=== PATIENT | female | born 1930 | race Caucasian/White ===

== ENCOUNTER 2017-03-08 19:35 | Observation (INO) | payer MEDICARE ==
[2017-03-08 20:54] LABS: Hematocrit 34 % (35-47); Hemoglobin 11.1 g/dl (12.0-16.0); Mean Corpuscular HGB Conc 32 g/dl (31-36); Mean Corpuscular Hemoglobin 30 pg (27-31); Mean Corpuscular Volume 94 fL (80-97); Mean Platelet Volume 8 um3 (7.4-10.4); Red Blood Count 3.65 10^6/ul (4.0-5.4); Red Cell Distribution Width 14 % (10.5-15); White Blood Count 15.3 10^3/ul (3.5-10.8)
--- NOTE | 2017-03-08 20:59 | RAD ---
CLINICAL HISTORY: Right lower quadrant pain. Relevant surgical history includes hysterectomy and "hernia repair" COMPARISON: Similar CT examination dated February 04, 2013 TECHNIQUE: Noncontrast CT examination of the abdomen and pelvis from the lung bases through the initial tuberosities. FINDINGS: VISUALIZED LUNG BASES: The lungs exhibit centrilobular emphysematous changes. There is scattered interlobular thickening. There is no pleural effusion. ABDOMEN AND PELVIS: Evaluation of the solid organs and vasculature is limited without intravenous contrast. The liver, spleen, pancreas and adrenal glands are grossly normal in appearance. The gallbladder is normal. Multiple fluid density renal cyst are identified. At the superior pole of the right collecting system there is a 4 mm calcification and at the superior pole left likely system there is a 4 mm calcification. There are no signs of hydronephrosis or calculi identified in either ureter. The small and large bowel are not distended. The partially gas-filled appendix is likely identified in the right lower quadrant (axial image 45 and sagittal image 31. There are no acute inflammatory changes in the right lower quadrant characteristic of acute appendicitis. There are diverticula throughout the length of the colon becoming more concentrated at the rectosigmoid colon. There is no definite wall thickening or pericolonic mesenteric fat stranding characteristic of acute diverticulitis. Inspissated contrast is noted in the rectosigmoid diverticula. There is no gross retroperitoneal or mesenteric lymphadenopathy. The uterus is surgically absent. The abdominal aorta and iliac arteries are coarsely calcified. Along the right anterior margin of the infrarenal abdominal aorta there is the appearance of an ulcer with aneurysmal dilatation measuring 1.9 x 2.4 cm in the axial plane (axial image 35). Further characterization of the arterial vasculature cannot BE made without IV contrast. Degenerative changes include multilevel loss of intervertebral disc height involving the lower thoracic and lumbar spine.There are no sinister bone lesions. IMPRESSION: 1. Diverticulosis without acute inflammatory changes, within the limitations of a noncontrast CT examination, consistent with diverticulitis. 2. 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 Further characterization of the arterial vasculature is not possible without contrast enhancement. 3. Nonobstructing renal calculi identified but there are no signs of hydroureter nephrosis. 4. Additional chronic, degenerative and iatrogenic findings described in the body of the report unlikely to be directly responsible for the patient's current presentation.
[2017-03-08 21:09] LABS: Albumin 3.1 g/dL (3.2-5.2); C Reactive Protein 208.47 mg/L (< 5.00); Calcium 8.7 mg/dL (8.6-10.3); EGFR African American 26.8 (>60); EGFR Non-African American 20.8 (>60); Globulin 3.1 g/dL (2-4); Potassium 4.3 mmol/L (3.5-5.0); Total Bilirubin 0.5 mg/dL (0.2-1.0); Total Protein 6.2 g/dL (6.4-8.9)
[2017-03-08] MEDS ORDERED: NS 0.9% 1000 ML* 1,000 ML IV ONE (21:41)
--- NOTE | 2017-03-08 23:09 | ED ---
Mandy Denson Seung-Jae, scribed for Willy Felder MD on 03/08/17 at 2018 . Abdominal Pain/Female - HPI Summary HPI Summary: Pt is a 86 y/o F presents to the ED with c/o abd pain. The pain is located in the RLQ region and is a cramping sensation. Onset was from last Tuesday (3 days ago) and pt states pain began after consumption of greasy foods at dinner. She states that the pain has been constant in severity and character since then. Her pain is aggravated by eating, and pt feels that she cannot eat despite the presence of appetite. She denies N/V, melena, and blood in her stool. Her PSHx include hysterectomy, appendectomy, and 3 different hernia surgeries. PMHx diverticulosis. - History of Current Complaint Chief Complaint: EDAbdPain Stated Complaint: ABD PAIN,WEAKNESS Time Seen by Provider: 03/08/17 19:57 Hx Obtained From: Patient Onset/Duration: Sudden Onset, Lasting Days, Still Present Timing: Constant Severity Initially: Severe Severity Currently: Severe Pain Intensity: 8 Pain Scale Used: 0-10 Numeric Location: Discrete At: RLQ Radiates: No Character: Cramping Aggravating Factor(s): Food Alleviating Factor(s): Nothing Associated Signs and Symptoms: Positive: Other: - negative melena. Negative: Blood in Stool, Decreased Appetite, Nausea, Vomiting Allergies/Adverse Reactions: Allergies Allergy/AdvReac Type Severity Reaction Status Date / Time Iodinated Contrast Media Allergy Unknown Verified 03/08/17 19:42 [IV CONTRAST DYE] Reaction Details PMH/Surg Hx/FS Hx/Imm Hx Cardiovascular History: Reports: Hx Cardiac Arrest - 20 years ago Denies: Hx Pacemaker/ICD Respiratory History: Reports: Hx Asthma, Hx Chronic Obstructive Pulmonary Disease (COPD), Hx Seasonal Allergies GI History: Reports: Hx Diverticulosis, Hx Gastroesophageal Reflux Disease, Other GI Disorders - constipation Sensory History: Reports: Hx Cataracts - bilat in 2010, Hx Contacts or Glasses, Hx Vision Problem Denies: Hx Hearing Aid Opthamlomology History: Reports: Hx Cataracts - bilat in 2010, Hx Contacts or Glasses, Hx Vision Problem Psychiatric History: Denies: Hx Panic Disorder - Cancer History Hx Chemotherapy: No Hx Radiation Therapy: No - Surgical History Surgery Procedure, Year, and Place: hysterectomy 1969-family guess, hernia repair 1984, TONSILLECTOMY Hx Anesthesia Reactions: No Infectious Disease History: Reports: Hx Clostridium Difficile Denies: Traveled Outside the [place] in Last 30 Days - Family History Known Family History: Positive: Unknown - adopted - Social History Alcohol Use: None Substance Use Type: Reports: None Hx Tobacco Use: Yes Smoking Status (MU): Former Smoker Review of Systems Negative: Fever Positive: Abdominal Pain, Other - negative melena . Negative: Vomiting, Nausea Positive: other - Negative blood in stool All Other Systems Reviewed And Are Negative: Yes Physical Exam Triage Information Reviewed: Yes Vital Signs On Initial Exam: Initial Vitals Temp Pulse Resp BP Pulse Ox 97.6 F 80 18 102/53 95 03/08/17 19:42 03/08/17 19:42 03/08/17 19:42 03/08/17 19:42 03/08/17 19:42 Vital Signs Reviewed: Yes Appearance: Positive: Well-Appearing, No Pain Distress Skin: Positive: Warm, Skin Color Reflects Adequate Perfusion, Dry Head/Face: Positive: Normal Head/Face Inspection Eyes: Positive: Normal ENT: Positive: Normal ENT inspection Neck: Positive: Supple, Nontender Respiratory/Lung Sounds: Positive: Clear to Auscultation, Breath Sounds Present Cardiovascular: Positive: RRR Abdomen Description: Positive: Nontender, Soft Bowel Sounds: Positive: Present Musculoskeletal: Positive: Normal Neurological: Positive: Normal Psychiatric: Positive: Normal Diagnostics - Vital Signs Vital Signs Temp Pulse Resp BP Pulse Ox 03/08/17 19:42 97.6 F 80 18 102/53 95 - Laboratory Lab Results: Lab Results 03/08/17 03/08/17 03/08/17 Range/Units 20:45 20:45 20:45 WBC 15.3 H (3.5-10.8) 10^3/ul RBC 3.65 L (4.0-5.4) 10^6/ul Hgb 11.1 L (12.0-16.0) g/dl Hct 34 L (35-47) % MCV 94 (80-97) fL MCH 30 (27-31) pg MCHC 32 (31-36) g/dl RDW 14 (10.5-15) % Plt Count 172 (150-450) 10^3/ul MPV 8 (7.4-10.4) um3 Neut % (Auto) 82.8 (38-83) % Lymph % (Auto) 5.6 L (25-47) % Lamb % (Auto) 9.7 H (1-9) % Eos % (Auto) 1.5 (0-6) % Baso % (Auto) 0.4 (0-2) % Absolute Neuts (auto) 12.7 H (1.5-7.7) 10^3/ul Absolute Lymphs (auto) 0.9 L (1.0-4.8) 10^3/ul Absolute Monos (auto) 1.5 H (0-0.8) 10^3/ul Absolute Eos (auto) 0.2 (0-0.6) 10^3/ul Absolute Basos (auto) 0.1 (0-0.2) 10^3/ul Absolute Nucleated RBC 0.01 10^3/ul Nucleated RBC % 0 Sodium 135 (133-145) mmol/L Potassium 4.3 (3.5-5.0) mmol/L Chloride 108 (101-111) mmol/L Carbon Dioxide 18 L (22-32) mmol/L Anion Gap 9 (2-11) mmol/L BUN 49 H (6-24) mg/dL Creatinine 2.23 H (0.51-0.95) mg/dL Est GFR ( Amer) 26.8 (>60) Est GFR (Non-Af Amer) 20.8 (>60) BUN/Creatinine Ratio 22.0 H (8-20) Glucose 153 H (70-100) mg/dL Lactic Acid 0.7 (0.5-2.0) mmol/L Calcium 8.7 (8.6-10.3) mg/dL Total Bilirubin 0.50 (0.2-1.0) mg/dL AST 13 (13-39) U/L ALT 13 (7-52) U/L Alkaline Phosphatase 52 (34-104) U/L C-Reactive Protein 208.47 H (< 5.00) mg/L Total Protein 6.2 L (6.4-8.9) g/dL Albumin 3.1 L (3.2-5.2) g/dL Globulin 3.1 (2-4) g/dL Albumin/Globulin Ratio 1.0 (1-3) Lipase 11 (11.0-82.0) U/L Result Diagrams: 03/08/17 20:45 03/08/17 20:45 Lab Statement: Any lab studies that have been ordered have been reviewed, and results considered in the medical decision making process. - CT Abdomen/Pelvis CT Interpretation: Positive (See Comments) - IMPRESSION: 1. Diverticulosis without acute inflammatory changes, within the limitations of a noncontrast CT examination, consistent with diverticulitis. 2. 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 Further characterization of the arterial vasculature is not possible without contrast enhancement. 3. Non-obstructing renal calculi identified but there are no signs of hydroureter nephrosis. 4. Additional chronic, degenerative, and iatrogenic findings described in the body of the report unlikely to be directly responsible for patient's current presentation. CT Interpretation Completed By: Radiologist Re-Evaluation - Re-Evaluation First Eval Re-Evaluation Time: 21:51 Comment: Discussed results with pt. Abdominal Pain Fem Course/Dx - Course Course Of Treatment: Ms. Guerrero presented with three days of crampy RLQ pain after eating. She has had GI problems in the past and sees Dr. Fernandes. She is known to have significant diverticulosis. Her labs revealed a leukocytosis and elevated CRP with a normal lactic acid. I am somewhat concerned for intestinal angina but her lactate is normal after 3 days and she does not seem to be in danger. She has had renal insufficiency for a couple years at least which is worsening and may be complicated by dehydration. She is getting IV fluids here now and will be reassessed. Her pressure has been a little low and I expect it to improve. - Diagnoses Differential Diagnosis: Positive: Abdominal Aortic Aneurysm Provider Diagnoses: Abdominal pain - Provider Notifications Discussed Care Of Patient With: Moises Fernandes Time Discussed With Above Provider: 20:15 Instructed by Provider To: Other - Pt has been predominantly seen for diarrhea recently, and not for pain. Discussed care of pt with Dr. Mackenzie Huerta at 22: 13, making aware of pt and discussing plan which she agrees with. Discharge - Discharge Plan Condition: Stable Disposition: OTHER Discharge Disposition Comment: Pt will be signed out to Dr. Arthur, pending dispo, awaiting UA Referrals: Aman James MD [Primary Care Provider] - The documentation as recorded by the Mandy wood Seung-Jae accurately reflects the service I personally performed and the decisions made by me, Willy Felder MD.
[2017-03-09 02:00] LABS: Urine Bilirubin Negative (Negative); Urine Glucose Negative (Negative); Urine Nitrite Negative (Negative)
[2017-03-09 02:09] LABS: Urine Bacteria 1+ (Absent)
[2017-03-09] MEDS ORDERED: Al Hydrox/Mg Hydrox/Simet LIQ* 30 ML UDC PO PRN (02:26)
[2017-03-09] MEDS ORDERED: Docusate CAP* 100 MG PO PRN (02:26)
[2017-03-09] MEDS ORDERED: Acetaminophen TAB* 325 MG PO PRN (02:26)
[2017-03-09] MEDS ORDERED: Senna TAB PO PRN (02:26)
[2017-03-09] MEDS ORDERED: Ondansetron INJ* 2 MG/ML VIAL IV PRN (02:26)
[2017-03-09] MEDS ORDERED: NS 0.9% 1000 ML* 1,000 ML IV SCH (02:30)
[2017-03-09] MEDS ORDERED: Albuterol HFA INHALER* 8 gm MDI INH PRN (02:33)
[2017-03-09] MEDS ORDERED: Zosyn per Pharmacy* NOTE FOLLOW UP SCH (03:00)
[2017-03-09] MEDS ORDERED: CMCS:Melatonin (NF) 3 MG TAB PO PRN (03:02)
[2017-03-09 04:55] LABS: Hematocrit 30 % (35-47); Hemoglobin 9.9 g/dl (12.0-16.0); Mean Corpuscular HGB Conc 33 g/dl (31-36); Mean Corpuscular Hemoglobin 31 pg (27-31); Mean Corpuscular Volume 95 fL (80-97); Mean Platelet Volume 8 um3 (7.4-10.4); Red Blood Count 3.21 10^6/ul (4.0-5.4); Red Cell Distribution Width 14 % (10.5-15)
[2017-03-09 05:16] LABS: Calcium 8.1 mg/dL (8.6-10.3); EGFR African American 30.4 (>60); EGFR Non-African American 23.6 (>60); Potassium 4.4 mmol/L (3.5-5.0)
[2017-03-09] MEDS: Heparin VIAL(*) 5000 UNITS/ML VIAL (FIVE THOUSAND) SUBCUT SCH ×2 (05:43→14:45)
[2017-03-09] MEDS ORDERED: Omeprazole CAP* 20 MG PO SCH (06:00)
--- NOTE | 2017-03-09 08:23 | HP ---
CC: Dr. James * HISTORY AND PHYSICAL: DATE OF ADMISSION: 03/09/17 TIME OF EVALUATION: 0200. PRIMARY CARE PHYSICIAN: Aman James MD CHIEF COMPLAINT: Abdominal pain. HISTORY OF PRESENT ILLNESS: This is an 86-year-old female with a past medical history of intestinal issues per the patient including a history diverticulitis , who states her pain began shortly after dinner 3 evenings ago when she had pizza and chicken wings. Since then, she has had minimal appetite. She has been losing weight. She developed pain after eating. The pain has gotten worse. No nausea, vomiting. No diarrhea. She has had normal bowel movements this morning. With her last normal bowel movement, the pain is mainly in her right lower quadrant. She denies any fevers, chills. No chest pain, no shortness of breath. She does state over the last few months, she has had weight loss with anorexia. She is following Dr. Fernandes regarding her GI issues. Prior to this incident, she felt that she was overall doing relatively well. She denies any lightheadedness or dizziness. She did walk to the bathroom to use the urinal and was unsteady. In the emergency room, the patient had labs, imaging, a liter of normal saline and was referred to the hospitalist service for further evaluation. PAST MEDICAL HISTORY: 1. CKD. 2. History of coronary artery disease, status post PR. 3. Asthma. 4. Osteoporosis. 5. History of diverticulitis. 6. GERD. 7. Hyperlipidemia. 8. History of C. diff. 9. Status post tonsillectomy and adenoidectomy. 10. Hysterectomy and bilateral salpingo-oophorectomy. 11. Appendectomy. 12. Umbical and right inguinal hernia repair in the past. 13. History of bilateral cataract surgeries. 14. History of pseudoobstruction. MEDICATIONS: 1. Advair 250/50 one puff b.i.d. 2. Spiriva inhaler 1 puff daily. 3. Carvedilol 6.25 mg p.o. b.i.d. 4. Simvastatin 10 mg p.o. daily. 5. Singulair 20 mg daily. 6. Omeprazole 20 mg daily. 7. Spironolactone 12.5 mg p.o. daily. 8. Diovan 160/12.5 mg daily. 9. Aspirin 81 mg daily. 10. Probiotic daily. 11. Daily Fiber 2 caps twice a day. 12. MiraLAX as needed. ALLERGIES: The patient has allergy to CONTRAST DYE. FAMILY HISTORY: The patient is adopted. SOCIAL HISTORY: The patient lives at home alone. Her was recently moved to a halfway. 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 She has 3 children; her daughter lives right next door. Her older son, Marcio Guerrero, is her healthcare proxy. She quit smoking 6 or 7 years ago, was a lifelong smoker. No alcohol use or illicit drug use. Code status confirmed and MOLST form completed as a DNR/DNI. REVIEW OF SYSTEMS: A 14-point review of systems was mentioned. Pertinent positives and negatives mentioned in the HPI, otherwise negative. PHYSICAL EXAMINATION GENERAL: A frail elderly female, in no acute distress with 3 of her children at the bedside. VITAL SIGNS: Temp 98.6, pulse rate 72, respiratory rate 18, oxygen saturation 96% on room air, blood pressure 95/68. HEENT: Head is normocephalic. Pupils are equal and reactive. Anicteric. Oropharynx: Mucous membranes dry. NECK: Supple. No lymphadenopathy. RESPIRATORY: Diminished breath sounds. No wheezes, rhonchi, or rales. CARDIAC: Regular rate and rhythm. Soft systolic murmur heard throughout. ABDOMEN: Positive bowel sounds. Soft, nondistended, and nontender. EXTREMITIES: Chronic hemosiderin changes. No clubbing, cyanosis, or edema. Palpable distant pulses. NEUROLOGIC: Alert and oriented x3. No focal neurologic deficits. DIAGNOSTIC STUDIES/LAB DATA: Laboratory Data: White count 15.3, hemoglobin 11.1, hematocrit 34, platelets 172. Sodium 135, potassium 4.3, chloride 108, bicarb 18, BUN 49, creatinine 2.23. CRP 208. Urine shows +1 ketones, +1 leukocytes, +1 whites, squamous cells are present. Radiographic Data: Abdomen and pelvis CT, diverticulosis without acute inflammatory changes with some limitations of noncontrast CT examination consistent with diverticulitis, focal aneurysm, dilatation of the infrarenal abdominal aorta with appearance of a right midline anterolateral ulcer causing aneurysm with dilatation of a 2.4 cm in diameter. Further characterization of the aorta was not possible without contrast enhancement. Nonobstructive renal calculi; no signs of the hydroureter, nephrosis, chronic degenerative and iatrogenic findings. ASSESSMENT: This is an 86-year-old female with a past medical history of diverticulitis and pseudoobstruction, who presents to the emergency room with progressively worsening abdominal pain. 1. Abdominal pain. Assessment: The patient had a noncontrast CT, did not show any significant findings of diverticulitis, but I suspect this is likely diverticulitis. She has an elevated white count, CRP, and her pain developed after eating and is not able to eat at this time. Her symptoms have improved after a liter of fluid. Because her blood pressures have been soft and she has been unsteady on her feet, it was recommended that she be admitted overnight for observation. Plan: We will admit to [address] [place] [address] on gentle fluids. She is only 40 kg. Start her on Zosyn and place her on a soft diet to advance as tolerated. We will repeat her labs in the morning. 2. [id number] kidney injury. Assessment: I suspect this is secondary to prerenal azotemia from decreased p.o. Plan: She has got a liter of normal saline in the emergency room; we will start her on gentle IV fluids. CHRONIC MEDICAL PROBLEMS: 1. Coronary artery disease in the setting of her hypotension and her worsening renal failure, I am going to hold her spironolactone, Diovan, and carvedilol. Monitor her vitals closely. 2. Asthma. Resume inhaler regimen. 3. Hyperlipidemia. Hold simvastatin as it is not on formulary. 4. GERD. Continue her omeprazole and her bowel regimen. 5. FEN. As mentioned soft diet, advance as tolerated with gentle IV fluids. 6. DVT prophylaxis. The patient scores high risk. Place her on heparin subcu t.i.d. 7. Code status. The patient is DNR/DNI. MOLST form will be completed this evening. PATIENT TIME: Greater than 75 minutes was spent doing the history and physical , more than half the time was spent in direct patient contact. [id number]/[facility] #: [id number] DARREN
[2017-03-09] MEDS ORDERED: Mometasone/Formoter 200/5 MDI INH SCH (09:00)
[2017-03-09] MEDS ORDERED: Aspirin EC Low Dose* 81 MG TAB.EC PO SCH (09:00)
[2017-03-09 11:46] VITALS: BP 125/91
[2017-03-09] MEDS ORDERED: ZOSYN 3.375 GM Q12H per EXTENDED INFUSION IVPB SCH ×2 (12:00)
[2017-03-09] MEDS ORDERED: Montelukast Sodium TAB* 10 MG PO SCH (21:00)
--- NOTE | 2017-03-10 02:03 | DS ---
CC: Aman James MD * DISCHARGE SUMMARY: DATE OF ADMISSION: 03/09/17 DATE OF DISCHARGE: 03/09/17 PRIMARY CARE PROVIDER: Aman James MD. PRIMARY DIAGNOSES: 1. Abdominal pain. 2. Abnormal urinalysis in the absence of culture data. SECONDARY DIAGNOSES: Include: 1. Leukocytosis. 2. Acute on chronic renal failure. 3. History of chronic kidney disease. 4. Coronary artery disease. 5. Asthma. 6. Gastroesophageal reflux disease. 7. History of Clostridium difficile. 8. Hyperlipidemia. MEDICATIONS AT DISCHARGE: Include: 1. Simvastatin 10 mg daily. 2. Polyethylene glycol 17 g daily, scheduled. 3. Carvedilol 6.25 mg twice daily. 4. Aspirin 81 mg daily. 5. Montelukast 20 mg at bedtime. 6. Advair 250/50 one puff twice daily. 7. Diovan 160/12.5 one tab daily. 8. Spiriva 1 cap inhaled twice daily. 9. Spironolactone 12.5 mg daily. 10. Omeprazole 20 mg daily. 11. Probiotic 4 mg daily. 12. Fiber 1 cap daily. PERTINENT IMAGING: During hospital stay, CT abdomen and pelvis without contrast in the setting of CKD. Impression: 1. Diverticulosis without acute inflammatory change. Please note the impression indicates consistent with diverticulitis. Results reviewed with radiologist and report will be updated to include addendum that this is not consistent with diverticulitis. 2. 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 PERTINENT LABORATORY DATA: Urinalysis positive for 1+ blood, 1+ leuk esterase, 1+ white blood cell count, and 1+ bacteria. Also positive for squamous epithelial cells. Creatinine on presentation 2.23 and at discharge 2.0. CRP 208, white blood cell count 15 on presentation and 9 on discharge, 80% neutrophils. HISTORY OF PRESENT ILLNESS AND HOSPITAL COURSE: This is an 86-year-old female with the past medical history as outlined in the history of present illness on the day of admission including abdominal pain evaluated over years and currently under the care of Dr. Fernandes of Gastroenterology, who was in her usual state of health until after she ate pizza and wings, developed crampy abdominal pain on her right side. She noted no nausea, vomiting or diarrhea, but did have anorexia for 3 days prior to presentation associated with increasing weakness and fatigue for which she sought care in the emergency room. In the emergency room, she was noted with a leukocytosis as well as acute on chronic kidney failure and was admitted to the hospital. In the setting of her leukocytosis and elevated CRP, she did receive 2 doses of Zosyn during the course of her hospital stay as well as approximately 1.5 L of normal saline. After 1 L of crystalloid replacement as well as 1 dose of antibiotics in the morning on the day of admission, the patient felt completely back to her baseline. She had no additional abdominal pain. She was able to tolerate breakfast and lunch. She had no nausea, vomiting, or diarrhea. The patient denied any urinary symptoms including dysuria, frequency, or hesitancy. In the absence of CT evidence, diverticulitis is not suspected. Her symptoms on this episode certainly sound like biliary colic with a crampy right-sided abdominal pain in the setting of fatty food complicated by dehydration, improved with normal saline. In the setting of leukocytosis, would recommend repeating lab work to ensure improvement off antibiotics. Her urinalysis did suggest the possibility of urinary tract infection; however, she was asymptomatic and will not be discharged to continue antibiotics. Additionally, this urinalysis was noted to be contaminated with squamous epithelial cells. An aneurysm less than 4 cm identified in the aorta, which appears to be new compared to prior CT evidence. It is unclear whether this small aneurysm would represent the etiology of her abdominal pain; however, it should be taken into consideration given her longstanding history of abdominal pain. At followup please; 1. Follow CBC as well as CRP to ensure no continued underlying evidence of infection. 2. Evaluate for urinary symptoms, treat if necessary. The patient received 2 doses of antibiotics during the course of the hospital stay "Zosyn." 3. No other specific labs or vitals that need followup. None of patient's the home medications were changed. Reasons to return to the hospital included but not limited to recurrent or worsening symptoms including abdominal pain, nausea, vomiting, diarrhea, fevers , chills, drenching night sweats, chest pain, shortness of breath, loss of consciousness, near loss of consciousness, inability to obtain or tolerate food or her medications were discussed at length with the patient and her daughter. They acknowledged understanding. TIME SPENT: Greater than 60 minutes were spent on the discharge of this patient , greater than half was spent [id number] with the patient. [id number]/[facility] #: [id number] MTDDarin
== END 2017-03-09 14:55 | disposition home or self-care (01) ==
LOC: ED 19:35 → MED 03-09 02:26
PROVIDERS: ADMIT Pediatrics; ATTEND Internal Medicine
DX: R10.9 Unspecified abdominal pain (principal); D72.829 Elevated white blood cell count, unspecified; N18.9 Chronic kidney disease, unspecified; I25.10 Atherosclerotic heart disease of native coronary artery without angina pectoris; I25.2 Old myocardial infarction; E78.5 Hyperlipidemia, unspecified; J45.909 Unspecified asthma, uncomplicated; K21.9 Gastro-esophageal reflux disease without esophagitis; Z79.82 Long term (current) use of aspirin; Z79.899 Other long term (current) drug therapy; Z87.891 Personal history of nicotine dependence
CPT/HCPCS: 36415; 74176; 80048; 80053; 81003; 81015; 83605; 83690; 85025; 86140; 87086; 94640; 96365; 96366; 96372; 99284; A9270-GY; G0378; J1644; J2543

== ENCOUNTER 2017-08-16 14:24 | Day surgery (SDC) | payer BC, MEDICARE ==
[~2017-08-16 14:24] MED LIST: Buffered Lidocaine 0.9% SYRIN* 5 ML/SYR SYRINGE INTRADERM ONE; Dexamethasone IV* 4 MG/ML 1 ML (4 MG) IV SLOW PU ONE
[2017-08-16] MEDS ORDERED: Dexamethasone IV* 4 MG/ML 1 ML (4 MG) ONE (14:58)
[2017-08-16] MEDS ORDERED: ceFAZolin 2 GM PREMIX (*) 2 GM/50 ML BAG IVPB ONE (14:58)
[2017-08-16] MEDS ORDERED: Buffered Lidocaine 0.9% SYRIN* 5 ML/SYR SYRINGE ONE (14:59)
[2017-08-16] MEDS ORDERED: Propofol* 10 MG/ML 20 ML BTL IV PUSH ONE (15:58)
[2017-08-16] MEDS ORDERED: Midazolam* 1 MG/ML 2 ML VIAL (2 MG) ONE (15:58)
[2017-08-16] MEDS ORDERED: fentaNYL* 50 MCG/ML 2 ML VIAL (100 MCG VIAL) ONE (15:58)
[2017-08-16] MEDS ORDERED: Ondansetron INJ* 2 MG/ML VIAL ONE (15:58)
[2017-08-16] MEDS ORDERED: Lidocaine 1% MPF wEPI 200,000* 30 ML SDV ONE (16:20)
[2017-08-16] MEDS ORDERED: Mineral Oil Sterile, TOPICAL* 25 ML BTL ONE (16:21)
[2017-08-16] MEDS ORDERED: Bupivacaine 0.25% SDV* 30 ML ONE (16:21)
[2017-08-16 19:50] VITALS: BP 129/68
== END 2017-08-16 19:49 | disposition home or self-care (01) ==
LOC: OR 14:24
PROVIDERS: ATTEND Plastic Surgery
DX: C44.329 Squamous cell carcinoma of skin of other parts of face (principal); N18.2 Chronic kidney disease, stage 2 (mild); J45.40 Moderate persistent asthma, uncomplicated; I42.9 Cardiomyopathy, unspecified; I25.2 Old myocardial infarction; I25.10 Atherosclerotic heart disease of native coronary artery without angina pectoris; R60.9 Edema, unspecified; E78.5 Hyperlipidemia, unspecified; I71.4 Abdominal aortic aneurysm, without rupture; Z87.891 Personal history of nicotine dependence; I12.9 Hypertensive chronic kidney disease with stage 1 through stage 4 chronic kidney disease, or unspecified chronic kidney disease; I51.81 Takotsubo syndrome
CPT/HCPCS: 88305; 88331; 88332; A9270-GY; J0690; J1100; J2001; J2250; J2405; J2704; J3010

== ENCOUNTER 2018-02-07 10:20 | Day surgery (SDC) | payer BC, MEDICARE ==
[~2018-02-07 10:20] MED LIST changes: -Dexamethasone IV* 4 MG/ML 1 ML (4 MG) IV SLOW PU ONE
[2018-02-07] MEDS ORDERED: Lidocaine 2% MPF* 2 ML VIAL ONE (12:27)
[2018-02-07] MEDS ORDERED: fentaNYL* 50 MCG/ML 2 ML VIAL (100 MCG VIAL) ONE (12:27)
[2018-02-07] MEDS ORDERED: Propofol* 10 MG/ML 20 ML BTL IV PUSH ONE (12:27)
[2018-02-07] MEDS ORDERED: BSS OPTH.SOL* BTL ONE (12:29)
[2018-02-07] MEDS ORDERED: Lidocain 1% EPI 1:100,000 * 30 ML MDV ONE (12:30)
[2018-02-07] MEDS ORDERED: Povidone Iodine 5% OPTH* 30 ML BTL ONE (12:30)
[2018-02-07] MEDS ORDERED: Bacitracin OPHTH.OINT* 3.5 GM ONE (12:31)
[2018-02-07] MEDS ORDERED: Tetracaine 0.5% OPTH.SOL 4 ML* 1 DROP BTL ONE (12:31)
[2018-02-07 14:21] VITALS: BP 151/75
--- NOTE | 2018-02-08 07:45 | OP ---
DATE OF OPERATION: 02/07/18 - [facility] DATE OF : 30 SURGEON: Steve Soares MD BRICK MASON: None. ANESTHESIA: Local MAC. PRE-OP DIAGNOSIS: Lower lid ectropion, left eye greater than right. POST-OP DIAGNOSIS: Lower lid ectropion, left eye greater than right. OPERATIVE PROCEDURE: Repair of lower lid ectropion, right eye lateral tarsal strip shortening, left eye lateral tarsal strip shortening and medial spindle. COMPLICATIONS: None. ESTIMATED BLOOD LOSS: Minimal. DESCRIPTION OF PROCEDURE: The patient was brought to the operating room and received a small amount of intra-venous sedation. She was given infiltration of 1% lidocaine with epinephrine to the lateral canthal angle of each eyelid down to the periosteum as well as the inferior fornix and nasal aspect of the lower lid of the left eye. The patient was then prepped and draped in the usual sterile fashion for ophthalmic surgery and a drop of tetracaine was placed in each eye. Attention was directed to the right eye. A Vaughan tenotomy scissor was used to form a lateral canthotomy. An inferior cantholysis followed. The lower lid was to anterior and posterior lamella. The posterior lamella was isolated and a horizontal incision through the conjunctiva beneath the tarsal plate was performed. Excision of the marginal tissue was performed with a Juan scissors and the posterior aspect of the tarsus was gently scraped with 15 Bard-Cornelius blade. The tarsus was then pulled to the lateral orbital rim to determine how much of it should be excised. The distal aspect of the tarsus was excised. A 4-0 Vicryl suture was placed in the tarsus near the new distal end and then through the periosteum of the orbital rim at a point that was lateral and slightly posterior to the anterior edge of the rim, slightly superior to midline. A second suture followed. Both sutures were tied securely thus shortening the lower lid and pulling it tightly against the globe. The sutures were trimmed. A wedge of cilia and skin was excised and the remaining skin tissue was sewn closed with interrupted 6-0 silk sutures. Attention was then directed to the contralateral eye. Here, there was impressive thickening of the lower lid with keratinization of the conjunctiva. Landmarks were difficult to identify; however, the inferior punctum was found. A horizontal spindle measuring approximately 6 mm wide x 8 mm vertical was created at the lower aspect of the tarsus inferior to the inferior punctum. The conjunctiva was excised. The lower lid retractors were found. A double- arm 6-0 Vicryl suture was placed through the lower lid retractors and then through the superior aspect of the conjunctiva at the edge of the spindle. The needles were then placed back through the conjunctival fornix out to the skin and tied, thus rolling the lower lid nasal aspect posteriorly. The horizontal laxity was then addressed. In similar fashion to the prior eye, a lateral tarsal strip was fashioned and attached to the periosteum of the anterior lateral orbit. Again, the skin was closed with interrupted 6-0 silk sutures. At the end of the case, there was no active bleeding. The eyelids appeared symmetric and in good position with a slight overcorrection. Topical bacitracin ointment was placed on the wound and in the eye. The patient was sent to recovery room in stable condition where ice was applied. The patient was sent home with post-operative instructions and followup appointment given. [id number]/[facility] #: [id number] DARREN
== END 2018-02-07 14:18 | disposition home or self-care (01) ==
LOC: OREAST 10:20
PROVIDERS: ATTEND Ophthalmology
DX: H02.105 Unspecified ectropion of left lower eyelid (principal); H02.102 Unspecified ectropion of right lower eyelid; I25.10 Atherosclerotic heart disease of native coronary artery without angina pectoris; I25.2 Old myocardial infarction; I12.9 Hypertensive chronic kidney disease with stage 1 through stage 4 chronic kidney disease, or unspecified chronic kidney disease; E78.5 Hyperlipidemia, unspecified; Z87.891 Personal history of nicotine dependence; J45.909 Unspecified asthma, uncomplicated; N18.9 Chronic kidney disease, unspecified; K21.9 Gastro-esophageal reflux disease without esophagitis; M06.9 Rheumatoid arthritis, unspecified
CPT/HCPCS: A9270-GY; J2704; J3010

== ENCOUNTER 2018-03-25 22:50 | Inpatient (IN) | payer MEDICARE ==
--- OUTSIDE RECORDS SUMMARY | 2018-03-25 23:03 | XMS REPORT ---
:1930 External Reference #:[id number] Author Organization Steve Soares M.D., [facility] Address [address] [place] [address] Phone [phone] Care Team Providers Name Role Phone Erika PEDRAZA, Aman Care Team Information Senior Developer Unavailable Erika PEDRAZA, Aman Primary Care Physician Unavailable Payers Type Date Identification Numbers Payment Provider Subscriber Commercial Policy Number: [id number] BS Medicare Analilia Guerrero PayID: [id number] [address] [address] [place] [address] Problems Date Description Provider Status Onset: 05/12/2016 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 Active Onset: 04/25/2015 Punctate keratitis Steve Soares M.D. Active Onset: 04/25/2015 Senile ectropion Steve Soares M.D. Active Family History Date Family Member(s) Problem(s) Comments Father Noncontributory Mother Noncontributory Social History Type Date Description Comments ETOH Use Rarely consumes alcohol Smoking Patient is a former smoker Allergies, Adverse Reactions, Alerts Date Description Reaction Status Severity Comments 04/25/2015 Iodine active 04/25/2015 Seasonal active Medications Medication Date Status Form Strength Qnty SIG Indications Ordering Provider Tobradex Active Ointment 0.3-0.1% 3.500g applyOU H01.025 Steve mcgrath bid x 1 twin Soares M.D. Verapamil HCL Active Tablets Unknown 000 Diovan Active Tablets Unknown 000 Simvastatin Active Tablets Unknown 000 Klor-Con Active Packet Unknown [address] Unknown 000 Singulair 00/00/0 Active Tablets 1 by Unknown 000 mouth every day Evista 0 Active Tablets Unknown 000 Spiriva Active Capsules Unknown Handihaler 000 Albuterol Active Nebulizer Unknown Sulfate 000 Vital Signs Date Vital Result Comment 05/16/2017 Intraocular Pressure Right Eye 12 mmHg Intraocular Pressure Left Eye 12 mmHg 05/12/2016 Intraocular Pressure Right Eye 18 mmHg Intraocular Pressure Left Eye 18 mmHg 04/25/2015 Intraocular Pressure Right Eye 17 mmHg Intraocular Pressure Left Eye 18 mmHg Results Description No Information Procedures Date CPT Code Description Status 02/07/2018 51316 Repair Ectropian, Extensive (Eg, Tarsal Strip Completed Operations) 02/07/2018 35238 Repair Ectropian, Suture Completed 01/13/2018 92408 External Photography W/Interpretation & Report Completed 01/13/2018 05176 Eye Exam Est Intermediate Completed 05/16/2017 09425 External Photography W/Interpretation & Report Completed 05/16/2017 52313 Eye Exam Est Intermediate Completed 05/12/2016 05188 Eye Exam Est Intermediate Completed 05/12/2016 85883 Correct Trichiasis, Epilation By Forceps Only Completed 04/25/2015 93268 Eye Exam Est Comprehensive Completed 04/25/2015 57094 Refraction Completed 08/20/2011 82743 Ophthalmoscopy Subsequent Completed 08/20/2011 79955 Eye Exam Est Intermediate Completed 05/25/2011 18673 Extracapsular Cataract Extraction W/Intraocular Lens Completed 05/10/2011 85824 Extracapsular Cataract Extraction W/Intraocular Lens Completed 04/02/2011 04834 Ophthalmic Biometry By Partial Coherence Interferometry Completed W/Intra 04/02/2011 36017 Eye Exam Est Comprehensive Completed 04/17/2010 41903 Eye Exam Est Intermediate Completed 04/10/2010 61731 Eye Exam Est Intermediate Completed 04/02/2010 24522 Eye Exam New Comprehensive Completed Plan of Care 03/15/2018 - Steve Soares M.D.H02.135 Senile ectropion of left lower urhpfoH40.132 Senile ectropion of right lower rukikmV43.022 Squamous blepharitis right lower bdeaadQ45.025 Squamous blepharitis left lower eyelidNew Medication:Tobradex 0.3-0.1 %Follow up:2 wks VF, check blepharitis
--- OUTSIDE RECORDS SUMMARY | 2018-03-25 23:03 | XMS REPORT ---
:1930 External Reference #:[id number] Author Organization [place] [employer] [facility] Address [address] [place] [address] Phone [phone] Care Team Providers Name Role Phone Reno Rogers MD Care Team Information Business Mail Entry Clerk Unavailable Aman Urena MD Primary Care Physician Unavailable Payers Type Date Identification Numbers Payment Provider Subscriber Health Maintenance Policy Number: Medicare Blue [facility] Analilia Dumont (O) [id number] Group Number: [id number] [address] [address] PayID: [id number] [place] [address] Problems Date Description Provider Status Onset: 01/03/2015 Essential hypertension Dagmar Dillard M.D. Active Onset: 01/03/2015 Coronary arteriosclerosis Dagmar Dillard M.D. Active Onset: 01/03/2015 Peripheral venous insufficiency Dagmar Dillard M.D. Active Onset: 01/03/2015 Edema Dagmar Dillard M.D. Active Onset: 01/28/2015 Tricuspid valve disorder, Dagmar Dillard M.D. Active non-rheumatic Onset: 07/14/2015 Old myocardial infarction Dagmar Dillard M.D. Active Onset: 07/14/2015 Hyperlipidemia Dagmar Dillard M.D. Active Onset: 03/10/2017 Abdominal aortic aneurysm without Aman Urena, Active rupture Vilma,IVANNA Note: 2.4 cm Onset: 03/23/2017 Diverticular disease of colon Aman Urena M.D.,SAHRAP Active Note: recurrent divertic Onset: 03/23/2017 Cardiomyopathy Aman Urena M.D.,FACP Active Onset: 03/23/2017 Moderate persistent asthma Aman Urena M.D.,FACP Active Onset: 03/23/2017 Chronic kidney disease stage 2 Aman Urena M.D., FACP Active Onset: 03/23/2017 Ex-smoker Aman Urena M.D.,FACP Active Onset: 12/19/2017 Anemia Aman Urena M.D.,FACP Active Note: normocytic Onset: 12/19/2017 Recurrent abdominal pain Aman Urena M.D.,FACP Active Note: mimics diverticulitis, ?stricture Family History Date Family Member(s) Problem(s) Comments General No Current Problems General Rheumatoid Arthritis Father due to Unknown Causes () Mother due to Unknown Causes () Children 3 First Daughter Rheumatoid Arthritis Siblings None adopted, no knowledge Social History Type Date Description Comments Marital Status in Old [place] Lives With Alone Occupation Retired Occupation Nurse Cigarette Use Former Cigarette Smoker 30 year pack history ETOH Use 02/01/2018 Occasionally consumes alcohol Smoking Patient is a former smoker quit smoking in 2009 Recreational Drug Use Denies Drug Use Daily Caffeine Regular Coffee Half a cup every morning Exercise Type/Frequency Does not exercise General Hx Text 3 kids Allergies, Adverse Reactions, Alerts Date Description Reaction Status Severity Comments 01/01/2015 Levaquin active tendonitis 01/01/2015 Iodinated Diagnostic Agents active rash 11/17/2017 Augmentin active sore mouth 12/19/2017 Bactrim Nausea and Vomiting active Moderate 03/03/2018 Tramadol active Medications Medication Date Status Form Strength Qnty SIG Indications Ordering Provider B12 Fast 03/03/ Active Tablets 5000mcg 90tabs sublingual E53.8 Vinnie Arnold 2018 Dispers daily Vilma Huerta Estrace 02/01/ Active Cream 0.1mg/GM 42.[address] Aman 2018 gm of vagina Mo Urena, 4x/wk for 2 M.D.,FACP wks then 2/wk ongoing Proair 12/19/ Active Aerosol 108(90Base 1units 2 puffs four Aman Respiclick 2017 ) mcg/Act times a day Mo Urena, as needed Vilma,FACP Montelukast 04/15/ Active Tablets 10mg 60tabs 2 by mouth Aman Viera 2017 every day Mo Urena M.D.,FACP Melatonin ER 03/23/ Active Tablets ER 5mg 30tabs 1 by mouth Aman 2016 every night Mo Urena, at bedtime Vilma,FACP Simvastatin 03/10/ Active Tablets 10mg 90tabs take one [place] 2016 tablet by Ivette mouth at , M.D. bedtime Miralax 03/10/ Active Powder 1/2 cap qod Aman 2016 Mo Urena M.D.,FACP Probiotic 03/10/ Active Capsules 30caps 1 by mouth Other 2016 every day Ordering Provider Fiber-Caps 03/10/ Active Tablets 625mg 1 capsule Other 2016 daily Ordering Provider Omeprazole / Active Capsules 20mg 90caps [address] amy Steele M.D. Singulair / Active Tablets 10mg 90tabs 1 by mouth Narinder every day Vilma Setele Advair Diskus / Active Aerosol 250-50mcg/ 180uni 1 puff by Narinder Dose ts mouth twice Ivette a day Vilma Spiriva / Active Capsules 18mcg 90caps 1 inhalation Narinder Handihaler 0000 by mouth Ivette every , M.DShona morning Carvedilol / Active Tablets 6.25mg 180tab 1 by mouth Narinder s twice a day Vilma Steele Aspirin / Active Tablets DR 81mg 1 by mouth Unknown 0000 every day Aldactone / Active Tablets 25mg 45tabs 1/2 tab by Narinder 0000 mouth every Ivette day Vilma Diovan HCT / Active Tablets 160-12.5mg 90tabs one tab Narinder 0000 daily Vilma Steele Cheratussin 11/17/ Hx Solution 100-10mg/5 118ml 5-10 R05 [facility] ac 2018 - ML milliliters Campos, 12/19/ by mouth [employer] TECH[employer]ICIAN 2018 four times a day as needed cough, use mostly at night Sulfamethoxaz 11/17/ Hx Tablets 800-160mg 14tabs 1 by mouth J20.9 [facility] ole/Trimethop 2017 - twice a day Campos, rim DS 2017 Amoxicillin/C 09/12/ Hx Tablets 875-125mg 20tabs one tab J01.90 [facility] lavulanate 2017 - twice/day Campos, Potassium [employer] TECH[employer]ICIAN 2017 Montelukast 03/10/ Hx Tablets 10mg 60tabs 2 tabs by Aman Viera 2017 - mouth every D. [place], 04/15/ day IVANNA Esparza 2017 Diovan 00/ Hx Tablets 160mg 1 by mouth Unknown 0000 - every day 2014 Evista 00/ Hx Tablets 60mg 1 by mouth Unknown 0000 - every day 2014 Proventil HFA / Hx Aerosol 108(90Base 2 puffs by Unknown 0000 - ) mcg/Act mouth every 09/05/ 4 hours as 2015 needed Xarelto / Hx Tablets 20mg 1 by mouth Unknown 0000 - every day 2014 Simvastatin / Hx Tablets 20mg 1 by mouth Unknown 0000 - every day 2016 Immunizations CPT Code Status Date Vaccine Reaction Lot # [id number] Given 12/19/2017 Pneumococcal Conjugate Vaccine 13 no reaction [id number] Valent For Intramuscular Use 11898 Given 07/25/2017 Influenza Virus Vaccine, Quadrivalent, Split, Preservative Free [id number] Given 07/13/2006 Pneumonia Vaccine Vital Signs Date Vital Result Comment 03/03/2018 Height 58 inches 4'10" Weight 107.00 lb Heart Rate 82 /min BP Systolic Sitting 126 mmHg BP Diastolic Sitting 80 mmHg Respiratory Rate 14 /min Pain Level 0 BMI (Body Mass Index) 22.4 kg/m2 02/01/2018 Height 58 inches 4'10" Weight 107.00 lb Heart Rate 81 /min BP Systolic Sitting 114 mmHg BP Diastolic Sitting 62 mmHg Body Temperature 97.9 F O2 % BldC Oximetry 98 % BMI (Body Mass Index) 22.4 kg/m2 12/19/2017 Height 58 inches 4'10" Weight 111.00 lb Heart Rate 74 /min BP Systolic Sitting 130 mmHg BP Diastolic Sitting 80 mmHg Body Temperature 97.1 F O2 % BldC Oximetry 94 % BMI (Body Mass Index) 23.2 kg/m2 11/17/2017 Weight 109.00 lb Heart Rate 84 /min BP Systolic 137 mmHg BP Diastolic 78 mmHg Body Temperature 98.7 F O2 % BldC Oximetry 98 % 09/12/2017 Weight 108.00 lb Heart Rate 78 /min BP Systolic Sitting 119 mmHg BP Diastolic Sitting 85 mmHg Body Temperature 97.5 F O2 % BldC Oximetry 89 % 04/08/2017 Height 47.50 inches 3'11.50" Weight 107.00 lb no shoes Heart Rate 78 /min BP Systolic Sitting 148 mmHg Rue reg cuff BP Diastolic Sitting 88 mmHg Rue reg cuff BP Systolic Standing 138 mmHg Rue reg cuff BP Diastolic Standing 84 mmHg Rue reg cuff Respiratory Rate 17 /min BMI (Body Mass Index) 33.3 kg/m2 Ejection Fraction 50-55% date 01/13/2015 ECHO 03/23/2017 Weight 102.50 lb Heart Rate 62 /min BP Systolic Sitting 114 mmHg BP Diastolic Sitting 72 mmHg Body Temperature 97.8 F O2 % BldC Oximetry 95 % 03/12/2016 Height 57.25 inches 4'9.25" Weight 118.00 lb Heart Rate 64 /min BP Systolic Sitting 128 mmHg left arm, reg cuff BP Diastolic Sitting 82 mmHg left arm, reg cuff BP Systolic Standing 118 mmHg left arm, reg cuff BP Diastolic Standing 82 mmHg left arm, reg cuff Respiratory Rate 16 /min BMI (Body Mass Index) 25.3 kg/m2 Ejection Fraction 50-55% 01/13/15 07/14/2015 Height 57.25 inches 4'9.25" Weight 119.75 lb w/o shoes Heart Rate 70 /min reg BP Systolic Sitting 116 mmHg Lue, reg cuff BP Diastolic Sitting 86 mmHg Lue, reg cuff BP Systolic Standing 120 mmHg Lue BP Diastolic Standing 84 mmHg Lue Respiratory Rate 18 /min BMI (Body Mass Index) 25.7 kg/m2 Ejection Fraction 50-55% as of 01/13/15 echo 01/28/2015 Height 57.25 inches 4'9.25" Weight 125.00 lb Heart Rate 60 /min BP Systolic Sitting 154 mmHg LA reg cuff BP Diastolic Sitting 102 mmHg LA reg cuff BP Systolic Standing 152 mmHg LA BP Diastolic Standing 98 mmHg LA Respiratory Rate 16 /min BMI (Body Mass Index) 26.8 kg/m2 Ejection Fraction 50-55% 01/13/15 01/03/2015 Height 58.75 inches 4'10.75" Weight 126.00 lb Heart Rate 66 /min reg BP Systolic 136 mmHg Ra, reg cuff BP Diastolic 90 mmHg Ra, reg cuff BP Systolic Sitting 144 mmHg LA, reg cuff BP Diastolic Sitting 98 mmHg LA, reg cuff BP Systolic Standing 142 mmHg LA BP Diastolic Standing 92 mmHg LA Respiratory Rate 18 /min BMI (Body Mass Index) 25.7 kg/m2 Ejection Fraction 35-40% 10/30/14 Results Test Date Test Result H/L Range Note CBC Auto Diff 12/17/2017 White Blood Count 6.2 10^3/uL 3.5-10.8 Red Blood Count 3.61 10^6/uL Low 4.0-5.4 Hemoglobin 11.0 g/dL Low 12.0-16.0 Hematocrit 33 % Low 35-47 Mean Corpuscular Volume 92 fL 80-97 Mean Corpuscular Hemoglobin 30 pg 27-31 Mean Corpuscular HGB Conc 33 g/dL 31-36 Red Cell Distribution Width 15 % 10.5-15 Platelet Count 213 10^3/uL 150-450 Mean Platelet Volume 7.1 um3 Low 7.4-10.4 Abs Neutrophils 4.0 10^3/uL 1.5-7.7 Abs Lymphocytes 1.2 10^3/uL 1.0-4.8 Abs Monocytes 0.6 10^3/uL 0-0.8 Abs Eosinophils 0.4 10^3/uL 0-0.6 Abs Basophils 0 10^3/uL 0-0.2 Abs Nucleated RBC 0 10^3/uL Granulocyte % 64.9 % 38-83 Lymphocyte % 19.0 % Low 25-47 Monocyte % 9.0 % High 0-7 Eosinophil % 6.7 % High 0-6 Basophil % 0.4 % 0-2 Nucleated Red Blood Cells % 0 Laboratory test finding 12/17/2017 Vitamin B12 293 pg/mL 180-914 1 Iron & Iron Binding Capacity 12/17/2017 Iron 82 g/dL 50-212 Unsaturated Iron Binding 142 g/dL Total Iron Binding Capacity 224 g/dL Low 250-450 Transferrin 160 mg/dL Low 203-362 % Iron Saturation 37 % 15-55 Basic Metabolic Panel 12/17/2017 Sodium 143 mmol/L 139-145 Potassium 4.7 mmol/L 3.5-5.0 Co2 Carbon Dioxide 25 mmol/L 22-32 Glucose 90 mg/dL 70-100 Blood Urea Nitrogen 32 mg/dL High 6-24 Creatinine 1.47 mg/dL High 0.51-0.95 BUN/Creatinine Ratio 21.8 High 8-20 Calcium 8.7 mg/dL 8.6-10.3 Egfr Non- 33.6 >60 Egfr 43.2 >60 2 Chloride 112 mmol/L High 101-111 Anion Gap 6 mmol/L 2-11 Laboratory test finding 12/17/2017 C Reactive Protein 3.32 mg/L < 5.00 3 Erythrocyte Sed Rate 39 mm/Hr 0-40 4 Rheumatoid Factor 48 IU/mL 0-14 5 Laboratory test finding 10/07/2017 Surgical Pathology SEE RESULT BELOW 6, 7 Laboratory test finding 08/16/2017 Surgical Pathology SEE RESULT BELOW 8 Lipid Profile 04/15/2017 Triglycerides 149 mg/dL 9 (Trig/Chol/HDL) Cholesterol 138 mg/dL 10 HDL Cholesterol 39.4 mg/dL 11 LDL Cholesterol 69 mg/dL 12 Laboratory test finding 04/15/2017 Ast (Sgot) 15 U/L 13-39 13 Creatine Kinase(CK) 35 U/L 10-223 14 C Reactive Protein 8.92 mg/L High < 5.00 15 Basic Metabolic Panel 03/18/2017 Sodium 135 mmol/L 133-145 Potassium 4.8 mmol/L 3.5-5.0 Chloride 105 mmol/L 101-111 Co2 Carbon Dioxide 22 mmol/L 22-32 Anion Gap 8 mmol/L 2-11 Glucose 131 mg/dL High 70-100 Blood Urea Nitrogen 34 mg/dL High 6-24 Creatinine 1.63 mg/dL High 0.51-0.95 BUN/Creatinine Ratio 20.9 High 8-20 Calcium 8.3 mg/dL Low 8.6-10.3 Egfr Non- 29.9 >60 Egfr 38.5 >60 16 Laboratory test finding 03/18/2017 C Reactive Protein 86.17 mg/L High < 5.00 17 CBC Auto Diff 03/18/2017 White Blood Count 6.6 10^3/uL 3.5-10.8 Red Blood Count 3.33 10^6/uL Low 4.0-5.4 Hemoglobin 10.1 g/dL Low 12.0-16.0 Hematocrit 31 % Low 35-47 Mean Corpuscular Volume 94 fL 80-97 Mean Corpuscular Hemoglobin 30 pg 27-31 Mean Corpuscular HGB Conc 32 g/dL 31-36 Red Cell Distribution Width 14 % 10.5-15 Platelet Count 376 10^3/uL 150-450 Mean Platelet Volume 7 um3 Low 7.4-10.4 Abs Neutrophils 4.8 10^3/uL 1.5-7.7 Abs Lymphocytes 0.8 10^3/uL Low 1.0-4.8 Abs Monocytes 0.6 10^3/uL 0-0.8 Abs Eosinophils 0.3 10^3/uL 0-0.6 Abs Basophils 0 10^3/uL 0-0.2 Abs Nucleated RBC 0 10^3/uL Granulocyte % 73.2 % 38-83 Lymphocyte % 12.0 % Low 25-47 Monocyte % 9.4 % High 1-9 Eosinophil % 4.7 % 0-6 Basophil % 0.7 % 0-2 Nucleated Red Blood Cells % 0 Urine Culture And Sensitivities 03/08/2017 Urine Culture SEE RESULT BELOW 18 Urinalysis Profile 03/08/2017 Urine Color Yellow Urine Appearance Cloudy Urine Specific [place] 1.010 1.010-1.030 Urine pH 5.0 5-9 Urine Urobilinogen Negative Negative Urine Ketones Negative Negative Urine Protein Negative Negative Urine Leukocytes 1+ Negative Urine Blood 1+ Negative Urine Nitrite Negative Negative Urine Bilirubin Negative Negative Urine Glucose Negative Negative Urine White Blood Cell 1+(6-10/hpf) Absent Urine Red Blood Cell Trace(0-2/hpf) Absent Urine Bacteria 1+ Absent Urine Squamous Epithelial Cell Present Absent CBC Auto Diff 03/08/2017 White Blood Count 15.3 10^3/uL High 3.5-10.8 Red Blood Count 3.65 10^6/uL Low 4.0-5.4 Hemoglobin 11.1 g/dL Low 12.0-16.0 Hematocrit 34 % Low 35-47 Mean Corpuscular Volume 94 fL 80-97 Mean Corpuscular Hemoglobin 30 pg 27-31 Mean Corpuscular HGB Conc 32 g/dL 31-36 Red Cell Distribution Width 14 % 10.5-15 Platelet Count 172 10^3/uL 150-450 Mean Platelet Volume 8 um3 7.4-10.4 Abs Neutrophils 12.7 10^3/uL High 1.5-7.7 Abs Lymphocytes 0.9 10^3/uL Low 1.0-4.8 Abs Monocytes 1.5 10^3/uL High 0-0.8 Abs Eosinophils 0.2 10^3/uL 0-0.6 Abs Basophils 0.1 10^3/uL 0-0.2 Abs Nucleated RBC 0.01 10^3/uL Granulocyte % 82.8 % 38-83 Lymphocyte % 5.6 % Low 25-47 Monocyte % 9.7 % High 1-9 Eosinophil % 1.5 % 0-6 Basophil % 0.4 % 0-2 Nucleated Red Blood Cells % 0 Laboratory test finding 03/08/2017 Lipase 11 U/L 11.0-82.0 C Reactive Protein 208.47 mg/L High < 5.00 19 Lactic Acid 0.7 mmol/L 0.5-2.0 20 Comp Metabolic Panel 03/08/2017 Sodium 135 mmol/L 133-145 Potassium 4.3 mmol/L 3.5-5.0 Chloride 108 mmol/L 101-111 Co2 Carbon Dioxide 18 mmol/L Low 22-32 Anion Gap 9 mmol/L 2-11 Glucose 153 mg/dL High 70-100 Blood Urea Nitrogen 49 mg/dL High 6-24 Creatinine 2.23 mg/dL High 0.51-0.95 BUN/Creatinine Ratio 22.0 High 8-20 Calcium 8.7 mg/dL 8.6-10.3 Total Protein 6.2 g/dL Low 6.4-8.9 Albumin 3.1 g/dL Low 3.2-5.2 Globulin 3.1 g/dL 2-4 Albumin/Globulin Ratio 1.0 1-3 Total Bilirubin 0.50 mg/dL 0.2-1.0 Alkaline Phosphatase 52 U/L 34-104 Alt 13 U/L 7-52 Ast 13 U/L 13-39 Egfr Non- 20.8 >60 Egfr 26.8 >60 21 Laboratory test finding 01/17/2015 B-Type Natriuretic 228 pg/mL High 22 Peptide BNP Basic Metabolic Panel 01/17/2015 Sodium 141 mmol/L 133-145 Potassium 4.0 mmol/L 3.5-5.0 Chloride 112 mmol/L High 101-111 Co2 Carbon Dioxide 24 mmol/L 22-32 Anion Gap 5 mmol/L 2-11 Glucose 124 mg/dL High 70-100 Blood Urea Nitrogen 26 mg/dL High 6-24 Creatinine 1.33 mg/dL High 0.51-0.95 BUN/Creatinine Ratio 19.5 8-20 Calcium 8.6 mg/dL 8.6-10.3 Egfr Non- 38.0 >60 Egfr 48.9 >60 23 1 Normal Range 180 to 914 Indeterminate Range 145 to 180 Deficient Range <145 2 Because ethnic data is not always readily available, this report includes an eGFR for both -Americans and non- Americans. The National Kidney Disease Education Program (NKDEP) does not endorse the use of the MDRD equation for patients that are not between the ages of 18 and 70, are , have extremes of body size, muscle mass, or nutritional status, or are non- or non-. According to the National Kidney Foundation, irrespective of diagnosis, the stage of the disease is based on the level of kidney function: Stage Description GFR(mL/min/1.73 m(2)) 1 Kidney damage with normal or decreased GFR 90 2 Kidney damage with mild decrease in GFR 60-89 3 Moderate decrease in GFR 30-59 4 Severe decrease in GFR 15-29 5 Kidney failure <15 (or dialysis) 3 Acute inflammation: >10.00 4 FASTING 10 HOUR 5 Performed by [facility], [address] [place] [address] [email or web address] MD - Lab. Director Test Performed by: [facility] [address] [place] [address] 6 [id number] SEE RESULT BELOW Name: ANALILIA GRANDA : [address]: Edi Sheikh MD Acct: [id number] Unit: [id number] AGE: 87 Location: [facility] Re10/07/17 SEX: F Status: REG REF SPEC: [id number] PONCE: 10/07/17-0952 [facility] DR: Edi Sheikh MD REQ: [id number] RECD: 10/07/17 STATUS: JANET OMALLEY DR: Aman Berry MD _ ORDERED: LEVEL 4 COMMENTS: [id number] FINAL DIAGNOSIS Skin, left leg, excision: -- Invasive squamous cell carcinoma, well-differentiated. -- All margins are clear. PRE-OPERATIVE DIAGNOSIS Basal cell carcinoma/squamous cell carcinoma; suture del cid 12 o?clock proximal apex margin GROSS DESCRIPTION The specimen is received in formalin labeled, Excision Nonhealing Lesion Left Leg, Suture Del Cid 12:00 Proximal [place] Margin, and consists of a 4.3 x 1.4 cm mottled marquis- pink hairbearing focally scaly skin fragment excised to maximum depth of 0.5 cm with a central 1.1 x 0.9 x 0.2 cm marquis nodule. There is a suture attached to one long axis which designates the 12:00 proximal apex margin. The specimen is inked as follows: 9:00 half black, 3:00 half blue and 12:00 tip green, serially sectioned from 12:00 to 6:00 and entirely submitted in cassettes A through E to include ellipse ends in cassette A. Signed (signature on file) Anais Merino MD 0949 END OF REPORT * ML=Testing performed at Main Lab DEPARTMENT OF PATHOLOGY, [address] [place] [address] Jozef De Oliveira M.D. Director [facility] # [id number] 8 SEE RESULT BELOW Name: ANALILIA GRANDA : [address]: Edi Sheikh MD Acct: [id number] Unit: [id number] AGE: 86 Location: [place] Re08/16/17 SEX: F Status: DEP SDC SPEC: [id number] PONCE: 08/16/17 [facility] [address]: Edi Sheikh MD REQ: [id number] RECD: 08/16/17 STATUS: JANET OMALLEY DR: Aman Berry MD _ ORDERED: FS 1ST PER SPEC, FS ADD PER SPEC/3, LEVEL 4 FINAL DIAGNOSIS Skin, left cheek, excision: -- Scar and residual actinic change. -- No evidence of residual invasive squamous cell carcinoma. -- Incidental basal cell carcinoma, superficial and nodular type. -- All margins are clear. COMMENT: The previous lesion at this site ([id number]) has been completely excised. PATHOLOGY SURGICAL CONSULT Frozen section (FS)/Touch Prep (TP)/Gross Consult (GC) FS) Skin, left cheek orbital, excision: a. Actinic change of prior biopsy site. (DS) b. Incidental focus of basal cell carcinoma. (DS) c. Margins clear. (AMINTA) Dr Sheikh notified on 08/16/17 at 1750. PRE-OPERATIVE DIAGNOSIS Squamous cell carcinoma left cheek, suture del cid 12 o?clock superior margin GROSS DESCRIPTION The specimen is received fresh labeled, Excision Squamous Cell Carcinoma Left Cheek, and consists of a 2.6 x 2.3 cm marquis-pink ovoid wrinkled portion of skin excised to a maximum depth of 0.6 cm. There is an attached suture which as per the accompanying requisition designates the 12:00 superior margin. The specimen is inked as follows: 9: 00 half black, CONTINUED ON NEXT PAGE * ML=Testing performed at Main Lab DEPARTMENT OF PATHOLOGY, [address] [place] [address] Jozef De Oliveira M.D. Director [facility] # [id number] RUN DATE: 08/17/17 [facility] LAB LIVE PAGE 2 Patient: ANALILIA GRANDA [id number] (Continued) GROSS DESCRIPTION (Continued) GROSS DESCRIPTION (Continued) 3:00 half blue and 12:00 end green, serially sectioned from 12:00 to 6:00 and entirely submitted for frozen section microscopy. The frozen section residue is submitted in cassettes FSA through FSD to include ends in cassette FSA. Signed (signature on file) Anais Merino MD 1350 END OF REPORT * ML=Testing performed at Main Lab DEPARTMENT OF PATHOLOGY, [address] [place] [address] Jozef De Oliveira M.D. Director [facility] # [id number] 9 Desirable <150 Borderline high 150-199 High 200-499 Very High >500 10 Desirable <200 Borderline high 200-239 High >239 11 Low <40 Desirable: 40-60 High: >60 12 Desirable: <100 mg/dL Near Optimal: 100-129 mg/dL Borderline High: 130-159 mg/dL High: 160-189 mg/dL Very High: >189 mg/dL 13 FASTING Copy Result to: STACI URENA ([id number]) 14 FASTING Copy Result to: STACI URENA ([id number]) 15 Acute inflammation: >10.00 16 Because ethnic data is not always readily available, this report includes an eGFR for both -Americans and non- Americans. The National Kidney Disease Education Program (NKDEP) does not endorse the use of the MDRD equation for patients that are not between the ages of 18 and 70, are , have extremes of body size, muscle mass, or nutritional status, or are non- or non-. According to the National Kidney Foundation, irrespective of diagnosis, the stage of the disease is based on the level of kidney function: Stage Description GFR(mL/min/1.73 m(2)) 1 Kidney damage with normal or decreased GFR 90 2 Kidney damage with mild decrease in GFR 60-89 3 Moderate decrease in GFR 30-59 4 Severe decrease in GFR 15-29 5 Kidney failure <15 (or dialysis) 17 Acute inflammation: >10.00 18 SEE RESULT BELOW Name: ANALILIA GRANDA : [address]: To Solano MD Acct: [id number] Unit: [id number] AGE: 86 Location: [place] [id number] Re03/09/17 Dis: 03/09/17 SEX: F Status: DIS Ni SPEC: [id number] PONCE: 03/09/17-[address]: Willy Felder MD REQ: [id number] RECD: 03/09/17 STATUS: ELEAZAR OMALLEY DR: Aman Urena MD _ SOURCE: URINE SPDESC: ORDERED: Urine Culture Procedure Result Reported Site Urine Culture Final 03/10/17- 1039 ML No growth of clinically significant organisms * ML - MAIN LAB (PSC1) . END OF REPORT * ML=Testing performed at Main Lab DEPARTMENT OF PATHOLOGY, [address] [place] [address] Jozef De Oliveira M.D. Director [facility] # [id number] 19 Acute inflammation: >10.00 20 [facility] Severe Sepsis and Septic Shock Management Bundle Measure requires all lactic acids initially measuring >2.0 mmol/L be repeated. 21 Because ethnic data is not always readily available, this report includes an eGFR for both -Americans and non- Americans. The National Kidney Disease Education Program (NKDEP) does not endorse the use of the MDRD equation for patients that are not between the ages of 18 and 70, are , have extremes of body size, muscle mass, or nutritional status, or are non- or non-. According to the National Kidney Foundation, irrespective of diagnosis, the stage of the disease is based on the level of kidney function: Stage Description GFR(mL/min/1.73 m(2)) 1 Kidney damage with normal or decreased GFR 90 2 Kidney damage with mild decrease in GFR 60-89 3 Moderate decrease in GFR 30-59 4 Severe decrease in GFR 15-29 5 Kidney failure <15 (or dialysis) 22 >100 to <200 pg/mL: likely compensated congestive heart failure (CHF) 200 to 400 pg/mL: likely moderate CHF >400 pg/mL: likely moderate to severe CHF 23 Because ethnic data is not always readily available, this report includes an eGFR for both -Americans and non- Americans. The National Kidney Disease Education Program (NKDEP) does not endorse the use of the MDRD equation for patients that are not between the ages of 18 and 70, are , have extremes of body size, muscle mass, or nutritional status, or are non- or non-. According to the National Kidney Foundation, irrespective of diagnosis, the stage of the disease is based on the level of kidney function: Stage Description GFR(mL/min/1.73 m(2)) 1 Kidney damage with normal or decreased GFR 90 2 Kidney damage with mild decrease in GFR 60-89 3 Moderate decrease in GFR 30-59 4 Severe decrease in GFR 15-29 5 Kidney failure <15 (or dialysis) Procedures Date CPT Code Description Status 04/22/2017 Mammogram Completed 04/08/2017 81374 EKG Tracing & Interpretation Completed 04/19/2016 Mammogram Completed 07/14/2015 23518 EKG Tracing & Interpretation Completed 01/13/2015 36586 ECHO Transthoracic, Real-Time 2D With Doppler And Color Completed Flow 01/03/2015 65298 EKG Tracing & Interpretation Completed 02/06/2013 11556 ECHO Transthorasic Realtime 2D W Doppler & Color Flow Completed Hosp 02/06/2013 49632 EKG, Interpretation Only Completed 02/05/2013 Colonoscopy Completed 05/18/2007 Colonoscopy Completed Encounters Type Date Location Provider CPT E/M Dx Office Visit 02/01/2018 [facility] Internal Aman Urena, [address] Z01.810 11:40a Medicine - Pavan Mir M.D.,FACP H02.105 I25.10 I10 Office Visit 11/17/2017 11:00a [facility] [place] [address] J20.9 Office Visit 09/12/2017 2:10p [facility] [place] [address] [address] Office Visit 04/08/2017 1:00p [facility] Dagmar Dillard M.D. 34101 I25.10 [facility] I51.81 I10 E78.5 Office Visit 03/23/2017 11:50a [facility] Internal Aman Urena, [address], M.D.,FACP Z87.19 N18.2 R22.33 Office Visit 03/09/2017 10:14a [facility], To Russ, 66660 R10.31 Hospitalists Vilma Z87.19 N17.0 N18.3 Office Visit 03/12/2016 8:40a [facility] Jorge Dillard M.D. 66784 I25.10 Hebrew Cantor AT [facility] I10 E78.5 Office Visit 07/14/2015 11:00a [facility] Jorge Dillard M.D. 47000 I25.10 Hebrew Cantor I25.2 I10 E78.5 Office Visit 01/28/2015 1:15p [facility] Jorge Dillard M.D. 93510 425.9 [facility] 401.9 424.2 414.01 782.3 Office Visit 01/03/2015 2:00p [facility] Jorge Dillard M.D. 02648 401.9 [facility] 414.01 459.81 782.3 425.9 Office Visit 02/13/2013 12:29p [facility], Kell Carlson, 55907 008.45 Hospitalists D.O. 789.07 401.9 493.10 Office Visit 02/12/2013 12:29p [facility], Kell Carlson, 64312 008.45 Hospitalists D.O. 789.07 401.9 493.10 Office Visit 02/12/2013 10:41a [facility] Papito Diaz, 74840 008.45 Infectious Diseases Vilma 787.91 558.9 Office Visit 02/11/2013 12:29p [facility], Kell Carlson, 54546 008.45 Hospitalists D.O. 789.07 401.9 493.10 Office Visit 02/10/2013 12:28p [facility], Kell Carlson, 93758 008.45 Hospitalists D.O. 789.07 401.9 493.10 Office Visit 02/09/2013 12:28p [facility], Kell Carlson, 88764 008.45 Hospitalists D.O. 789.07 401.9 493.10 Office Visit 02/08/2013 12:27p [facility],[place] [address] 008.45 Hospitalists 789.07 401.9 491.20 Office Visit 02/07/2013 12:25p [facility] [address] 008.45 Hospitalists 789.07 560.9 401.9 Office Visit 02/06/2013 12:23p [facility],[place] [address] 562.11 Hospitalists 560.9 401.9 789.07 Office Visit 02/05/2013 12:23p [facility] Savannah Fleming, 25734 562.11 Assoc, Hospitalists Vilma 401.9 530.81 493.10 Plan of Care Future Appointment(s):03/20/2018 3:40 pm - Dagmar Dillard M.D. at [facility]06/21/2018 4:00 pm - Aman Urena M.D.,FACP at [facility] Medicine - [address]03/03/2018 - Vinnie Huerta M.D.R76.0 Raised antibody titerFollow up:Follow up as [id number] Primary osteoarthritis, unspecified handE53.8 Deficiency of other specified B group vitaminsNew Medication:B12 Fast Dissolve 5000 mcgD64.9 Anemia, unspecified
[2018-03-25] MEDS ORDERED: Nitroglycerin TAB 0.4 MG* 0.4 MG TAB SL ONE (23:21)
--- NOTE | 2018-03-25 23:25 | ED ---
HPI Chest Pain - HPI Summary HPI Summary: This is nina Hayden documenting for attending Dr. Willy Loco MD. The patient is an 87 y/o F presenting to [facility] c/o chest tightness with gradual onset in the last hour. She was visiting her here in the hospital when she noticed that her chest began to feel heavy. She doesn't think she has had pain like this before, but she has hx of cardiac arrest and angina. The pain radiates to her back. She denies numbness and pain in her legs. - History of Current Complaint Chief Complaint: EDChestPainROMI Time Seen by Provider: 03/25/18 22:55 Hx Obtained From: Patient Onset/Duration: Started Minutes Ago, Still Present Timing: Constant Initial Severity: Mild Current Severity: Mild Pain Intensity: 0 Pain Scale Used: 0-10 Numeric Chest Pain Location: Diffuse Chest Pain Radiates: Yes Chest Pain Radiates To:: Back Character: Heaviness Aggravating Factor(s): Nothing Alleviating Factor(s): Nothing Associated Signs and Symptoms: Negative: Numbness - Additional Pertinent History Primary Care Physician: [id number] - Allergy/Home Medications Allergies/Adverse Reactions: Allergies Allergy/AdvReac Type Severity Reaction Status Date / Time Iodinated Contrast- Oral and Allergy Intermediate Rash Verified 03/26/18 00:49 IV Dye iodine Allergy Intermediate Rash Verified 03/26/18 00:49 tramadol Allergy Unknown Verified 03/26/18 00:49 Reaction Details amoxicillin [From Augmentin] AdvReac Severe mouth sores Verified 03/26/18 00:24 clavulanic acid AdvReac Severe mouth sores Verified 03/26/18 00:24 [From Augmentin] sulfamethoxazole AdvReac Severe vomiting, Verified 03/26/18 00:24 [From Bactrim] nausea trimethoprim [From Bactrim] AdvReac Severe vomiting, Verified 03/26/18 00:24 nausea PMH/Surg Hx/FS Hx/Imm Hx Cardiovascular History: Reports: Hx Cardiac Arrest - 20 years ago, Hx Coronary Artery Disease, Hx Hypertension, Other Cardiovascular Problems/Disorders - hypercholesterolemia Denies: Hx Pacemaker/ICD Respiratory History: Reports: Hx Asthma, Hx Chronic Obstructive Pulmonary Disease (COPD), Hx Seasonal Allergies GI History: Reports: Hx Diverticulosis, Hx Gastroesophageal Reflux Disease - on meds, Other GI Disorders - diverticulitis HX of Musculoskeletal History: Reports: Hx Arthritis - RA,OSTEOARTHRITS BILAT HIPS Sensory History: Reports: Hx Cataracts - bilateral, Hx Contacts or Glasses - for reading, Hx Vision Problem Denies: Hx Hearing Aid Opthamlomology History: Reports: Hx Cataracts - bilateral, Hx Contacts or Glasses - for reading, Hx Vision Problem Psychiatric History: Denies: Hx Panic Disorder - Cancer History Hx Chemotherapy: No Hx Radiation Therapy: No - Surgical History Surgery Procedure, Year, and Place: tonsillectomy as a child. hysterectomy [facility]nia [facility]. left inguinal hernia repair. bilateral cataract extractions with IOL's. 06/2017 biopsy left cheek. 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 Hx Anesthesia Reactions: No Infectious Disease History: No Infectious Disease History: Reports: Hx Clostridium Difficile Denies: Traveled Outside the [place] in Last 30 Days - Family History Known Family History: Positive: Unknown - adopted - Social History Alcohol Use: Occasionally Substance Use Type: Reports: None Hx Tobacco Use: Yes Smoking Status (MU): Former Smoker Amount Used/How Often: 1/2 ppd for 40 years Review of Systems Positive: Chest Pain - radiates to back Negative: Numbness - in legs All Other Systems Reviewed And Are Negative: Yes Physical Exam - Summary Physical Exam Summary: Appearance: Well-appearing, Well-nourished, lying in bed comfortably Skin: Warm, dry, no obvious rash Eyes: sclera anicteric, no conjunctival pallor ENT: mucous membranes moist, pharynx appears normal Neck: Supple, nontender Respiratory: Clear to auscultation, no signs of respiratory distress, Cardiovascular: Normal S1, S2. No murmurs. Normal distal pulses in tibial and radial bilaterally. Abdomen: Soft, nontender, normal active bowel sounds present Musculoskeletal: Normal, Strength/ROM Intact Neurological: A&Ox3, awake and alert, mentation is normal, speech is fluent and appropriate Psychiatric: affect is normal, appears anxious, hyperventilating Triage Information Reviewed: Yes Vital Signs On Initial Exam: Initial Vitals Temp Pulse Resp BP Pulse Ox 98.1 F 80 18 175/102 98 03/25/18 22:53 03/25/18 22:53 03/25/18 22:53 03/25/18 22:53 03/25/18 22:53 Vital Signs Reviewed: Yes Diagnostics - Vital Signs Vital Signs Temp Pulse Resp BP Pulse Ox 03/25/18 22:53 98.1 F 80 18 175/102 98 - Laboratory Result Diagrams: 03/31/18 05:31 03/29/18 05:15 Lab Statement: Any lab studies that have been ordered have been reviewed, and results considered in the medical decision making process. - EKG 22:55 Cardiac Rate: NL - 80 BPM EKG Rhythm: Sinus Rhythm EKG Interpretation: Left axis deviation. P, QRS, T waves and intervals nml. No ischemic changes Chest Pain Course/Dx - Diagnoses Provider Diagnoses: Unstable angina - Provider Notifications Discussed Care Of Patient With: Jann Pretty Time Discussed With Above Provider: 22:30 Instructed by Provider To: Admit As Observation Discharge - Sign-Out/Discharge Documenting (check all that apply): Patient Departure - Pt will be admitted to [facility] [place]. - Discharge Plan Condition: Stable Disposition: ADMITTED TO [facility] - Billing Disposition and Condition Condition: STABLE Disposition: Admitted to [facility]
[2018-03-25 23:34] LABS: ABS Basophils 0.1 10^3/ul (0-0.2); ABS Eosinophils 0.7 10^3/ul (0-0.6); ABS Lymphocytes 1.2 10^3/ul (1.0-4.8); ABS Monocytes 0.9 10^3/ul (0-0.8); ABS Neutrophils 6.5 10^3/ul (1.5-7.7); ABS Nucleated RBC 0 10^3/ul; Eosinophil % 7.9 % (0-6); Hematocrit 36 % (35-47); Hemoglobin 11.9 g/dl (12.0-16.0); Lymphocyte % 12.8 % (25-47); Mean Corpuscular HGB Conc 33 g/dl (31-36); Mean Corpuscular Hemoglobin 30 pg (27-31); Mean Corpuscular Volume 90 fL (80-97); Mean Platelet Volume 6.8 um3 (7.4-10.4); Nucleated Red Blood Cells % 0; Platelet Count 229 10^3/ul (150-450); Red Blood Count 3.98 10^6/ul (4.00-5.40); Red Cell Distribution Width 14 % (10.5-15); White Blood Count 9.4 10^3/ul (3.5-10.8)
[2018-03-25 23:52] LABS: EGFR Non-African American 30.1 (>60)
[2018-03-26] MEDS ORDERED: Aspirin 81 mg CHEW TAB* 81 MG TAB.CHEW PO ONE (00:24)
[2018-03-26] MEDS ORDERED: Diazepam TAB(*) 5 MG PO ONE (00:36)
[2018-03-26] MEDS ORDERED: CMCS:Simvastatin TAB(NF) 10 MG TAB PO SCH (01:00)
[2018-03-26] MEDS: Morphine INJ* 2 MG/ML 1 ML SYRINGE (TWO MG - NEW SYRINGE VERSION) IV PRN ×2 (01:12→04:30)
--- NOTE | 2018-03-26 01:25 | HP ---
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 Shortly thereafter, nursing called me to their bedside as she was reporting 6/10 chest heaviness radiating into her neck & back associated with mild SOB & mild nausea , but without emesis, diaphoresis, palpitations, or light-headedness. Her vitals were stable. Her family was present and highly supportive. Everyone agreed it best to have her evaluated briefly in the ED to r/o STEMI & r/o dissection as best we were able while simultaneously expediting an observation admission back to her 's side. She conceded to the ED nurse her pain had been going on for 'a few hours' and her son reported he had thought it unusual she had to stop 3 times to rest while walking from the car to her 's room. ECG was negative for STEMI. 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 I advised her and her family that to my eye, no dissection was present within the limitations of a non-contrast study and that I did not recommend awaiting formal read in order to return her to her . She was given 0.4 SL nitro which relieved her nausea, had no effect on her mild SOB, decreased her pain from 6/10 to 5/10, and dropped her blood pressure from 138/ 101 to 86/61. She was expeditiously brought back to her 's side prior to lab work being returned which ultimately showed a troponin of 0.38 indicating a NSTEMI underway. At that time her pain was down to a 4/10 and her SOB had resolved. She was given chewable aspirin 324mg, no beta fransisca 2nd hypotension , and heparin GTT & morphine PRN ordered. Nela Escamilla MD cardiology was consulted via phone, recommending the addition of benzodiazepine for more aggressive anxiolysis and agreeing her wishes in this difficult and complicated situation are preeminent. I returned to her room and requested to speak to her and her only which the family allowed. She is very sharp mentally and expressed understanding of her situation. She stated she would not want resuscitation nor intubation, that she was ready to 'go with' her . Additionally, she was not interested in any therapy which would take her from Marcio's side, including cardiac catheterization. A MOLST to this effect was then filled out. Her family was gathered and informed of the findings as well as of her wishes. An extensive discussion in multiple parts (totaling ~90minutes) was had involving the various options Mrs Guerrero had as well as my opinion that for her to leave her 's side at this time could very well worsen her stress and outcome. They were informed of the possibility she would not survive this event despite maximal medical therapy, but that given this unique set of circumstances even should she opt for cardiac catheterization I would not expect it to substantially enhance her chance of surviving. They expressed understanding and were courteously requested to remain supportive of their mother's decisions so as to not further exacerbate stress. [employer] Pow[employer] Supervisor services were declined. 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 Montelukast Sodium TAB* [Singulair 10 MG TAB*] 10 mg PO QPM 02/05/13 Omeprazole CAP* [Prilosec CAP* 20 MG] 20 mg PO QAM 02/05/13 Tiotropium CAP.INH* [Spiriva CAP.INH*] 1 puff INH QAM 02/05/13 Aspirin EC TAB* [Ecotrin EC Low Dose 81 MG*] 81 mg PO QAM 05/12/15 Carvedilol TAB* [Coreg TAB*] 6.25 mg PO BID 05/12/15 Fluticasone-Salmeterol 250-50* [Advair Diskus 250-50*] 1 puff INH BID 05/12/15 Spironolactone TAB* 25 mg PO QAM 05/12/15 Valsartan/HCTZ 160/12.5(NF) [Diovan Hct 160/12.5(NF)] 1 tab PO QAM 05/12/15 Bifidobacterium Infantis [Align] 4 mg PO QAM 03/09/17 Polyethylene Glycol 3350* [Miralax*] 17 gm PO EVERY OTHER DAY 03/09/17 Simvastatin TAB(NF) [Zocor 10 MG (NF)] 10 mg PO QPM 03/09/17 Calcium Polycarbophil [Fiber Tabs] 2 cap PO BID 01/31/18 Allergies Iodinated Contrast- Oral and IV Dye Allergy (Intermediate, Verified 03/26/18 00: 49) Rash iodine Allergy (Intermediate, Verified 03/26/18 00:49) Rash tramadol Allergy (Verified 03/26/18 00:49) Unknown Reaction Details amoxicillin [From Augmentin] Adverse Reaction (Severe, Verified 03/26/18 00:24) mouth sores clavulanic acid [From Augmentin] Adverse Reaction (Severe, Verified 03/26/18 00: 24) mouth sores sulfamethoxazole [From Bactrim] Adverse Reaction (Severe, Verified 03/26/18 00: 24) vomiting, nausea trimethoprim [From Bactrim] Adverse Reaction (Severe, Verified 03/26/18 00:24) vomiting, nausea PSurgHx OU cataract extractions tonsillectomy umbilical hernia repair appendectomy R inguinal hernia repair hysterectomy SocHx: former smoker quit ~8years ago, denies alcohol & recreational drugs; , living alone with her in a jail but who is currently sharing her room as a comfort-only patient; DNR/I code status FamHx: unknown as she is adopted ROS: as above, otherwise reviewed and all were negative vitals: Vital Signs Temp 36.7 C 03/26/18 00:08 Pulse 77 03/26/18 00:08 Resp 18 03/26/18 02:08 BP 91/49 03/26/18 00:08 Pulse Ox 98 03/26/18 00:08 Intake & Output 03/25/18 03/25/18 03/26/18 11:59 23:59 11:59 Weight 48.988 kg 48.353 kg Constitutional: NAD, normally developed, well-nourished venerable white female HEENM: atraumatic; sclera/conjunctiva: anicteric/clear; hearing: clinically intact; oropharynx: clear, mucosa moist Neck: soft tissue: non-tender; thyroid: normal Pulmonary: clear to auscultation bilaterally, good aeration, no accessory muscle use CV: RR/RR, normal S1S2, no carotid bruit, no jugular venous distention, 2+ B DP/ PT, no edema Abdominal: soft, non-distended, non-tender, no rebound/guarding/rigidity, normoactive bowel sounds, no hepatosplenomegaly or masses, no costovertebral angle tenderness Musculoskeletal: general: grossly intact, non-tender Integumental: normal appearance and texture of exposed skin Psychiatric orientation: AA&O to PPS affect: calm mood: exceedingly pleasant eye contact: good content: reliable memory: intact responses: timely insight: excellent Testing: Lab Results 03/25/18 03/25/18 03/26/18 Range/Units 23:20 23:20 00:00 WBC 9.4 (3.5-10.8) 10^3/ul RBC 3.98 L (4.00-5.40) 10^6/ul Hgb 11.9 L (12.0-16.0) g/dl Hct 36 (35-47) % MCV 90 (80-97) fL MCH 30 (27-31) pg MCHC 33 (31-36) g/dl RDW 14 (10.5-15) % Plt Count 229 (150-450) 10^3/ul MPV 6.8 L (7.4-10.4) um3 Neut % (Auto) 69.0 (38-83) % Lymph % (Auto) 12.8 L (25-47) % Sebastian % (Auto) 9.6 H (0-7) % Eos % (Auto) 7.9 H (0-6) % Baso % (Auto) 0.7 (0-2) % Absolute Neuts (auto) 6.5 (1.5-7.7) 10^3/ul Absolute Lymphs (auto) 1.2 (1.0-4.8) 10^3/ul Absolute Monos (auto) 0.9 H (0-0.8) 10^3/ul Absolute Eos (auto) 0.7 H (0-0.6) 10^3/ul Absolute Basos (auto) 0.1 (0-0.2) 10^3/ul Absolute Nucleated RBC 0 10^3/ul Nucleated RBC % 0 APTT 30.4 (26.0-36.3) seconds Sodium 138 (135-145) mmol/L Potassium 5.2 H (3.5-5.0) mmol/L Chloride 110 (101-111) mmol/L Carbon Dioxide 20 L (22-32) mmol/L Anion Gap 8 (2-11) mmol/L BUN 39 H (6-24) mg/dL Creatinine 1.62 H (0.51-0.95) mg/dL Est GFR ( Amer) 36.4 (>60) Est GFR (Non-Af Amer) 30.1 (>60) BUN/Creatinine Ratio 24.1 H (8-20) Glucose 120 H (70-100) mg/dL Calcium 8.9 (8.6-10.3) mg/dL Total Bilirubin 0.40 (0.2-1.0) mg/dL AST 13 (13-39) U/L ALT 7 (7-52) U/L Alkaline Phosphatase 85 (34-104) U/L Troponin I 0.38 H* (<0.04) ng/mL Total Protein 6.8 (6.4-8.9) g/dL Albumin 3.9 (3.2-5.2) g/dL Globulin 2.9 (2-4) g/dL Albumin/Globulin Ratio 1.3 (1-3) ECG, personally reviewed: NSR rate 80, no ischemia CT C/A/P WO, personally reviewed: IMPRESSION: 1. No aortic dissection although evaluation markedly degraded without intravenous contrast. 2. Additional incidental findings as described. 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 : avoid nephrotoxic agents HTN : hold anti-hypertensives in setting of hypotension HLD : simvastatin given tonight : switch to high dose atorvastatin tomorrow asthma : continue fluticasone/salmeterol, & tiotropium GERD : continue omeprazole Admission Rational: inpatient for NSTEMI as without the above interventions the risk of impending adverse outcome is unacceptably high; inappropriate for the outpatient setting DVTp: heparin GTT Code Status: DNR/I, no aggressive interventions HCP: Marcio britt Critical Care time: 200minutes with >50% spent at the bedside obtaining a history, performing the examination, advising of diagnosis & treatment options along with risks/benefits/reasoning; remainder spent discussing with ER MD and consulting with cardiology by phone, reviewing labs and radiology exams, and documentation
[2018-03-26] MEDS: Montelukast Sodium TAB* 10 MG PO SCH ×2 (01:57→16:13)
[2018-03-26] MEDS: Mometasone/Formoter 200/5 MDI INH SCH ×3 (01:59→20:30)
[2018-03-26] MEDS: Heparin DRIP 25,000 UNITS(*) 25,000 UNITS/500 ML BAG IVPB SCH (02:01)
[2018-03-26] MEDS: Heparin VIAL(*) 5000 UNITS/ML VIAL (FIVE THOUSAND) IV PRN ×2 (02:01→16:13)
[2018-03-26] MEDS ORDERED: NS 0.9% 500 ML* 500 ML IV ONE (02:45)
[2018-03-26] MEDS ORDERED: NS 0.45% 1000 ML BAG* 1,000 ML IV SCH (03:00)
[2018-03-26] MEDS ORDERED: NS 0.9% 1000 ML* 1,000 ML IV SCH (04:15)
[2018-03-26] MEDS: LORazepam INJ* 2 MG/ML 1 ML VIAL IV PRN ×2 (04:30→12:20)
--- NOTE | 2018-03-26 07:22 | RAD ---
INDICATION: Chest pain. Contrast allergy. Hypertension. COMPARISON: CT abdomen pelvis March 08, 2017 TECHNIQUE: Axial source images were obtained from the thoracic inlet to the symphysis pubis. Neither oral intravenous contrast was given limiting this examination. Coronal and sagittal reconstructed images were acquired. CHEST FINDINGS: Neck/thyroid: The visualized neck to include the thyroid appear normal. Chest wall: There are no acute abnormalities of the bony thorax or chest wall. There is moderate kyphosis. There is no supraclavicular, infraclavicular, or axillary lymphadenopathy. Lungs : There is mild interstitial infiltrate in the right middle lobe. There are small areas of peripheral parenchymal nodularity appearing unchanged most consistent with a benign process. There are underlying emphysematous changes. There are no endobronchial lesions. Cardiomediastinal structures: The heart is normal in size. There is no pericardial effusion. There is no evidence of aortic aneurysm or dissection. The pulmonary vessels appear normal. There is no mediastinal or hilar adenopathy. The esophagus appears normal. Pleura : There are no pleural-based masses or effusions. ABDOMINAL/PELVIC FINDINGS: Liver: Noncontrast CT appearance of the liver is unremarkable. Gallbladder: There are no calcified gallstones. There is no evidence of wall thickening or pericholecystic fluid. Spleen: There are no splenic abnormality is on noncontrast evaluation. Pancreas: Limited evaluation pancreas demonstrate pancreatic atrophy but no focal mass. There is a small pancreatic calcification. Adrenal glands: There is no evidence of adrenal mass. Kidneys: There are multiple, bilateral, renal cysts. There are tiny renal calcifications which may be vascular or could represent nephrolithiasis. There is no obstruction. Adenopathy: There is no gross adenopathy. Fluid collections: There are no significant free or localized fluid collections. Vessels:There are atherosclerotic changes of the aorta. There is vascular ectasia with mild fusiform ectasia of the infrarenal abdominal aorta. There is a small ulceration of the anterior wall of the infrarenal abdominal aorta at the L4. The appearance unchanged The IVC is unremarkable GI tract: Limited imaging without oral contrast. Scattered diverticula. No obstruction. Pelvic organs: Hysterectomy. No adnexal mass Bladder: There are no bladder masses. Abdominal and pelvic soft tissues: The extraperitoneal abdominal and pelvic soft tissues appear normal.. Osseous structures: Spondylitic change of the lumbar spine. IMPRESSION: 1. Chronic lung findings. 2. Noncontrast imaging demonstrates no evidence of displaced intimal calcifications to suggest dissection. 3. Small ulcerated lesion infrarenal abdominal aorta appearing unchanged. 4. Bilateral renal cysts. Small bilateral renal calcifications.
[2018-03-26] MEDS ORDERED: Omeprazole CAP* 20 MG PO SCH (07:30)
[2018-03-26] MEDS ORDERED: Spiriva Inhaler DEVICE* 1 EACH DEVICE INH ONE (09:00)
[2018-03-26] MEDS ORDERED: Carvedilol TAB* 6.25 MG PO SCH (09:00)
[2018-03-26] MEDS ORDERED: Spironolactone TAB* 25 MG PO SCH (09:00)
[2018-03-26] MEDS ORDERED: Hydrochlorothiazide TAB* 25 MG PO SCH (09:00)
[2018-03-26] MEDS ORDERED: Valsartan TAB* 160 MG PO SCH (09:00)
[2018-03-26] MEDS: NS 0.9% 1000 ML* 1,000 ML IV SCH ×2 (09:21→16:13)
[2018-03-26] MEDS: Aspirin EC TAB* 81 MG TAB.EC PO SCH (09:46)
[2018-03-26] MEDS: Tiotropium CAP.INH* CAP.INH/18 MCG (USE ORDER SET !) INH SCH (09:50)
[2018-03-26] MEDS: Polyethylene Glycol 3350* 17 GM PACKET PO SCH (09:51)
[2018-03-26] MEDS ORDERED: NS 0.9% 500 ML* 500 ML IV SCH (11:00)
[2018-03-26] MEDS: Carvedilol TAB* 3.125 MG PO SCH ×2 (13:45→20:08)
--- NOTE | 2018-03-26 14:24 | CONS ---
Amended report to enter date of consultation. CC: Dr. Aman James; Dr. Dillard CARDIOLOGY CONSULTATION: DATE OF CONSULT: 03/26/2018. PATIENT OF: Dr. Aman James and Dr. Dillard. REASON FOR EVALUATION: Non-ST elevation MO. HISTORY OF PRESENT ILLNESS: This is a very pleasant 87-year-old woman, who has a history of mild coronary disease, Takotsubo syndrome, renal insufficiency, hypertension, and hyperlipidemia, who has been in her usual state of health, but is now with seemingly end stages of her 's terminal illness. He was admitted and is in the process of dying. She went to visit him yesterday afternoon, was having some chest pain on and off yesterday afternoon, which became more severe last night. She initially declined treatment to leave the bedside, but was convinced to go to the emergency room. She had a CT scan without contrast due to renal insufficiency, which showed an obvious dissection. She was given nitro, but became hypotensive into the 80s. She came back up to the room and was given IV heparin as well as some benzodiazepines with some improvement in her symptoms. She has continued to have chest pain, which is now 6/10. No associated diaphoresis or gas or sour taste. No change with position or inspiration. No orthopnea. No PND. She said normally she takes care of her house, where she lives with her . She goes up and down stairs without shortness of breath. She has had no palpitation, syncope, or near syncope. She has had some chronic recurrent GI symptoms, but no problems now. No weight loss. No fevers, chills, or sweats. No bleeding problems. She is currently in a bed next to her , who is unresponsive, and her 3 children are in attendance. Her last echocardiogram from December of 2014 revealed an EF of 50% to 55%, mild right atrial enlargement, mild left atrial enlargement, mildly dilated RV with normal function, trace MR, moderate TR, PA pressure of 29. Her cath report from October of 2014 revealed right dominant artery, diffuse mild luminal irregularities with localized 50% in the mid LAD, EF of 40% with apical aneurysm , akinesis consistent with Takotsubo, mildly elevated aortic pressure. PAST MEDICAL HISTORY: Includes coronary artery disease, a reported MO in 1984, inferior wall; however, her son and daughter tell me that they do not think any catheterization or testing was done at that time. They recall in October of 2014 , she was hospitalized in [place], had a cath, which revealed apical ballooning , a troponin of 2, and [id number] coronary disease, it was felt to be Takotsubo syndrome; hyperlipidemia; hypertension; asthma; diverticulosis in 2012 ; edema; venous insufficiency evaluated by Dr. Price; Caesar diff colitis in 2013, she is followed by Dr. Fernandes. She has a history of abdominal aortic aneurysm listed as 2.4 cm, although the date of evaluation is unknown. PAST SURGICAL HISTORY: Her surgical history includes blepharoplasty recently; tonsillectomy; hysterectomy in 1966; appendectomy in 1965; hernia repair, inguinal and umbilical. MEDICATIONS: As outpatient include: 1. Simvastatin 10. 2. MiraLAX. 3. ProAir. 4. Estrace. 5. B12. 6. Probiotic 1 a day. 7. Fiber-Caps. 8. Omeprazole 20 mg a day. 9. Singulair one a day. 10. Advair Diskus. 11. Spiriva. 12. Carvedilol 6.25 b.i.d. 13. Aspirin 81 mg a day. 14. Aldactone 25 half a tablet every day. 15. Diovan hydrochlorothiazide 160/12.5. Her medicines as an inpatient include: 1. Aspirin 81 mg. 2. Lipitor 80. 3. IV heparin. 4. Lorazepam 1 mg q.3 p.r.n. 5. Morphine 1 mg q.12 p.r.n. 6. Omeprazole 20 mg daily. 7. MiraLAX 17 g every other day. ALLERGIES: Include LEVAQUIN and IODINATED CONTRAST DYE with a rash in 2014; AUGMENTIN, sore mouth in October of 2017; BACTRIM, November of 2017; TRAMADOL, February of 2018. SOCIAL HISTORY: She is a former smoker, quit in 2009. She reports rare alcohol use. Half a cup of coffee a day. She has been for 67 years and her is unresponsive in the next bed. She has 3 children, who are in attendance, 2 sons and a daughter. 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 REVIEW OF SYSTEMS: Review of systems x10 was negative except as above. PHYSICAL EXAM: She is a well-developed, well-nourished female, somewhat emotional and teary eyed at times, but fully alert and oriented. Blood pressure 87/57, blood pressure back on 03/25/18 at 2253 was 175/102; O2 sats 98% . No significant JVD. Carotids are 2+. No bruits. Extraocular muscles intact. Sclerae anicteric. Cardiac Exam: S1 and S2, no clear murmurs, gallops , or rubs. Chest was clear, increased resonance to percussion, decreased breath sounds, and somewhat prolonged expiratory phase. Abdominal Exam: Bowel sounds present, nontender. No hepatosplenomegaly. Femoral pulses are intact without bruits. Distal pulses diminished. Motor strength is 5/5 bilaterally. Deep tendon reflexes are 2/4. There were chronic venous stasis changes, but no edema. Skin turgor poor. DIAGNOSTIC STUDIES/LAB DATA: Labs include mild anemia, hemoglobin of 11.9, which she reports as chronic. Sodium 138, potassium of 5.2, BUN of 39. Troponin initially 0.38, then 1.45 at 2:58 a.m., 1.50 at 7:12. CT from last night, chronic lung findings, no evidence of displaced intimal calcification to suggest dissection, small ulcerated lesion, infrarenal abdominal aorta no change, bilateral renal cysts, small bilateral renal calcifications, mild interstitial infiltrate in the right middle lobe, emphysematous changes. An EKG from 03/25/18 revealed sinus rhythm with APCs, left anterior hemiblock, poor R-wave progression and lateral ST-T changes. The lateral ST-T changes are new compared to 03/22/18. A repeat EKG from today at 9 o'clock revealed sinus rhythm, left anterior hemiblock, poor R wave progression with improvement in the ST-T changes in I and aVL, and more pronounced T-wave flattening in the anterior leads. IMPRESSION AND PLAN: My impression is that Ms. Guerrero has multiple medical issues including chronic obstructive pulmonary disease, hypertension, hyperlipidemia, mild coronary disease, and a history of Takotsubo syndrome, now with a non-ST elevation myocardial infarction, and EKG changes, troponin elevations in the setting of extreme emotional stress. She has ongoing pain and low blood pressures. Therapeutic options are somewhat limited based on her wishes to not have any aggressive interventions. She understands the potential for morbidity, mortality, and from the situation. However, given her advanced age and comorbidities, and her primary goal of attending to her during the endstage of his illness, she wants to remain next to her . I did explain to her and her family that it is unclear whether this is a thrombotic infarct or another episode of Takotsubo. I suggested that we continue a low-dose beta fransisca to avoid beta-fransisca withdrawal and unblock catecholamine discharge and consider using anxiolytics to try to decrease the emotional stress and catecholamine surge. We would continue her statin. We would continue aspirin and heparin, but watch for anemia. Reduce nitrate as tolerated. We will consider bolus of fluid to try to improve her blood pressure. We would stop her valsartan and hydrochlorothiazide in light of her renal insufficiency and hyperkalemia. Further recommendations depend on her clinical course. [id number]/[facility] #: [id number] DARREN
--- NOTE | 2018-03-26 15:54 | PN ---
Subjective Date of Service: 03/26/18 Interval History: HOSPITALIST PROGRESS NOTE Patient seen and examined at bedside. Care reviewed and d/w Gracie Bassett RN. She feels a little better today. Still has some chest pressure she rates 4/10, but it's not radiating to her neck. Denies dyspnea, N/V. Her major concern now is to stay close to her (who's actively dying). Family History: Unchanged from Admission Social History: Unchanged from Admission Past Medical History: Unchanged from Admission Objective Active Medications: Aspirin (Aspirin Ec Tab*) 81 mg PO QAM [facility] Last Admin: 03/26/18 09:46 Dose: 81 mg Atorvastatin Calcium (Lipitor*) 80 mg PO 2100 ONE Stop: 03/26/18 21:01 Carvedilol (Coreg Tab*) 3.125 mg PO BID [facility] Last Admin: 03/26/18 13:45 Dose: Not Given Heparin Sodium (Porcine) (Heparin Vial(*)) 0 units IV .BOLUS PRN PRN Reason: HEPARIN DRIP PROTOCOL Last Admin: 03/26/18 02:01 Dose: 2,950 units Heparin Sodium/Dextrose (Heparin Drip 25,000 Units(*)) 25,000 units in 500 mls @ 0 mls/hr IVPB PER RATE [facility]; Protocol Last Admin: 03/26/18 02:01 Dose: 12 mls/hr Sodium Chloride (Ns 0.9% 1000 Ml*) 1,000 mls @ 50 mls/hr IV PER RATE [facility] Last Admin: 03/26/18 09:21 Dose: 50 mls/hr Sodium Chloride (Ns 0.9% 500 Ml*) 500 mls @ 175 mls/hr IV PER RATE [facility] Last Admin: 03/26/18 11:18 Dose: 175 mls/hr Lorazepam (Ativan Inj*) 1 mg IV Q3H PRN PRN Reason: ANXIETY Last Admin: 03/26/18 12:20 Dose: 1 mg Mometasone Furoate/Formoterol Fumar (Dulera 200/5 Mdi*) 2 puff INH BID [facility] Last Admin: 03/26/18 09:52 Dose: 2 puff Montelukast Sodium (Singulair Tab*) 10 mg PO QPM [facility] Last Admin: 03/26/18 01:57 Dose: 10 mg Morphine Sulfate (Morphine Inj ((Syringe))*) 1 mg IV Q2H PRN PRN Reason: PAIN Last Admin: 03/26/18 04:30 Dose: 1 mg Omeprazole (Prilosec Cap*) 20 mg PO QAM@0730 [facility] Last Admin: 03/26/18 09:46 Dose: 20 mg Polyethylene Glycol/Electrolytes (Miralax*) 17 gm PO EVERY OTHER DAY [facility] Last Admin: 03/26/18 09:51 Dose: 17 gm Tiotropium [place] (Spiriva Cap.Inh*) 1 cap INH QAM [facility] Last Admin: 03/26/18 09:50 Dose: 1 inh Vital Signs - 8 hr 03/26/18 03/26/18 03/26/18 09:50 11:08 12:20 Temperature 97.4 F Pulse Rate 84 73 Respiratory 16 18 Rate Blood Pressure 90/52 (mmHg) O2 Sat by Pulse 98 Oximetry 03/26/18 03/26/18 13:45 15:05 Temperature 97.3 F Pulse Rate 78 Respiratory 16 16 Rate Blood Pressure 108/63 (mmHg) O2 Sat by Pulse 93 Oximetry Oxygen Devices in Use Now: Nasal Cannula - 2 liters Appearance: Pleasant elderly lady lying in bed in [facility]. Eyes: No Scleral Icterus Ears/Nose/Mouth/Throat: Mucous Membranes Moist Neck: Trachea Midline Respiratory: Symmetrical Chest Expansion and Respiratory Effort, Clear to Auscultation Cardiovascular: RRR - Normal S1 and S2 Abdominal: NL Sounds; No Tenderness; No Distention Neurological: Alert and Oriented x 3, NL Muscle Strength and Tone Result Diagrams: 03/25/18 23:20 03/25/18 23:20 Assess/Plan/Problems-Billing Assessment: Mrs. Guerrero is an 87yo F with PMH of CAD, CKD stage 3-4, HTN, HLD, asthma, who presented to ED with c/o chest heaviness, found to have NSTEMI. - Patient Problems (1) NSTEMI (non-ST elevated myocardial infarction) Comment: - Patient is going through a very stressful situation with her ' s imminent . - Respecting her wishes, we will continue medical management with Aspirin, heparin drip, low dose beta fransisca, statin. - Continue benzodiazepines for anxyolisis and Morphine for symptomatic treatment and comfort. - Cardiology consult requested. (2) CKD (chronic kidney disease) stage 4, GFR 15-29 ml/min Comment: - CKD stage 3-4 - continue to monitor renal function. (3) HTN (hypertension) Comment: - BP is on the lower side - continue low dose beta fransisca and give a small fluid bolus. (4) HLD (hyperlipidemia) Comment: - Continue Atorvastatin. (5) DVT prophylaxis Comment: - Heparin drip. (6) DNR (do not resuscitate) Status and Disposition: Inpatient.
[2018-03-26] MEDS ORDERED: Atorvastatin* 80 MG TAB PO ONE (21:00)
[2018-03-27] MEDS ORDERED: Nitroglycerin TAB 0.4 MG* 0.4 MG TAB SL ONE (04:40)
[2018-03-27] MEDS ORDERED: NS 0.9% 500 ML* 500 ML IV ONE (04:44)
[2018-03-27] MEDS: Morphine INJ* 2 MG/ML 1 ML SYRINGE (TWO MG - NEW SYRINGE VERSION) IV PRN ×6 (04:52→19:16)
[2018-03-27 05:03] LABS: ABS Basophils 0.1 10^3/ul (0-0.2); ABS Eosinophils 0.5 10^3/ul (0-0.6); ABS Lymphocytes 1.1 10^3/ul (1.0-4.8); ABS Monocytes 0.7 10^3/ul (0-0.8); ABS Neutrophils 4.9 10^3/ul (1.5-7.7); ABS Nucleated RBC 0 10^3/ul; Eosinophil % 6.7 % (0-6); Hematocrit 32 % (35-47); Hemoglobin 10.6 g/dl (12.0-16.0); Mean Corpuscular HGB Conc 34 g/dl (31-36); Mean Corpuscular Hemoglobin 30 pg (27-31); Mean Corpuscular Volume 90 fL (80-97); Nucleated Red Blood Cells % 0; Platelet Count 186 10^3/ul (150-450); Red Blood Count 3.52 10^6/ul (4.00-5.40); Red Cell Distribution Width 14 % (10.5-15); White Blood Count 7.2 10^3/ul (3.5-10.8)
--- NOTE | 2018-03-27 05:03 | PN ---
Progress Note - Progress Note Date of Service: 03/27/18 Note: Paged by RN that patient developed worsening CP, exacerbated with exertion. REpeat EKG showed ST changes and ST elevation in lateral leads. NTG and morphine ordered with NS bolus. Per Dr. Escamilla's note patient did not want aggressive measures. At the bedside patient's daugther is there and I had asked again if she would want to pursue a cardiac cath and she became tearful and did not know what to do. Patient's just here at [facility] about [address] Haywood called to review EKG. Discussed case with family and Dr. Haywood with patient's initial request for non aggressive measures, her renal function, and a likely possibility of this being takysubo, the decision is to get her symptoms under better control medically. Transfer to ICU. Will continue morphine, NTG, and Ativan prn. IVF bolus as needed. Will also start Plavix. FOllow up with cardiology and patient to determine further goals of care.
[2018-03-27] MEDS ORDERED: Morphine INJ* 2 MG/ML 1 ML SYRINGE (TWO MG - NEW SYRINGE VERSION) IV ONE ×2 (05:16→07:56)
[2018-03-27] MEDS ORDERED: LORazepam INJ* 2 MG/ML 1 ML VIAL IV PRN (05:22)
[2018-03-27 05:55] LABS: EGFR Non-African American 35.9 (>60)
[2018-03-27] MEDS ORDERED: Perflutren Lipid Microsphere* 3 ML VIAL ONE (07:43)
[2018-03-27] MEDS ORDERED: LORazepam TAB(*) 0.5 MG PO PRN (07:57)
[2018-03-27] MEDS ORDERED: NS 0.9% 500 ML* 500 ML IV SCH (07:57)
--- NOTE | 2018-03-27 07:58 | PN ---
Subjective Date of Service: 03/27/18 Interval History: HOSPITALIST PROGRESS NOTE Patient seen and examined at bedside. Care reviewed and d/w Nicky Ashford RN. She had worsening chest pain last night with more EKG changes, including mild ST elevation. She feels a little better this AM, with less chest pressure. Denies dyspnea or palpitations. She's very clear she would not want aggressive interventions, including cath, especially considering the risk of renal complications. Family History: Unchanged from Admission Social History: Unchanged from Admission Past Medical History: Unchanged from Admission Objective Active Medications: Aspirin (Aspirin Ec Tab*) 81 mg PO QAM [facility] Last Admin: 03/26/18 09:46 Dose: 81 mg Carvedilol (Coreg Tab*) 3.125 mg PO BID [facility] Last Admin: 03/26/18 20:08 Dose: 3.125 mg Clopidogrel Bisulfate (Plavix Tab*) 75 mg PO DAILY [facility] Heparin Sodium (Porcine) (Heparin Vial(*)) 0 units IV .BOLUS PRN PRN Reason: HEPARIN DRIP PROTOCOL Last Admin: 03/26/18 16:13 Dose: 1,500 units Heparin Sodium/Dextrose (Heparin Drip 25,000 Units(*)) 25,000 units in 500 mls @ 0 mls/hr IVPB PER RATE [facility]; Protocol Last Admin: 03/26/18 02:01 Dose: 12 mls/hr Sodium Chloride (Ns 0.9% 1000 Ml*) 1,000 mls @ 50 mls/hr IV PER RATE [facility] Last Admin: 03/26/18 16:13 Dose: 50 mls/hr Sodium Chloride (Ns 0.9% 500 Ml*) 500 mls @ 50 mls/hr IV PER RATE [facility] Lorazepam (Ativan Inj*) 1 mg IV Q2HR PRN PRN Reason: ANXIETY Mometasone Furoate/Formoterol Fumar (Dulera 200/5 Mdi*) 2 puff INH BID [facility] Last Admin: 03/26/18 20:30 Dose: 2 puff Montelukast Sodium (Singulair Tab*) 10 mg PO QPM [facility] Last Admin: 03/26/18 16:13 Dose: 10 mg Morphine Sulfate (Morphine Inj ((Syringe))*) 1 mg IV Q2H PRN PRN Reason: PAIN Last Admin: 03/27/18 07:49 Dose: 1 mg Morphine Sulfate (Morphine Inj (Syringe)*) 1 mg IV ONCE ONE Stop: 03/27/18 07:57 Pantoprazole Sodium (Protonix Tab (Nf)) 40 mg PO QAM [facility] Polyethylene Glycol/Electrolytes (Miralax*) 17 gm PO EVERY OTHER DAY [facility] Last Admin: 03/26/18 09:51 Dose: 17 gm Tiotropium [place] (Spiriva Cap.Inh*) 1 cap INH QAM [facility] Last Admin: 03/26/18 09:50 Dose: 1 inh Vital Signs - 8 hr 03/27/18 03/27/18 03/27/18 00:00 01:46 03:24 Temperature 98.3 F Pulse Rate 80 Respiratory 20 Rate Blood Pressure 102/78 85/43 (mmHg) O2 Sat by Pulse 94 94 Oximetry 03/27/18 03/27/18 03/27/18 04:15 04:52 05:30 Temperature Pulse Rate Respiratory 20 Rate Blood Pressure 100/70 98/68 (mmHg) O2 Sat by Pulse Oximetry 03/27/18 03/27/18 03/27/18 05:39 05:51 06:40 Temperature Pulse Rate Respiratory 20 23 Rate Blood Pressure 108/68 (mmHg) O2 Sat by Pulse Oximetry 03/27/18 03/27/18 07:11 07:49 Temperature 98.2 F Pulse Rate 86 Respiratory 20 20 Rate Blood Pressure 129/70 (mmHg) O2 Sat by Pulse 96 Oximetry Oxygen Devices in Use Now: Nasal Cannula - 2 liters Appearance: Pleasant elderly lady lying in bed in [facility]. Eyes: No Scleral Icterus Ears/Nose/Mouth/Throat: Mucous Membranes Moist Neck: Trachea Midline Respiratory: Symmetrical Chest Expansion and Respiratory Effort, Clear to Auscultation Cardiovascular: RRR - Normal S1 and S2 Abdominal: NL Sounds; No Tenderness; No Distention Neurological: Alert and Oriented x 3, NL Muscle Strength and Tone Result Diagrams: 03/27/18 04:45 03/27/18 04:45 Assess/Plan/Problems-Billing Assessment: Mrs. Guerrero is an 87yo F with PMH of CAD, CKD stage 3-4, HTN, HLD, asthma, who presented to ED with c/o chest heaviness, found to have NSTEMI. - Patient Problems (1) NSTEMI (non-ST elevated myocardial infarction) Comment: - Patient is going through a very stressful situation with her ' s imminent . - Echo showed new reduced EF 30-35% with multiple wall motion abnormalities. - Patient is very clear she does not want aggressive/invasive measures. Respecting her wishes, we will continue medical management with Aspirin, Plavix , heparin drip, low dose beta fransisca, statin. - Continue benzodiazepines for anxyolisis and Morphine for symptomatic treatment and comfort. - Cardiology consult requested. (2) CKD (chronic kidney disease) stage 4, GFR 15-29 ml/min Comment: - CKD stage 3-4 - continue to monitor renal function. (3) HTN (hypertension) Comment: - BP is on the lower side but trending up - continue low dose beta fransisca and gentle IV hydration. (4) HLD (hyperlipidemia) Comment: - Continue Atorvastatin. (5) DVT prophylaxis Comment: - Heparin drip. (6) DNR (do not resuscitate) Status and Disposition: Inpatient.
[2018-03-27] MEDS: Mometasone/Formoter 200/5 MDI INH SCH ×2 (08:40→20:29)
[2018-03-27] MEDS: Tiotropium CAP.INH* CAP.INH/18 MCG (USE ORDER SET !) INH SCH (08:40)
[2018-03-27] MEDS ORDERED: CMCS:Pantoprazole TAB (NF) 40 MG TAB PO SCH (09:00)
[2018-03-27] MEDS: Clopidogrel TAB* 75 MG PO SCH ×2 (09:28→09:29)
[2018-03-27] MEDS: Carvedilol TAB* 3.125 MG PO SCH ×2 (09:28→21:13)
[2018-03-27] MEDS: Aspirin EC TAB* 81 MG TAB.EC PO SCH (09:28)
--- NOTE | 2018-03-27 11:28 | ECHO ---
Patient: [facility] Rec#: [id number] : 1930 Date: 03/27/2018 Age: 87y Height: 122 cm / 48.0 in Weight: 106 kg / 233.6 lbs Sex: F BSA: 1.7 Room#: [facility] Admit Date#: 03/26/2018 Type: Inpatient Referring: Kaveh Escamilla MD Reading: Quique Wagner MD Vegetable Buncher: Coreen Jean QUE CC: Dagmar Dillard MD CC: Aman James MD Transthoracic Echocardiogram Indication: Chest Pain BP: 108/68 HR: 92 Rhythm: NSR Findings History: Chest pain associated with emotional stress of spouse's , CAD,prior RI,COPD,asthma,former smoker,CKD stage III-IV, HTN,HLD. Technical Comments: The study is technically limited due to the patient's history of COPD. Definity used to enhance images. Left Ventricle: The left ventricular chamber size is normal. Septal wall hypertrophy is observed. There are multiple regional wall motion abnormalities. There is moderately decreased left ventricular systolic function. The estimated ejection fraction is 30-35%. No thrombus seen in apex Abnormal left ventricular diastolic function is observed. The mid anteroseptal, mid anterior, mid inferoseptal, apical lateral, and apical inferior wall segments are hypokinetic (score 2). The apical septal, and apical anterior wall segments are akinetic (score 3). Overall wallmotion score index is 2.29 Left Atrium: The left atrium is mildly dilated. Right Ventricle: The right ventricular cavity size is normal. The right ventricular global systolic function is normal. Right Atrium: The right atrial cavity size is normal. Aortic Valve: The aortic valve is trileaflet. There is no evidence of aortic valve thickening. There is no evidence of aortic regurgitation. There is no evidence of aortic stenosis. Mitral Valve: The mitral valve leaflets are mildly thickened. There is a trace of mitral regurgitation. There is no evidence of mitral stenosis. Tricuspid Valve: The tricuspid valve leaflets are normal. There is moderate tricuspid regurgitation. There is evidence of moderate pulmonary hypertension. There is no tricuspid stenosis. Pulmonic Valve: The pulmonic valve appears normal. There is no evidence of pulmonic regurgitation. There is no pulmonic stenosis. Pericardium: The pericardium appears normal. Aorta: There is no dilatation of the ascending aorta. There is no dilatation of the aortic arch. There is no dilation of the aortic root. Pulmonary Artery: The main pulmonary artery appears normal. Venous: The venous system is not well visualized. Contrast: Definity was used to optimize study. A total of 3 ml used. Intravenous contrast was used to enhance endocardial border definition. Conclusions There is moderately decreased left ventricular systolic function. There are multiple regional wall motion abnormalities. The estimated ejection fraction is 30-35%. No thrombus seen in apex The mid anteroseptal, mid anterior, mid inferoseptal, apical lateral, and apical inferior wall segments are hypokinetic (score 2). The apical septal, and apical anterior wall segments are akinetic (score 3). There is no evidence of aortic stenosis. There is a trace of mitral regurgitation. There is moderate tricuspid regurgitation. There is evidence of moderate pulmonary hypertension. The pericardium appears normal. Compared to study of 02/06/13, the LV dysfunction is new Measurements Name Value Normal Range RVIDd (AP) 2D 2.6 cm (0.9 - 2.6) RVDdMajor (2D) 2.5 cm (2.2 - 4.4) RAd ISD 4CH 4.1 cm (3.4 - 4.9) RA (A4C)W 3.7 cm (2.9 - 4.6) IVSd (2D) 1.5 cm (0.6 - 1) LVPWd (2D) 1 cm (0.6 - 1) LVIDd (2D) 3.6 cm (3.6 - 5.4) LVIDs (2D) 2.9 cm - LV FS (2D) 19 % (25 - 45) Aortic Annulus 1.6 cm (1.4 - 2.6) Ao root diameter (2D) 2.6 cm (2.1 - 3.5) Ascending Ao 3.3 cm (2.1 - 3.4) Aortic arch 2.2 cm (1.8 - 3.4) Descending Ao 1 cm - LA dimension (AP) 2D 3.9 cm (2.3 - 3.8) LAd ISD 4CH 5.5 cm (2.9 - 5.3) LA ISD 4CH W 3.6 cm (2.5 - 4.5) Name Value Normal Range LA ESV SP 4CH (A/L) 55 ml - LA ESV SP 2CH (A/L) 58 ml - LA ESV BP (A/L) index 58 ml/m2 - Name Value Normal Range MV E-wave Vmax 0.9 m/sec - MV deceleration time 134 msec - MV A-wave Vmax 1 m/sec - MV E:A ratio 0.9 ratio - LV septal e' Vmax 0.09 m/sec - LV lateral e' Vmax 0.1 m/sec - LV E:e' septal ratio 10 ratio - LV E:e' lateral ratio 9 ratio - Name Value Normal Range AV Vmax 1.2 m/sec - AV VTI 23.7 cm - AV peak gradient 6 mmHg - AV mean gradient 3 mmHg - LVOT Vmax 1 m/sec - LVOT VTI 22.2 cm - LVOT peak gradient 4 mmHg - LVOT mean gradient 2 mmHg - Name Value Normal Range TR Vmax 3.2 m/sec - TR peak gradient 40 mmHg - RAP 8 mmHg - RVSP 48 mmHg - Name Value Normal Range PV Vmax 0.8 m/sec - PV peak gradient 2 mmHg - Wallmotion BAS Not Seen BA Not Seen BAL Not Seen ANA LUISA Not Seen BI Not Seen BIS Not Seen MAS Hypokinetic MA Hypokinetic MAL Not Seen MIL Not Seen RI Not Seen MIS Hypokinetic Akinetic AA Akinetic AL Hypokinetic AI Hypokinetic APEX Akinetic
[2018-03-27] MEDS: Heparin DRIP 25,000 UNITS(*) 25,000 UNITS/500 ML BAG IVPB SCH (15:17)
[2018-03-27] MEDS: Heparin VIAL(*) 5000 UNITS/ML VIAL (FIVE THOUSAND) IV PRN (17:52)
[2018-03-27] MEDS: Montelukast Sodium TAB* 10 MG PO SCH (17:53)
[2018-03-28] MEDS: NS 0.9% 1000 ML* 1,000 ML IV SCH (00:03)
[2018-03-28 05:13] LABS: ABS Basophils 0 10^3/ul (0-0.2); ABS Eosinophils 0.2 10^3/ul (0-0.6); ABS Lymphocytes 0.9 10^3/ul (1.0-4.8); ABS Monocytes 0.9 10^3/ul (0-0.8); ABS Neutrophils 4.5 10^3/ul (1.5-7.7); ABS Nucleated RBC 0 10^3/ul; Eosinophil % 3.1 % (0-6); Hematocrit 31 % (35-47); Hemoglobin 10.3 g/dl (12.0-16.0); Lymphocyte % 14.2 % (25-47); Mean Corpuscular HGB Conc 33 g/dl (31-36); Mean Corpuscular Hemoglobin 30 pg (27-31); Mean Corpuscular Volume 91 fL (80-97); Mean Platelet Volume 6.8 um3 (7.4-10.4); Nucleated Red Blood Cells % 0; Platelet Count 174 10^3/ul (150-450); Red Blood Count 3.41 10^6/ul (4.00-5.40); Red Cell Distribution Width 14 % (10.5-15); White Blood Count 6.6 10^3/ul (3.5-10.8)
[2018-03-28 05:36] LABS: EGFR Non-African American 39.1 (>60)
[2018-03-28] MEDS: CMCS:Pantoprazole TAB (NF) 40 MG TAB PO SCH (06:08)
[2018-03-28] MEDS: Polyethylene Glycol 3350* 17 GM PACKET PO SCH (07:30)
--- NOTE | 2018-03-28 07:56 | PN ---
Subjective Date of Service: 03/28/18 Interval History: Ms. Guerrero complains of some left-sided chest discomfort but it is better than it was yesterday. She walked from the bed to the commode today and got short of breath. She has some constipation and usually moves her bowels every day. Her son is at the bedside. She is tearful about the loss of her . Family History: Unchanged from Admission Social History: Unchanged from Admission Past Medical History: Unchanged from Admission Objective Active Medications: Aspirin (Aspirin Ec Tab*) 81 mg PO QAM [facility] Last Admin: 03/27/18 09:28 Dose: 81 mg Carvedilol (Coreg Tab*) 3.125 mg PO BID [facility] Last Admin: 03/27/18 21:13 Dose: Not Given Clopidogrel Bisulfate (Plavix Tab*) 75 mg PO DAILY [facility] Last Admin: 03/27/18 09:29 Dose: Not Given Heparin Sodium (Porcine) (Heparin Vial(*)) 0 units IV .BOLUS PRN PRN Reason: HEPARIN DRIP PROTOCOL Last Admin: 03/27/18 17:52 Dose: 1,500 units Heparin Sodium/Dextrose (Heparin Drip 25,000 Units(*)) 25,000 units in 500 mls @ 0 mls/hr IVPB PER RATE [facility]; Protocol Last Admin: 03/27/18 15:17 Dose: 12 mls/hr Sodium Chloride (Ns 0.9% 1000 Ml*) 1,000 mls @ 50 mls/hr IV PER RATE [facility] Last Admin: 03/28/18 00:03 Dose: 50 mls/hr Sodium Chloride (Ns 0.9% 500 Ml*) 500 mls @ 50 mls/hr IV PER RATE [facility] Lorazepam (Ativan Inj*) 1 mg IV Q2HR PRN PRN Reason: ANXIETY Last Admin: 03/27/18 19:20 Dose: 1 mg Lorazepam (Ativan Tab(*)) 0.5 mg PO Q4H PRN PRN Reason: ANXIETY Mometasone Furoate/Formoterol Fumar (Dulera 200/5 Mdi*) 2 puff INH BID [facility] Last Admin: 03/27/18 20:29 Dose: 2 puff Montelukast Sodium (Singulair Tab*) 10 mg PO QPM [facility] Last Admin: 03/27/18 17:53 Dose: 10 mg Morphine Sulfate (Morphine Inj ((Syringe))*) 1 mg IV Q2H PRN PRN Reason: PAIN Last Admin: 03/27/18 19:16 Dose: 1 mg Pantoprazole Sodium (Protonix Tab (Nf)) 40 mg PO 06 [facility] Last Admin: 03/28/18 06:08 Dose: 40 mg Polyethylene Glycol/Electrolytes (Miralax*) 17 gm PO EVERY OTHER DAY [facility] Last Admin: 03/28/18 07:30 Dose: 17 gm Tiotropium [place] (Spiriva Cap.Inh*) 1 cap INH QAM [facility] Last Admin: 03/27/18 08:40 Dose: 1 inh Vital Signs - 8 hr 03/27/18 03/27/18 03/28/18 23:55 23:57 00:00 Temperature Pulse Rate 77 76 77 Respiratory 19 18 27 Rate Blood Pressure 101/58 98/60 96/53 (mmHg) O2 Sat by Pulse 91 92 92 Oximetry 03/28/18 03/28/18 03/28/18 00:30 01:00 01:31 Temperature Pulse Rate 76 80 75 Respiratory 16 23 16 Rate Blood Pressure 110/57 118/71 109/59 (mmHg) O2 Sat by Pulse 94 96 98 Oximetry 03/28/18 03/28/18 03/28/18 02:00 02:01 02:30 Temperature Pulse Rate 72 74 79 Respiratory 15 17 22 Rate Blood Pressure 100/64 123/68 (mmHg) O2 Sat by Pulse 97 98 96 Oximetry 03/28/18 03/28/18 03/28/18 03:00 03:30 03:43 Temperature 99.2 F Pulse Rate 83 78 Respiratory 20 24 Rate Blood Pressure 135/108 130/63 (mmHg) O2 Sat by Pulse 92 93 Oximetry 03/28/18 03/28/18 03/28/18 03:45 03:53 04:00 Temperature Pulse Rate 75 Respiratory 16 17 17 Rate Blood Pressure (mmHg) O2 Sat by Pulse 97 Oximetry 03/28/18 03/28/18 03/28/18 04:01 04:02 04:31 Temperature Pulse Rate 80 80 75 Respiratory 18 13 16 Rate Blood Pressure 80/46 102/56 95/47 (mmHg) O2 Sat by Pulse 99 96 100 Oximetry 03/28/18 03/28/18 03/28/18 05:00 05:30 06:00 Temperature Pulse Rate 85 88 77 Respiratory 18 20 20 Rate Blood Pressure 122/62 121/82 (mmHg) O2 Sat by Pulse 97 98 93 Oximetry 03/28/18 03/28/18 03/28/18 06:01 06:30 07:00 Temperature Pulse Rate 79 80 74 Respiratory 21 25 19 Rate Blood Pressure 102/69 121/61 102/62 (mmHg) O2 Sat by Pulse 92 96 95 Oximetry 03/28/18 07:25 Temperature 99.3 F Pulse Rate Respiratory Rate Blood Pressure (mmHg) O2 Sat by Pulse Oximetry Oxygen Devices in Use Now: Nasal Cannula Appearance: alert, elderly female in no distress, able to speak in full sentences Eyes: No Scleral Icterus Ears/Nose/Mouth/Throat: NL Teeth, Lips, Gums Neck: - - JVP 12cm Respiratory: - - crackles b/l bases Cardiovascular: RRR, No Edema Abdominal: NL Sounds; No Tenderness; No Distention, No Hepatosplenomegaly Lymphatic: No Cervical Adenopathy Extremities: No Edema Skin: No Rash or Ulcers Neurological: Alert and Oriented x 3 Result Diagrams: 03/28/18 04:55 03/28/18 04:55 Assess/Plan/Problems-Billing Assessment: Mrs. Guerrero is an 87yo F with PMH of CAD, CKD stage 3-4, HTN, HLD, asthma, who presented to ED with c/o chest heaviness, found to have NSTEMI. - Patient Problems (1) NSTEMI (non-ST elevated myocardial infarction) Current Visit: Yes Status: Acute Code(s): I21.4 - NON-ST ELEVATION (NSTEMI) MYOCARDIAL INFARCTION SNOMED Code(s): 332122692 Comment: Ms. Guerrero requests only medical management and declined a [facility] troponin peaked at 1.01 Continue aspirin, Plavix, heparin drip, low dose beta fransisca, statin. Heparin drip has been on for 48 hours today; may discontinue pending cardiology input. Continue benzodiazepines for anxyolisis and Morphine for comfort. Dr. Escamilla following; she follows with Dr. Dillard outpatient (2) Acute systolic heart failure Current Visit: Yes Status: Acute Code(s): I50.21 - ACUTE SYSTOLIC ( CONGESTIVE) HEART FAILURE SNOMED Code(s): 946673163 Comment: ef 30-35% with mod TR and mod pulmonary hypertension continue coreg ARB discontinued due to hypotension (3) Acute respiratory failure with hypoxia Current Visit: Yes Status: Acute Code(s): J96.01 - ACUTE RESPIRATORY FAILURE WITH HYPOXIA SNOMED Code(s): 72718872 Comment: likely due to pulmonary edema stop IVF today may need gentle diuresis (4) Fever Current Visit: Yes Status: Acute Code(s): R50.9 - FEVER, UNSPECIFIED SNOMED Code(s): 154377617 Comment: 100.6 on 03/26; no localizing source continue to monitor (5) CKD (chronic kidney disease) stage 4, GFR 15-29 ml/min Current Visit: Yes Status: Acute Code(s): N18.4 - CHRONIC KIDNEY DISEASE, STAGE 4 (SEVERE) SNOMED Code(s): 187529069 Comment: at baseline (6) DNR (do not resuscitate) Current Visit: Yes Status: Acute (7) HTN (hypertension) Current Visit: Yes Status: Acute Code(s): I10 - ESSENTIAL (PRIMARY) HYPERTENSION SNOMED Code(s): 05203920 Comment: bp is at goal Status and Disposition: Inpatient.
[2018-03-28] MEDS ORDERED: Polyethylene Glycol 3350* 17 GM PACKET PO PRN (08:00)
[2018-03-28] MEDS: Mometasone/Formoter 200/5 MDI INH SCH ×2 (08:11→20:04)
[2018-03-28] MEDS: Tiotropium CAP.INH* CAP.INH/18 MCG (USE ORDER SET !) INH SCH (08:12)
[2018-03-28] MEDS: Clopidogrel TAB* 75 MG PO SCH (09:27)
[2018-03-28] MEDS: Carvedilol TAB* 3.125 MG PO SCH ×2 (09:27→22:08)
[2018-03-28] MEDS: Aspirin EC TAB* 81 MG TAB.EC PO SCH (09:27)
[2018-03-28] MEDS: Heparin VIAL(*) 5000 UNITS/ML VIAL (FIVE THOUSAND) IV PRN (13:24)
[2018-03-28] MEDS: Montelukast Sodium TAB* 10 MG PO SCH (16:57)
[2018-03-28] MEDS ORDERED: Al Hydrox/Mg Hydrox/Simet LIQ* 30 ML UDC PO PRN (22:07)
[2018-03-28] MEDS: Calcium Polycarbophil TAB* 625 MG PO SCH (22:08)
[2018-03-29 05:23] LABS: ABS Basophils 0 10^3/ul (0-0.2); ABS Eosinophils 0.2 10^3/ul (0-0.6); ABS Lymphocytes 0.7 10^3/ul (1.0-4.8); ABS Monocytes 0.6 10^3/ul (0-0.8); ABS Neutrophils 3.2 10^3/ul (1.5-7.7); ABS Nucleated RBC 0 10^3/ul; Eosinophil % 3.3 % (0-6); Hematocrit 26 % (35-47); Hemoglobin 8.8 g/dl (12.0-16.0); Lymphocyte % 15.1 % (25-47); Mean Corpuscular HGB Conc 34 g/dl (31-36); Mean Corpuscular Hemoglobin 31 pg (27-31); Mean Corpuscular Volume 90 fL (80-97); Mean Platelet Volume 6.8 um3 (7.4-10.4); Nucleated Red Blood Cells % 0; Platelet Count 139 10^3/ul (150-450); Red Blood Count 2.84 10^6/ul (4.00-5.40); Red Cell Distribution Width 14 % (10.5-15); White Blood Count 4.7 10^3/ul (3.5-10.8)
[2018-03-29 05:36] LABS: EGFR Non-African American 40.9 (>60)
[2018-03-29] MEDS ORDERED: Omeprazole CAP* 20 MG PO SCH ×2 (06:00)
[2018-03-29] MEDS: CMCS:Pantoprazole TAB (NF) 40 MG TAB PO SCH (06:13)
[2018-03-29] MEDS: Mometasone/Formoter 200/5 MDI INH SCH ×2 (07:21→20:38)
[2018-03-29] MEDS: Tiotropium CAP.INH* CAP.INH/18 MCG (USE ORDER SET !) INH SCH (07:21)
[2018-03-29] MEDS: Calcium Polycarbophil TAB* 625 MG PO SCH ×2 (09:00→20:13)
[2018-03-29] MEDS: Lactobacillus Acidophilus* 1 TAB PO SCH (09:00)
[2018-03-29] MEDS: Carvedilol TAB* 3.125 MG PO SCH ×2 (09:02→20:13)
[2018-03-29] MEDS: Aspirin EC TAB* 81 MG TAB.EC PO SCH (09:02)
[2018-03-29] MEDS: Clopidogrel TAB* 75 MG PO SCH (09:02)
--- NOTE | 2018-03-29 10:31 | PN ---
Subjective Date of Service: 03/29/18 Interval History: pt reports she feels much better today for the first time. Her two sons are at the bedside and agree she is going better today. Pt denies any CP or SOB. report her strength is improving. Family History: Unchanged from Admission Social History: Unchanged from Admission Past Medical History: Unchanged from Admission Objective Active Medications: Al Hydrox/Mg Hydrox/Simethicone (Maalox Plus*) 30 ml PO Q6H PRN PRN Reason: DYSPEPSIA Last Admin: 03/28/18 22:40 Dose: 30 ml Aspirin (Aspirin Ec Tab*) 81 mg PO QAM [facility] Last Admin: 03/29/18 09:02 Dose: 81 mg Calcium Polycarbophil (Fibercon Tab*) 1,250 mg PO BID [facility] Last Admin: 03/29/18 09:00 Dose: 1,250 mg Carvedilol (Coreg Tab*) 3.125 mg PO BID [facility] Last Admin: 03/29/18 09:02 Dose: 3.125 mg Clopidogrel Bisulfate (Plavix Tab*) 75 mg PO DAILY [facility] Last Admin: 03/29/18 09:02 Dose: 75 mg Sodium Chloride (Ns 0.9% 500 Ml*) 500 mls @ 50 mls/hr IV PER RATE [facility] Lactobacillus Rhamnosus (Lactobacillus Acidophilus*) 1 tab PO DAILY [facility] Last Admin: 03/29/18 09:00 Dose: 1 tab Lorazepam (Ativan Inj*) 1 mg IV Q2HR PRN PRN Reason: ANXIETY Last Admin: 03/27/18 19:20 Dose: 1 mg Lorazepam (Ativan Tab(*)) 0.5 mg PO Q4H PRN PRN Reason: ANXIETY Mometasone Furoate/Formoterol Fumar (Dulera 200/5 Mdi*) 2 puff INH BID [facility] Last Admin: 03/29/18 07:21 Dose: 2 puff Montelukast Sodium (Singulair Tab*) 10 mg PO QPM [facility] Last Admin: 03/28/18 16:57 Dose: 10 mg Morphine Sulfate (Morphine Inj ((Syringe))*) 1 mg IV Q2H PRN PRN Reason: PAIN Last Admin: 03/27/18 19:16 Dose: 1 mg Pantoprazole Sodium (Protonix Tab (Nf)) 40 mg PO 0600 [facility] Last Admin: 03/29/18 06:13 Dose: 40 mg Polyethylene Glycol/Electrolytes (Miralax*) 17 gm PO DAILY PRN PRN Reason: CONSTIPATION Polyethylene Glycol/Electrolytes (Miralax*) 17 gm PO EVERY OTHER DAY [facility] Tiotropium [place] (Spiriva Cap.Inh*) 1 cap INH QAM [facility] Last Admin: 03/29/18 07:21 Dose: 1 cap Vital Signs - 8 hr 03/29/18 03/29/18 03/29/18 03:15 03:29 07:35 Temperature 98.7 F 98.1 F Pulse Rate 80 78 Respiratory 20 16 Rate Blood Pressure 90/50 80/39 104/56 (mmHg) O2 Sat by Pulse 97 98 Oximetry 03/29/18 03/29/18 08:00 08:31 Temperature Pulse Rate Respiratory 16 Rate Blood Pressure (mmHg) O2 Sat by Pulse 96 96 Oximetry Oxygen Devices in Use Now: Nasal Cannula Appearance: eldelry female sitting up in a chair in NAD, A+O x3 Eyes: No Scleral Icterus, PERRLA Ears/Nose/Mouth/Throat: NL Teeth, Lips, Gums, Mucous Membranes Moist Neck: NL Appearance and Movements; NL JVP Respiratory: Symmetrical Chest Expansion and Respiratory Effort, Clear to Auscultation Cardiovascular: NL Sounds; No Murmurs; No JVD, RRR, No Edema Abdominal: NL Sounds; No Tenderness; No Distention Lymphatic: No Axillary Adenopathy Extremities: No Clubbing, Cyanosis Skin: No Rash or Ulcers, No Nodules or Sclerosis Neurological: Alert and Oriented x 3, NL Sensation Lines/Tubes/Other Access: Clean, Dry and Intact Peripheral IV Nutrition: Taking PO's Result Diagrams: 03/29/18 05:15 03/29/18 05:15 Assess/Plan/Problems-Billing Assessment: Mrs. Guerrero is an 87yo F with PMH of CAD, CKD stage 3-4, HTN, HLD, asthma, who presented to ED with c/o chest heaviness, found to have NSTEMI. - Patient Problems (1) NSTEMI (non-ST elevated myocardial infarction) Comment: Thought to be secondary to Takosubo's secondary to her husbands Ms. Guerrero requests only medical management and declined a [facility] troponin peaked at 1.01 Echo showing new LV dysfunction with EF 30% Continue aspirin, Plavix, low dose beta fransisca, statin. Heparin drip off - was on for 48 hours Continue benzodiazepines for anxyolisis and Morphine for comfort. Dr. Escamilla following; she follows with Dr. Dillard outpatient (2) Acute respiratory failure with hypoxia Comment: resolved (3) Acute systolic heart failure Comment: Appears euvolemic ef 30-35% with mod TR and mod pulmonary hypertension continue coreg ARB discontinued due to hypotension (4) CKD (chronic kidney disease) stage 4, GFR 15-29 ml/min Comment: at baseline (5) Fever Comment: 100.6 on 03/26; no localizing source. now afebrile (6) HLD (hyperlipidemia) Comment: - Continue Atorvastatin. (7) HTN (hypertension) Comment: bp stable (8) DNR (do not resuscitate) (9) DVT prophylaxis Comment: - Heparin SQ Status and Disposition: Inpatient. patient lives alone, PT following. Discharge disposition to be determined.
[2018-03-29] MEDS: Montelukast Sodium TAB* 10 MG PO SCH (17:53)
[2018-03-29] MEDS ORDERED: Acetaminophen TAB* 325 MG PO PRN (20:19)
[2018-03-29] MEDS: Heparin VIAL(*) 5000 UNITS/ML VIAL (FIVE THOUSAND) SUBCUT SCH (23:00)
[2018-03-30] MEDS: CMCS:Pantoprazole TAB (NF) 40 MG TAB PO SCH (05:49)
[2018-03-30] MEDS: Heparin VIAL(*) 5000 UNITS/ML VIAL (FIVE THOUSAND) SUBCUT SCH ×3 (05:50→20:50)
[2018-03-30 06:31] LABS: ABS Basophils 0 10^3/ul (0-0.2); ABS Eosinophils 0.4 10^3/ul (0-0.6); ABS Lymphocytes 0.7 10^3/ul (1.0-4.8); ABS Monocytes 0.4 10^3/ul (0-0.8); ABS Neutrophils 2.7 10^3/ul (1.5-7.7); ABS Nucleated RBC 0 10^3/ul; Eosinophil % 9.5 % (0-6); Hematocrit 28 % (35-47); Hemoglobin 9.5 g/dl (12.0-16.0); Lymphocyte % 16.2 % (25-47); Mean Corpuscular HGB Conc 34 g/dl (31-36); Mean Corpuscular Hemoglobin 30 pg (27-31); Mean Corpuscular Volume 90 fL (80-97); Mean Platelet Volume 7.1 um3 (7.4-10.4); Nucleated Red Blood Cells % 0; Platelet Count 163 10^3/ul (150-450); Red Blood Count 3.12 10^6/ul (4.00-5.40); Red Cell Distribution Width 14 % (10.5-15); White Blood Count 4.3 10^3/ul (3.5-10.8)
[2018-03-30] MEDS: Tiotropium CAP.INH* CAP.INH/18 MCG (USE ORDER SET !) INH SCH (08:27)
[2018-03-30] MEDS: Mometasone/Formoter 200/5 MDI INH SCH ×2 (08:27→20:22)
[2018-03-30] MEDS ORDERED: Polyethylene Glycol 3350* 17 GM PACKET PO SCH (09:00)
[2018-03-30] MEDS: Calcium Polycarbophil TAB* 625 MG PO SCH ×2 (09:37→20:48)
[2018-03-30] MEDS: Lactobacillus Acidophilus* 1 TAB PO SCH (09:38)
[2018-03-30] MEDS: Carvedilol TAB* 3.125 MG PO SCH ×2 (09:38→20:48)
[2018-03-30] MEDS: Clopidogrel TAB* 75 MG PO SCH (09:39)
[2018-03-30] MEDS: Aspirin EC TAB* 81 MG TAB.EC PO SCH (09:39)
--- NOTE | 2018-03-30 16:06 | PN ---
Subjective Date of Service: 03/30/18 Interval History: Ms. Guerrero reports that she is feeling quite well today and denies any complaint. She specifically denies chest pain, SOB, nausea, or abdominal pain. She is very hopeful to return home but family is concerned about her living alone. Patient has multiple involved family members, including her daughter who lives next door. Family History: Unchanged from Admission Social History: Unchanged from Admission Past Medical History: Unchanged from Admission Objective Active Medications: Acetaminophen (Tylenol Tab*) 650 mg PO Q4H PRN Al Hydrox/Mg Hydrox/Simethicone (Maalox Plus*) 30 ml PO Q6H PRN Aspirin (Aspirin Ec Tab*) 81 mg PO QAM [facility] Calcium Polycarbophil (Fibercon Tab*) 1,250 mg PO BID [facility] Carvedilol (Coreg Tab*) 3.125 mg PO BID [facility] Clopidogrel Bisulfate (Plavix Tab*) 75 mg PO DAILY [facility] Heparin Sodium (Porcine) (Heparin Vial(*)) 5,000 units SUBCUT Q8HR [facility] Lactobacillus Rhamnosus (Lactobacillus Acidophilus*) 1 tab PO DAILY [facility] Lorazepam (Ativan Inj*) 1 mg IV Q2HR PRN Lorazepam (Ativan Tab(*)) 0.5 mg PO Q4H PRN Mometasone Furoate/Formoterol Fumar (Dulera 200/5 Mdi*) 2 puff INH BID [facility] Montelukast Sodium (Singulair Tab*) 10 mg PO QPM [facility] Morphine Sulfate (Morphine Inj ((Syringe))*) 1 mg IV Q2H PRN Pantoprazole Sodium (Protonix Tab (Nf)) 40 mg PO 0600 [facility] Polyethylene Glycol/Electrolytes (Miralax*) 17 gm PO DAILY PRN Polyethylene Glycol/Electrolytes (Miralax*) 17 gm PO EVERY OTHER DAY [facility] Tiotropium [place] (Spiriva Cap.Inh*) 1 cap INH QAM [facility] Vital Signs: Temp Pulse Resp BP Pulse Ox 97.9 F 72 18 116/62 100 03/30/18 15:20 03/30/18 15:20 03/30/18 15:20 03/30/18 15:20 03/30/18 15:38 Oxygen Devices in Use Now: None Appearance: Elderly female sitting up in chair in NAD, family at bedside Eyes: No Scleral Icterus Ears/Nose/Mouth/Throat: Mucous Membranes Moist Neck: Trachea Midline Respiratory: Symmetrical Chest Expansion and Respiratory Effort, Clear to Auscultation Cardiovascular: NL Sounds; No Murmurs; No JVD, No Edema Abdominal: NL Sounds; No Tenderness; No Distention Extremities: No Edema Skin: No Rash or Ulcers Neurological: Alert and Oriented x 3, NL Muscle Strength and Tone Nutrition: Taking PO's Result Diagrams: 03/30/18 05:57 03/29/18 05:15 Assess/Plan/Problems-Billing Assessment: Mrs. Guerrero is an 87yo F with PMH of CAD, CKD stage 3-4, HTN, HLD, asthma, who presented to ED with c/o chest heaviness, found to have NSTEMI in setting of of . - Patient Problems (1) NSTEMI (non-ST elevated myocardial infarction) Comment: - Appreciate cardiology consult. - Thought to be secondary to Takutsubo's secondary to her husbands - Ms. Guerrero requests only medical management and declined a [facility]. Echo showing new LV dysfunction with EF 30% - Continue aspirin, Plavix, low dose beta fransisca, statin.. Heparin drip off - was on for 48 hours - Continue benzodiazepines for anxyolisis and Morphine for comfort. (2) Acute systolic heart failure Comment: - Resolved. Appears euvolemic. - EF 30-35% with mod TR and mod pulmonary hypertension - Continue coreg, ARB discontinued due to hypotension (3) HLD (hyperlipidemia) Comment: - Continue Atorvastatin. (4) HTN (hypertension) Comment: - BP 90-120s - Continue coreg. (5) CKD (chronic kidney disease) stage 4, GFR 15-29 ml/min Comment: - at baseline (6) DVT prophylaxis Comment: - Heparin SQ (7) DNR (do not resuscitate) Comment: Status and Disposition: Inpatient. Anticipate discharge to home when medically stable.
[2018-03-30] MEDS: Montelukast Sodium TAB* 10 MG PO SCH (17:53)
[2018-03-31 06:02] LABS: ABS Basophils 0 10^3/ul (0-0.2); ABS Eosinophils 0.4 10^3/ul (0-0.6); ABS Lymphocytes 0.8 10^3/ul (1.0-4.8); ABS Monocytes 0.4 10^3/ul (0-0.8); ABS Neutrophils 2.3 10^3/ul (1.5-7.7); ABS Nucleated RBC 0 10^3/ul; Eosinophil % 11.1 % (0-6); Hematocrit 27 % (35-47); Hemoglobin 9.3 g/dl (12.0-16.0); Lymphocyte % 21.3 % (25-47); Mean Corpuscular HGB Conc 34 g/dl (31-36); Mean Corpuscular Hemoglobin 31 pg (27-31); Mean Corpuscular Volume 90 fL (80-97); Mean Platelet Volume 7.2 um3 (7.4-10.4); Nucleated Red Blood Cells % 0; Platelet Count 172 10^3/ul (150-450); Red Blood Count 3.03 10^6/ul (4.00-5.40); Red Cell Distribution Width 14 % (10.5-15)
[2018-03-31] MEDS: Heparin VIAL(*) 5000 UNITS/ML VIAL (FIVE THOUSAND) SUBCUT SCH ×2 (06:09→14:48)
[2018-03-31] MEDS: CMCS:Pantoprazole TAB (NF) 40 MG TAB PO SCH (06:10)
[2018-03-31] MEDS: Tiotropium CAP.INH* CAP.INH/18 MCG (USE ORDER SET !) INH SCH (07:09)
[2018-03-31] MEDS: Mometasone/Formoter 200/5 MDI INH SCH (07:09)
[2018-03-31] MEDS: Aspirin EC TAB* 81 MG TAB.EC PO SCH (09:40)
[2018-03-31] MEDS: Clopidogrel TAB* 75 MG PO SCH (09:40)
[2018-03-31] MEDS: Carvedilol TAB* 3.125 MG PO SCH (09:41)
[2018-03-31] MEDS: Lactobacillus Acidophilus* 1 TAB PO SCH (09:41)
[2018-03-31] MEDS: Calcium Polycarbophil TAB* 625 MG PO SCH (09:41)
--- NOTE | 2018-03-31 10:27 | PN ---
Subjective Date of Service: 03/31/18 Interval History: Ms. Guerrero reports that she is feeling quite and she is ready for discharge. Family History: Unchanged from Admission Social History: Unchanged from Admission Past Medical History: Unchanged from Admission Objective Active Medications: Acetaminophen (Tylenol Tab*) 650 mg PO Q4H PRN Al Hydrox/Mg Hydrox/Simethicone (Maalox Plus*) 30 ml PO Q6H PRN Aspirin (Aspirin Ec Tab*) 81 mg PO QAM [facility] Calcium Polycarbophil (Fibercon Tab*) 1,250 mg PO BID [facility] Carvedilol (Coreg Tab*) 3.125 mg PO BID [facility] Clopidogrel Bisulfate (Plavix Tab*) 75 mg PO DAILY [facility] Heparin Sodium (Porcine) (Heparin Vial(*)) 5,000 units SUBCUT Q8HR [facility] Lactobacillus Rhamnosus (Lactobacillus Acidophilus*) 1 tab PO DAILY [facility] Lorazepam (Ativan Inj*) 1 mg IV Q2HR PRN Lorazepam (Ativan Tab(*)) 0.5 mg PO Q4H PRN Mometasone Furoate/Formoterol Fumar (Dulera 200/5 Mdi*) 2 puff INH BID [facility] Montelukast Sodium (Singulair Tab*) 10 mg PO QPM [facility] Morphine Sulfate (Morphine Inj ((Syringe))*) 1 mg IV Q2H PRN Pantoprazole Sodium (Protonix Tab (Nf)) 40 mg PO 0600 [facility] Polyethylene Glycol/Electrolytes (Miralax*) 17 gm PO DAILY PRN Polyethylene Glycol/Electrolytes (Miralax*) 17 gm PO EVERY OTHER DAY [facility] Tiotropium [place] (Spiriva Cap.Inh*) 1 cap INH QAM [facility] Vital Signs: Temp Pulse Resp BP Pulse Ox 97.9 F 72 18 130/65 98 03/31/18 08:03 03/31/18 08:03 03/31/18 08:03 03/31/18 08:03 03/31/18 08:03 Oxygen Devices in Use Now: None Appearance: Female lying in bed in NAD, daughter at bedside Eyes: No Scleral Icterus Ears/Nose/Mouth/Throat: Mucous Membranes Moist Neck: Trachea Midline Respiratory: Symmetrical Chest Expansion and Respiratory Effort, Clear to Auscultation Cardiovascular: NL Sounds; No Murmurs; No JVD, No Edema Extremities: No Edema Skin: No Rash or Ulcers Neurological: Alert and Oriented x 3, NL Muscle Strength and Tone Nutrition: Taking PO's Result Diagrams: 03/31/18 05:31 03/29/18 05:15 Assess/Plan/Problems-Billing Assessment: Mrs. Guerrero is an 87yo F with PMH of CAD, CKD stage 3-4, HTN, HLD, asthma, who presented to ED with c/o chest heaviness, found to have NSTEMI in setting of of . - Patient Problems (1) NSTEMI (non-ST elevated myocardial infarction) Comment: - Appreciate cardiology consult. - Thought to be secondary to Takutsubo's secondary to her husbands - Ms. Guerrero requests only medical management and declined a [facility]. Echo showing new LV dysfunction with EF 30% - Continue aspirin, Plavix, low dose beta fransisca, statin.. Heparin drip off - was on for 48 hours - Continue benzodiazepines for anxyolisis and Morphine for comfort. (2) Acute systolic heart failure Comment: - Resolved. Appears euvolemic. - EF 30-35% with mod TR and mod pulmonary hypertension - Continue coreg, ARB discontinued due to hypotension (3) HLD (hyperlipidemia) Comment: - Resume simvastatin. (4) HTN (hypertension) Comment: - BP 90-120s - Continue coreg. (5) CKD (chronic kidney disease) stage 4, GFR 15-29 ml/min Comment: - at baseline (6) DVT prophylaxis Comment: - Heparin SQ (7) DNR (do not resuscitate) Comment: Status and Disposition: Inpatient. Discharge to home.
[2018-03-31 11:58] VITALS: BP 120/57
--- NOTE | 2018-04-03 04:30 | DS ---
CC: Dr. James; Dr. Dillard * HOSPITAL MEDICINE DISCHARGE SUMMARY: DATE OF ADMISSION: 03/25/18 DATE OF DISCHARGE: 03/31/18 PRIMARY CARE PHYSICIAN: Dr. James. POLICE SURGEON: Dr. Dillard. ATTENDING PHYSICIAN: Dr. Jann Gunderson * (dictation provided by Winsome Rust NP). PRIMARY DIAGNOSES: 1. Non-ST elevation myocardial infarction. 2. 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 SECONDARY DIAGNOSES: 1. History of coronary artery disease with myocardial infarction. 2. Chronic kidney disease, stage 3 to 4. 3. Hypertension. 4. Hyperlipidemia. 5. Asthma. 6. Gastroesophageal reflux disease. 7. Takotsubo's cardiomyopathy. MEDICATIONS AT THE TIME OF DISCHARGE: 1. Montelukast 10 mg p.o. q.p.m. 2. Simvastatin 10 mg p.o. q.p.m. 3. Polyethylene glycol 17 g p.o. every other day. 4. Omeprazole 20 mg p.o. q.a.m. 5. Tiotropium 1 puff inhaled q.a.m. 6. Bifidobacterium infantis 4 mg p.o. q.a.m. 7. Aspirin 81 mg p.o. q.a.m. 8. Fluticasone/salmeterol 250/50 one puff inhaled b.i.d. 9. Calcium polycarbophil 2 caps p.o. b.i.d. 10. Clopidogrel 75 mg p.o. daily (new medication). 11. Carvedilol 3.125 mg p.o. b.i.d. (new dose). Discontinue spironolactone and valsartan/hydrochlorothiazide until follow up with Dr. Dillard. HOSPITAL COURSE: Ms. Guerrero is an 87-year-old female with past medical history as outlined above, who originally presented to the hospital on 03/25/18 with concern for chest heaviness. Please see the dictated H and P from Jann Pretty MD, for complete details. In brief, the patient had just admitted her elderly to the hospital for pneumonia. Her quickly deteriorated and went onto comfort care. The following day, he . Within an hour of that, the patient was complaining of chest pain with mild shortness of breath and mild nausea. For that reason, she was evaluated and recommended to go to the emergency room. In the emergency room, she had labs, which showed a first troponin of 1.50. This ended up being her peak troponin level. She had an EKG, which showed a sinus rhythm with a heart rate of 80 with no evidence of acute ischemia. She had a chest, abdomen and pelvis CT, which showed "chronic lung findings. Noncontrast imaging demonstrates no evidence of displaced intimal calcifications to suggest dissection, small ulcerated lesion, infrarenal abdominal aorta appearing unchanged, and bilateral renal cysts." Ms. Guerrero was admitted to the hospital for suspected non-ST elevation MT and possible Takotsubo's cardiomyopathy. She was seen in consultation by Dr. Kaveh Escamilla. I refer you to his note for complete details, but in brief, extensive discussions were undertaken with the patient and her family and the patient wished for medical management only. Dr. Escamilla recommended that the patient continue on low dose beta blockade and to use anxiolytics for her emotional stress to avoid catecholamine surge. The patient was also continued on statin and aspirin. She was initially provided with heparin drip for the first 48 hours. Her valsartan/hydrochlorothiazide and spironolactone were held. Ms. Guerrero has done quite well. Again, as stated, her troponin peaked at 1.50. She has remained chest pain free. She has been transitioned off the heparin drip onto Plavix in addition to the above regimen. She is ambulating in the hallway with walker with steady gait and is not hypoxic. She has been evaluated by Physical Therapy and deemed to be also safe with ambulating stairs , which would be required for her to return home. Ms. Guerrero is medically stable to return home. She will be following up closely with Dr. James and then with Dr. Dillard regarding continued adjustment and refinement of her medication list for medical management of coronary artery disease and hypertension. DISCHARGE CONDITION: Ms. Guerrero is medically stable for discharge to home. DISPOSITION: Home. DIET: Low-fat, low-salt. ACTIVITY: As tolerated with referral to cardiac rehab. FOLLOWUP PLANS: 1. Please follow up with Dr. James. An appointment has been made for 04/06/18. 2. Please follow up with Dr. Dillard. The patient is to call for an appointment within the next 4 to 6 weeks. TIME SPENT: Approximately 60 minutes were spent on the discharge of this patient, more than half the time was spent with the patient at the bedside reviewing the events leading up to this hospitalization and during this hospitalization, performing the physical examination, and reviewing the plan of care. WINSOME RUST NP [id number]/[facility] #: [id number] DARREN
== END 2018-03-31 16:29 | disposition home health service (06) | DRG 280 ==
LOC: ED 22:50 → MEDTELE 22:54 → OBSVTOIN 03-26 08:41 → MEDTELE 03-26 14:37 → ICU 03-27 06:51 → MEDTELE 03-28 10:20
PROVIDERS: ADMIT Hospitalist; ATTEND Internal Medicine
DX: I21.4 Non-ST elevation (NSTEMI) myocardial infarction (principal); I50.21 Acute systolic (congestive) heart failure; J96.01 Acute respiratory failure with hypoxia; I51.81 Takotsubo syndrome; N18.4 Chronic kidney disease, stage 4 (severe); I13.0 Hypertensive heart and chronic kidney disease with heart failure and stage 1 through stage 4 chronic kidney disease, or unspecified chronic kidney disease; I25.10 Atherosclerotic heart disease of native coronary artery without angina pectoris; E78.5 Hyperlipidemia, unspecified; N28.1 Cyst of kidney, acquired; J45.909 Unspecified asthma, uncomplicated; K21.9 Gastro-esophageal reflux disease without esophagitis; Z66 Do not resuscitate; J44.9 Chronic obstructive pulmonary disease, unspecified; K57.90 Diverticulosis of intestine, part unspecified, without perforation or abscess without bleeding; I27.20 Pulmonary hypertension, unspecified; I87.8 Other specified disorders of veins; I95.9 Hypotension, unspecified; I08.1 Rheumatic disorders of both mitral and tricuspid valves; M06.9 Rheumatoid arthritis, unspecified; M16.0 Bilateral primary osteoarthritis of hip; Z96.1 Presence of intraocular lens; Z88.0 Allergy status to penicillin; Z88.2 Allergy status to sulfonamides; Z98.42 Cataract extraction status, left eye; Z98.41 Cataract extraction status, right eye; Z90.710 Acquired absence of both cervix and uterus; Z79.82 Long term (current) use of aspirin; Z79.02 Long term (current) use of antithrombotics/antiplatelets; Z91.041 Radiographic dye allergy status; Z88.8 Allergy status to other drugs, medicaments and biological substances; Z87.891 Personal history of nicotine dependence; Z72.89 Other problems related to lifestyle; Z88.1 Allergy status to other antibiotic agents
CPT/HCPCS: 36415; 71250; 74176; 80048; 80053; 82565; 84484; 84520; 85025; 85730; 93005; 93306; 94640; 99283; A9270-GY; C8929; G8978-GP-CI; G8978-GP-CK; G8979-GP-CI; G8980-GP-CI; G8987-GO-CJ; G8988-GO-CI; J1644; J2060; J2270

== ENCOUNTER 2018-04-28 14:04 | Inpatient (IN) | payer MEDICARE ==
[2018-04-28 17:18] LABS: ABS Basophils 0 10^3/ul (0-0.2); ABS Eosinophils 0.4 10^3/ul (0-0.6); ABS Lymphocytes 1.2 10^3/ul (1.0-4.8); ABS Monocytes 0.6 10^3/ul (0-0.8); ABS Neutrophils 4.9 10^3/ul (1.5-7.7); ABS Nucleated RBC 0 10^3/ul; Eosinophil % 6.1 % (0-6); Hematocrit 34 % (35-47); Hemoglobin 11.6 g/dl (12.0-16.0); Lymphocyte % 16.5 % (25-47); Mean Corpuscular HGB Conc 34 g/dl (31-36); Mean Corpuscular Hemoglobin 31 pg (27-31); Mean Corpuscular Volume 90 fL (80-97); Mean Platelet Volume 6.5 um3 (7.4-10.4); Nucleated Red Blood Cells % 0.2; Platelet Count 175 10^3/ul (150-450); Red Blood Count 3.82 10^6/ul (4.00-5.40); Red Cell Distribution Width 15 % (10.5-15); White Blood Count 7.2 10^3/ul (3.5-10.8)
[2018-04-28 17:24] LABS: INR 0.94 (0.77-1.02)
[2018-04-28 17:30] LABS: EGFR Non-African American 41.3 (>60)
--- NOTE | 2018-04-28 17:44 | RAD ---
Indication: Headache. Altered mental status. Comparison: No relevant prior exams available on the [facility] [place] for comparison. Technique: Noncontrast CT vertex of skull through foramen magnum. Report: Mild prominence of the cerebral sulci reflecting atrophy. Unremarkable ventricles and basal cisterns. Negative for severino matter white matter obscuration, intra or extra-axial hemorrhage, or mass effect. Unremarkable orbital contents. Large vessel atherosclerotic calcifications at the skull base. Unremarkable bony calvarium and skull base. Clear visualized paranasal sinuses and mastoid air spaces. Unremarkable scalp. IMPRESSION: #. Mild involutional change. #. No acute intracranial process evident.
--- NOTE | 2018-04-28 18:56 | ED ---
Neurological HPI - HPI Summary HPI Summary: Patient is a 87 y/o F w/ c/o confusion and memory loss onsetting today at about 1315. Upon arrival, patient was noted to have 202/94 BP and in the room 212/127 BP. Patient denies chest pain at present but notes some chest heaviness earlier. She also reports a MUNOZ located "above her forehead" which onset an hour ago while she was in the ED. Patient was at her 's service today and was very tearful and emotional about the experience. Upon arriving at home at around 1315, patient's children noted that she was acting confused and appeared to be experiencing memory loss. They called Dr. James and were referred to ED. Children report that she has Hx of present Sx when she is undergoing stressful experiences and note a similar episode 5 years ago when was ill. On triage, pain is rated 3/10, nothing else is noted to aggravate/ alleviate Sx, and there was no treatment prior to ED. Home medications and allergies are noted. - History of Current Complaint Chief Complaint: EDAltMentalStatus Stated Complaint: CONFUSION Time Seen by Provider: 04/28/18 16:40 Hx Obtained From: Patient Onset/Duration: Started hours ago - onset 1315, Still Present Current Severity: Mild - 3/10 Headache Location: Frontal - above forehead Pain Intensity: 3 Pain Scale Used: 0-10 Numeric - 3/10 Aggravating: Stress Alleviating: Nothing Associated Signs and Symptoms: Positive: Headache - frontal, above forehead, Memory Loss, Confusion, Chest Pain - heaviness, Emotional Distress - Additional Pertinent History Primary Care Physician: [id number] - Allergy/Home Medications Allergies/Adverse Reactions: Allergies Allergy/AdvReac Type Severity Reaction Status Date / Time Iodinated Contrast- Oral and Allergy Intermediate Rash Verified 03/26/18 00:49 IV Dye iodine Allergy Intermediate Rash Verified 04/28/18 14:19 tramadol Allergy Unknown Verified 04/28/18 14:19 Reaction Details amoxicillin [From Augmentin] AdvReac Severe mouth sores Verified 04/28/18 14:19 clavulanic acid AdvReac Severe mouth sores Verified 04/28/18 14:19 [From Augmentin] sulfamethoxazole AdvReac Severe vomiting, Verified 04/28/18 14:19 [From Bactrim] nausea trimethoprim [From Bactrim] AdvReac Severe vomiting, Verified 04/28/18 14:19 nausea Home Medications: Home Medications Norvasc 2.5 mg tab 2.5 mg PO DAILY 04/28/18 [History Confirmed 04/28/18] PMH/Surg Hx/FS Hx/Imm Hx Cardiovascular History: Reports: Hx Cardiac Arrest - 20 years ago, Hx Coronary Artery Disease, Hx Hypertension, Other Cardiovascular Problems/Disorders - hypercholesterolemia Denies: Hx Pacemaker/ICD Respiratory History: Reports: Hx Asthma, Hx Chronic Obstructive Pulmonary Disease (COPD), Hx Seasonal Allergies GI History: Reports: Hx Diverticulosis, Hx Gastroesophageal Reflux Disease - on meds, Other GI Disorders - diverticulitis HX of Musculoskeletal History: Reports: Hx Arthritis - RA,OSTEOARTHRITS BILAT HIPS Sensory History: Reports: Hx Cataracts - bilateral, Hx Contacts or Glasses - for reading, Hx Vision Problem Denies: Hx Hearing Aid Opthamlomology History: Reports: Hx Cataracts - bilateral, Hx Contacts or Glasses - for reading, Hx Vision Problem Psychiatric History: Denies: Hx Panic Disorder - Cancer History Hx Chemotherapy: No Hx Radiation Therapy: No - Surgical History Surgery Procedure, Year, and Place: tonsillectomy as a child. hysterectomy [facility] umbilical hernia repair [facility]. left inguinal hernia repair. bilateral cataract extractions with IOL's. 06/2017 biopsy left cheek. 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 Hx Anesthesia Reactions: No Infectious Disease History: No Infectious Disease History: Reports: Hx Clostridium Difficile Denies: Hx of Known/Suspected MRSA, Hx Shingles, Hx Tuberculosis, Traveled Outside the [place] in Last 30 Days - Family History Known Family History: Positive: Unknown - adopted - Social History Alcohol Use: Occasionally Substance Use Type: Reports: None Hx Tobacco Use: Yes Smoking Status (MU): Former Smoker Amount Used/How Often: 1/2 ppd for 40 years Review of Systems Positive: Other - chest heaviness, high BP Neurological: Other - memory loss, confused Positive: Headache All Other Systems Reviewed And Are Negative: Yes Physical Exam - Summary Physical Exam Summary: Appearance: The patient is well-nourished in no acute distress and in no acute pain. Skin: The skin is warm and dry and skin color reflects adequate perfusion. HEENT: The head is normocephalic and atraumatic. The pupils are equal and reactive. The conjunctivae are clear and without drainage. Nares are patent and without drainage. Mouth reveals moist mucous membranes and the throat is without erythema and exudate. The external ears are intact. The ear canals are patent and without drainage. The tympanic membranes are intact. Neck: The neck is supple with full range of motion and non-tender. There are no carotid bruits. There is no neck vein distension. Respiratory: Chest is non-tender. Lungs are clear to auscultation and breath sounds are symmetrical and equal. Cardiovascular: Heart is regular rate and rhythm. There is no murmur or rub auscultated. There is no peripheral edema and pulses are symmetrical and equal. Abdomen: The abdomen is soft and non-tender. There are normal bowel sounds heard in all four quadrants and there is no organomegaly palpated. Musculoskeletal: There is no back tenderness noted. Extremities are non-tender with full range of motion. There is good capillary refill. There is no peripheral edema or calf tenderness elicited. Neurological: Patient is alert and oriented to person, place and time. The patient has symmetrical motor strength in all four extremities. Cranial nerves are grossly intact. Deep tendon reflexes are symmetrical and equal in all four extremities. GCS 15 Psychiatric: The patient has a labile affect and does not exhibit any anxiety or depression. Triage Information Reviewed: Yes Vital Signs On Initial Exam: Initial Vitals Temp Pulse Resp BP Pulse Ox 98.5 F 68 16 135/65 97 04/28/18 14:11 04/28/18 14:11 04/28/18 14:11 04/28/18 14:11 04/28/18 14:11 Vital Signs Reviewed: Yes Diagnostics - Vital Signs Vital Signs Temp Pulse Resp BP Pulse Ox 04/28/18 17:00 89 96 04/28/18 16:43 95 212/127 95 04/28/18 16:15 98.7 F 92 18 202/94 97 04/28/18 14:11 98.5 F 68 16 135/65 97 - Laboratory Lab Results: Lab Results 04/28/18 04/28/18 04/28/18 Range/Units 17:01 17:01 17:01 WBC 7.2 (3.5-10.8) 10^3/ul RBC 3.82 L (4.00-5.40) 10^6/ul Hgb 11.6 L (12.0-16.0) g/dl Hct 34 L (35-47) % MCV 90 (80-97) fL MCH 31 (27-31) pg MCHC 34 (31-36) g/dl RDW 15 (10.5-15) % Plt Count 175 (150-450) 10^3/ul MPV 6.5 L (7.4-10.4) um3 Neut % (Auto) 68.0 (38-83) % Lymph % (Auto) 16.5 L (25-47) % [place] % (Auto) 8.8 H (0-7) % Eos % (Auto) 6.1 H (0-6) % Baso % (Auto) 0.6 (0-2) % Absolute Neuts (auto) 4.9 (1.5-7.7) 10^3/ul Absolute Lymphs (auto) 1.2 (1.0-4.8) 10^3/ul Absolute Monos (auto) 0.6 (0-0.8) 10^3/ul Absolute Eos (auto) 0.4 (0-0.6) 10^3/ul Absolute Basos (auto) 0 (0-0.2) 10^3/ul Absolute Nucleated RBC 0 10^3/ul Nucleated RBC % 0.2 INR (Anticoag Therapy) 0.94 (0.77-1.02) Sodium 141 (135-145) mmol/L Potassium 4.2 (3.5-5.0) mmol/L Chloride 110 (101-111) mmol/L Carbon Dioxide 24 (22-32) mmol/L Anion Gap 7 (2-11) mmol/L BUN 26 H (6-24) mg/dL Creatinine 1.23 H (0.51-0.95) mg/dL Est GFR ( Amer) 50.0 (>60) Est GFR (Non-Af Amer) 41.3 (>60) BUN/Creatinine Ratio 21.1 H (8-20) Glucose 95 (70-100) mg/dL Lactic Acid (0.5-2.0) mmol/L Calcium 8.9 (8.6-10.3) mg/dL Total Bilirubin 0.70 (0.2-1.0) mg/dL AST 19 (13-39) U/L ALT 11 (7-52) U/L Alkaline Phosphatase 68 (34-104) U/L Troponin I 0.65 H* (<0.04) ng/mL Total Protein 6.5 (6.4-8.9) g/dL Albumin 3.9 (3.2-5.2) g/dL Globulin 2.6 (2-4) g/dL Albumin/Globulin Ratio 1.5 (1-3) TSH 3.19 (0.34-5.60) mcIU/mL 04/28/18 Range/Units 17:01 WBC (3.5-10.8) 10^3/ul RBC (4.00-5.40) 10^6/ul Hgb (12.0-16.0) g/dl Hct (35-47) % MCV (80-97) fL MCH (27-31) pg MCHC (31-36) g/dl RDW (10.5-15) % Plt Count (150-450) 10^3/ul MPV (7.4-10.4) um3 Neut % (Auto) (38-83) % Lymph % (Auto) (25-47) % [place] % (Auto) (0-7) % Eos % (Auto) (0-6) % Baso % (Auto) (0-2) % Absolute Neuts (auto) (1.5-7.7) 10^3/ul Absolute Lymphs (auto) (1.0-4.8) 10^3/ul Absolute Monos (auto) (0-0.8) 10^3/ul Absolute Eos (auto) (0-0.6) 10^3/ul Absolute Basos (auto) (0-0.2) 10^3/ul Absolute Nucleated RBC 10^3/ul Nucleated RBC % INR (Anticoag Therapy) (0.77-1.02) Sodium (135-145) mmol/L Potassium (3.5-5.0) mmol/L Chloride (101-111) mmol/L Carbon Dioxide (22-32) mmol/L Anion Gap (2-11) mmol/L BUN (6-24) mg/dL Creatinine (0.51-0.95) mg/dL Est GFR ( Amer) (>60) Est GFR (Non-Af Amer) (>60) BUN/Creatinine Ratio (8-20) Glucose (70-100) mg/dL Lactic Acid 0.6 (0.5-2.0) mmol/L Calcium (8.6-10.3) mg/dL Total Bilirubin (0.2-1.0) mg/dL AST (13-39) U/L ALT (7-52) U/L Alkaline Phosphatase (34-104) U/L Troponin I (<0.04) ng/mL Total Protein (6.4-8.9) g/dL Albumin (3.2-5.2) g/dL Globulin (2-4) g/dL Albumin/Globulin Ratio (1-3) TSH (0.34-5.60) mcIU/mL Result Diagrams: 04/28/18 17:01 04/28/18 17:01 Lab Statement: Any lab studies that have been ordered have been reviewed, and results considered in the medical decision making process. - CT Brain CT CT Interpretation: No Acute Changes CT Interpretation Completed By: Radiologist - mild involutional change, no acute intracranial process evident; this report was reviewed by ED physician. - EKG 1716 Cardiac Rate: NL - rate of 85 BPM EKG Rhythm: Sinus Rhythm EKG Interpretation: biphasic T-wave in ant lat leads which are nonspecific EKG Comparison: No Significant Change - consistent with EKG from 04/11 NIH Scale - NIH Scale Level of Consciousness: Alert/Keenly Responsive Ask Patient the Month and His/Her Age: Both Correct Ask Pt to Open/Close Eyes and Farmhand/Release Non-Paretic Hand: Both Correctly Best Gaze (Only Horizontal Eye Movement): Normal Visual Field Testing: No Visual Loss Facial Paresis-Pt to Smile & Close Eyes or Grimace Symmetry: Normal/Symmetrical Motor Function - Right Arm: No Drift-Holds 10 Seconds Motor Function - Left Arm: No Drift-Holds 10 Seconds Motor Function - Right Leg: No Drift-Holds 10 Seconds Motor Function - Left Leg: No Drift-Holds 10 Seconds Limb Ataxia-Must be out of Proportion to Weakness Present: Absent Sensory (Use Pinprick to Test Arms/Legs/Trunk/Face): Normal Best Language (Describe Picture, Name Items): No Aphasia Dysarthria (Read Several Words): Normal Extinction and Inattention: No Abnormality Total Score: 0 Re-Evaluation - Re-Evaluation First Eval Re-Evaluation Time: 18:00 Comment: Discussed plan to admit patient with patient and her family, they are agreeable Course/Dx - Diagnoses Provider Diagnoses: NSTEMI (non-ST elevated myocardial infarction), Altered mental status - Physician Notifications Discussed Care Of Patient With: Edi Pop Time Discussed With Above Provider: 16:56 Instructed by Provider To: Other - Dr. Pop was consulted on patient's case at 16:56. Dr. Felder and Dr. Pop agree on plan of treatment. 1751: Dr. Jacobson was consulted on patient's case. He accepts patient for admission to [facility] [place]. Discharge - Sign-Out/Discharge Documenting (check all that apply): Patient Departure - admit Signing out patient TO: Damian Jacobson Receiving patient FROM: Willy Felder - Discharge Plan Condition: Fair Disposition: ADMITTED TO [facility] Referrals: Aman James MD [Primary Care Provider] - - Attestation Statements Document Initiated by Scribe: Yes Documenting Scribe: Watson Mora Provider For Whom Scribe is Documenting (Include Credential): Willy Felder MD Scribe Attestation: IWatson, scribed for Willy Felder MD on 04/28/18 at 1910.
[2018-04-28] MEDS ORDERED: Carvedilol TAB* 6.25 MG PO ONE (19:47)
[2018-04-28] MEDS ORDERED: Metoprolol Tartrate IV* 1 MG/ML 5 ML VIAL IV PRN (19:47)
[2018-04-28] MEDS ORDERED: Al Hydrox/Mg Hydrox/Simet LIQ* 30 ML UDC PO PRN (19:56)
[2018-04-28] MEDS ORDERED: Acetaminophen TAB* 325 MG PO PRN (20:03)
[2018-04-28] MEDS ORDERED: Polyethylene Glycol 3350* 17 GM PACKET PO SCH (21:00)
[2018-04-28] MEDS ORDERED: Carvedilol TAB* 3.125 MG PO SCH (21:00)
[2018-04-28] MEDS: Calcium Polycarbophil TAB* 625 MG PO SCH (22:24)
[2018-04-28] MEDS: Heparin VIAL(*) 5000 UNITS/ML VIAL (FIVE THOUSAND) SUBCUT SCH (22:24)
[2018-04-28] MEDS: Mometasone/Formoter 200/5 MDI INH SCH (23:16)
--- NOTE | 2018-04-29 01:35 | HP ---
AMENDED REPORT NOW INCLUDES COSIGNER DESIGNATION - ESIGNED BEFORE ADJUSTMENT CC: Dr. James * HISTORY AND PHYSICAL: DATE OF ADMISSION: 04/28/18 PROVIDER: Nivia Keen NP. PRIMARY CARE PROVIDER: Dr. James. ATTENDING PHYSICIAN WHILE IN THE HOSPITAL: Dr. Savannah Fleming * (dictated by Nivia Keen NP). CHIEF COMPLAINT: 1. Confusion. 2. Chest pain. HISTORY OF PRESENT ILLNESS: Ms. Guerrero is an 87-year-old female with a past medical history significant for coronary artery disease, NC, chronic kidney disease stage 4, hypertension, hyperlipidemia, asthma, GERD, who presented to the emergency room from her doctor's office with a complaint of sudden onset of confusion after being at [facility] service for her late today. The daughter states that approximately at 1:05 the patient developed a sudden onset of confusion, questioning whether her had passed or not and was confused about events of the day. She had been very stressed throughout the day as she has been attending [employer] service for her . The daughter reports that this episode of confusion was very similar to an event that happened approximately 5 to 6 years ago when she had a stressful encounter where her had significant head injury and was in the hospital. The patient reports that she also while awaiting in the waiting room developed some chest heaviness across her upper chest that came and went. Upon examination, the patient reports that her chest pain is gone. She denied any diaphoresis. She denied any shortness of breath. She denies any recent illness, fever, chills, nausea, vomiting. She denied any diarrhea or abdominal pain. Denied any cough, congestion, or shortness of breath. She denied any hemoptysis. Denied any hematuria or dysuria. While in the emergency room, she had routine lab work drawn. Her troponin was found to be elevated at 0.65. The patient remains mildly confused to the events of today, but is oriented to person, place, and time and is able to actively communicate her needs and give information about her medical history. The patient reports that she was very stressed today about attending her 's graveside service and that has been a very difficult day for her. She is very tearful during the interview for her admission. Given her complaint of sudden onset of confusion and upper chest heaviness, we were asked to see and evaluate for admission. PAST MEDICAL HISTORY: Significant for: 1. Coronary artery disease with NC. 2. Chronic kidney disease stage 4. 3. Hypertension. 4. Hyperlipidemia. 5. Asthma. 6. GERD. 7. Recent history of non-STEMI in February 2018. PAST SURGICAL HISTORY: 1. Hysterectomy. 2. Appendectomy. 3. Umbilical and right inguinal hernia repair. 4. Bilateral cataract surgery. 5. Tonsillectomy. HOME MEDICATIONS: 1. Align 4 mg p.o. q.a.m. 2. Aspirin 81 mg p.o. daily. 3. MiraLAX 17 g p.o. every other day. 4. Omeprazole 20 mg p.o. q.a.m. 5. Singulair 10 mg q.p.m. 6. Advair 1 puff b.i.d. 7. Clopidogrel 75 mg p.o. daily. 8. Carvedilol 3.125 mg p.o. b.i.d. 9. Fiber 2 caps p.o. b.i.d. 10. Spiriva 1 puff q.a.m. 11. Simvastatin 10 mg p.o. q.p.m. 12. Norvasc 2.5 mg p.o. daily. ALLERGIES: She has allergy to IODINE CONTRAST ORAL and IV DYE IODINE, TRAMADOL , AMOXICILLIN, AUGMENTIN, BACTRIM. REVIEW OF SYSTEMS: There is no documented fever. There has been no significant weight change. There was no double vision. There has been no ear discharge. No rhinorrhea. No sore throat. She does report an episode of chest pain while in the waiting room that has subsided. She denies any orthopnea or nocturnal dyspnea. There is no abdominal pain. No nausea or vomiting. No diaphoresis. Denies any dysuria or urinary frequency. No seizure. No loss of consciousness. No pruritus or skin ulcerations. Review of 14 systems was completed and all others were negative. PHYSICAL EXAMINATION GENERAL: At this time, Ms. Guerrero is an 87-year-old female. She appears tearful , resting on the stretcher in the emergency room. She does not appear to be in any acute distress. VITAL SIGNS: Blood pressure was 183/94, heart rate is 77, respirations were 15 , O2 saturation was 96% on room air, temperature was 98.3. HEENT: Head is atraumatic and normocephalic. Eyes: EOMs are intact. Sclerae anicteric and not pale. Oral mucosa appear to be moist. NECK: Supple. LUNGS: Clear to auscultation bilaterally. No wheezes, rales, or rhonchi. CARDIAC: S1 and S2. Regular rate and rhythm. There is no murmurs, rubs, or gallop. ABDOMEN: Soft and nontender. Bowel sounds are present x4. EXTREMITIES: Pulses are +2 bilaterally. She does have mild lower extremity edema. She is able to move all 4 extremities with 5/5 strength. NEUROLOGIC: She is awake, alert, oriented x3. Hand clinical laboratory manager were equal. Tongue is midline. Speech is clear. Cranial nerves II through XII are intact. Finger -to- nose is intact. Soft palate rises equally. There is no sensation deficit. No gross focal deficits are seen. She does have some confusion to today's events, but again is alert to person, place, and time. SKIN: Intact. She does have ecchymotic areas noted to bilateral upper arms and lower extremities. DIAGNOSTIC STUDIES AND LABORATORY DATA: WBCs are 7.2, RBCs 3.82, hemoglobin 11.6, hematocrit was 34, platelet count was 175. INR was 0.94. Sodium 141, potassium 4.2, chloride 110, carbon dioxide was 24, anion gap was 7, BUN was 26 , creatinine 1.23, glucose was 95. Lactic acid was 0.6. Calcium 8.9. Troponin was initially 0.65, repeat troponin was 0.75. TSH was 3.19. CT of the brain, radiologist's impression: 1. Mild involutional changes. 2. No acute intracranial process is evident. She had an electrocardiogram, which showed T wave inversions in leads 3 through 6. She was in sinus rhythm at a rate of 85. ASSESSMENT AND PLAN: Ms. Guerrero is an 87-year-old female patient who presented to the emergency room from Dr. James's office with complaint of sudden onset of confusion after a stressful event of graveside service for her today and an episode of upper chest pain. She will be admitted inpatient for: 1. Chest pain. 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 She does have some T wave inversions in the septal and lateral leads in V3 through 6. She does have elevated troponin of 0.65 and 0.75. I will continue her on aspirin, her beta-fransisca and Plavix 75 mg p.o. daily. Cardiology was consulted, anticoagulation will be held at this time per Cardiology's recommendation. We will continue to trend her troponins. I will obtain a lipid profile for the morning and repeat a CBC and a BMP. Further recommendations per Cardiology. 2. Confusion. I suspect this could be related to possible cerebrovascular accident, but less likely, more likely related to psychiatric issue as she did go through a very stressful event today or could also be related to PRES syndrome from hypertension. We will do neuro checks q. 2 hours and will control her blood pressure. As she is hypertensive at this time, we will increase her Coreg to 6.25 mg and give a dose now. I will also add Lopressor 5 mg q. 6 hours IV as needed for blood pressure greater than 180 with holding parameters. 3. Hypertension. We will continue her on her Norvasc and Coreg. Coreg dose was increased to 6.25 and give a dose now. I will also add Lopressor 5 mg q. 6 hours as needed for systolic blood pressure greater than 180 with holding parameters. 4. Asthma. We will continue her on her Advair, Spiriva, and Singulair. 5. Gastroesophageal reflux disease. We will continue her omeprazole. 6. FEN: She will be placed on a heart healthy, decaf okay diet. 7. Code status: She is a do not resuscitate, do not intubate. 8. DVT prophylaxis: I will give her heparin 5000 units subcu q. 8 hours. 9. Disposition: She will be placed inpatient on telemetry. TIME SPENT: Time spent on this admission was 60 minutes, greater than half of that time was spent [id number] with the patient obtaining my history and physical, the other half of the time was spent going over my plan of care and implementing my plan of care. I have discussed this with my attending, Dr. Savannah Fleming. She is in agreement with my plan. NIVIA CONNIE, FUR FARMER [id number]/[facility] #: [id number] DARREN
[2018-04-29 05:44] LABS: ABS Basophils 0 10^3/ul (0-0.2); ABS Eosinophils 0.4 10^3/ul (0-0.6); ABS Monocytes 0.5 10^3/ul (0-0.8); ABS Neutrophils 2.7 10^3/ul (1.5-7.7); ABS Nucleated RBC 0 10^3/ul; Eosinophil % 7.8 % (0-6); Hematocrit 29 % (35-47); Lymphocyte % 21.4 % (25-47); Mean Corpuscular HGB Conc 35 g/dl (31-36); Mean Corpuscular Hemoglobin 31 pg (27-31); Mean Corpuscular Volume 89 fL (80-97); Mean Platelet Volume 6.9 um3 (7.4-10.4); Nucleated Red Blood Cells % 0.1; Platelet Count 151 10^3/ul (150-450); Red Blood Count 3.25 10^6/ul (4.00-5.40); Red Cell Distribution Width 15 % (10.5-15); White Blood Count 4.6 10^3/ul (3.5-10.8)
[2018-04-29 06:00] LABS: EGFR Non-African American 39.1 (>60)
[2018-04-29] MEDS: Heparin VIAL(*) 5000 UNITS/ML VIAL (FIVE THOUSAND) SUBCUT SCH ×3 (06:04→21:19)
[2018-04-29] MEDS: Mometasone/Formoter 200/5 MDI INH SCH ×2 (07:23→20:08)
[2018-04-29] MEDS: Tiotropium CAP.INH* CAP.INH/18 MCG (USE ORDER SET !) INH SCH (07:24)
--- NOTE | 2018-04-29 08:51 | CONSULT ---
Subjective Date of Service: 04/29/18 Interval History: Date of admission 04/28/2018 Service: Hospitalist PMD: Dr. James Front Office Manager: Dr Dillard CC: Confusion, chest discomfort Reason for consult: ACS-like presentation HPI: Analilia Guerrero is an 87 year old woman with a pmhx as below. She is accompanied by her son in law. She was admitted last month with an ACS-like presentation in the settting of her husbands terminal illness and stress. She does have a history of definite takotsubo cardiomyopathy in 2014 with subsequent LVEF recovery. She did not undergo angiogram last month. I reviewed the echo images in detail, low level troponin level and EKG's. Her presentation was highly suggestive of recurrent takotsubo cardiomyopathy. Her beta-fransisca was decreased at discharge and her ARB was held. Yesterday was her husbands . She does not remember anything about the day or service at all. She was admitted with chest discomfort, confusion and found with an ACS-like presentation again with low level troponin and EKG changes and elevated BP. She is currently pain free. We discussed her presentation is likely related to recurrent takotsubo disease but a definite diagnosis would require a coronary angiogram to exclude obstructive CAD. She does not want to undergo an angiogram. She also wants to cancel her upcoming stress test. She would be agreeable to have a repeat echocardiogram in several weeks to see if her LV function recovers again. 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 Price: no sig. incomp v's, no DVT. Recommended comp stockings. C. Dificile Colitis - [phone] [facility] Surgical Hx: Tonsillectomy Hysterectomy - (1966) Hernia Repair - inguinal and umbilical Appendectomy - (1965) FH: No Current Problems, Rheumatoid Arthritis. Father: due to Unknown Causes. Mother: due to Unknown Causes. Siblings:None - adopted, no knowledge. 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 Personal Habits: Smoking: Patient is a former smoker - quit smoking in 2009.Cigarette Use: Former Cigarette Smoker - 30 year pack history.Alcohol: Occasionally consumes alcohol - (02/01/2018).Drug Use: Denies Drug Use.Daily Caffeine: Regular Coffee - Half a cup every morning.Exercise Type: Medications Active Medications: Acetaminophen (Tylenol Tab*) 650 mg PO Q4H PRN PRN Reason: FEVER/PAIN Last Admin: 04/29/18 03:52 Dose: 650 mg Al Hydrox/Mg Hydrox/Simethicone (Maalox Plus*) 30 ml PO Q6H PRN PRN Reason: INDIGESTION Amlodipine Besylate (Norvasc Tab*) 2.5 mg PO DAILY [facility] Aspirin (Aspirin Ec Tab*) 81 mg PO QAM [facility] Calcium Polycarbophil (Fibercon Tab*) 1,250 mg PO BID [facility] Last Admin: 04/28/18 22:24 Dose: 1,250 mg Carvedilol (Coreg Tab*) 12.5 mg PO BID [facility] Clopidogrel Bisulfate (Plavix Tab*) 75 mg PO DAILY [facility] Device (Tiotropium Inhaler Device*) 1 each INH 0900 ONE Stop: 04/29/18 09:01 Heparin Sodium (Porcine) (Heparin Vial(*)) 5,000 units SUBCUT Q8HR [facility] Last Admin: 04/29/18 06:04 Dose: 5,000 units Lactobacillus Rhamnosus (Lactobacillus Acidophilus*) 1 tab PO QAM [facility] Metoprolol Tartrate (Lopressor Iv*) 5 mg IV Q6H PRN PRN Reason: Blood Pressure SBP >180 Mometasone Furoate/Formoterol Fumar (Dulera 200/5 Mdi*) 2 puff INH BID [facility] Last Admin: 04/29/18 07:23 Dose: 2 inh Montelukast Sodium (Singulair Tab*) 10 mg PO QPM [facility] Pantoprazole Sodium (Protonix Tab (Nf)) 40 mg PO QAM [facility] Polyethylene Glycol/Electrolytes (Miralax*) 17 gm PO EVERY OTHER DAY [facility] Last Admin: 04/28/18 22:25 Dose: 17 gm Simvastatin (Zocor(Nf)) 10 mg PO QPM [facility] Tiotropium [place] (Spiriva Cap.Inh*) 1 cap INH QAM [facility] Last Admin: 04/29/18 07:24 Dose: 1 cap Home Medications: Montelukast Sodium TAB* [Singulair 10 MG TAB*] 10 mg PO QPM 02/05/13 [History Confirmed 04/28/18] Omeprazole CAP* [Prilosec CAP* 20 MG] 20 mg PO QAM 02/05/13 [History Confirmed 04/28/18] Tiotropium CAP.INH* [Spiriva CAP.INH*] 1 puff INH QAM 02/05/13 [History Confirmed 04/28/18] Aspirin EC TAB* [Ecotrin EC Low Dose 81 MG*] 81 mg PO QAM 05/12/15 [History Confirmed 04/28/18] Fluticasone-Salmeterol 250-50* [Advair Diskus 250-50*] 1 puff INH BID 05/12/15 [ History Confirmed 04/28/18] Bifidobacterium Infantis [Align] 4 mg PO QAM 03/09/17 [History Confirmed ] Polyethylene Glycol 3350* [Miralax*] 17 gm PO EVERY OTHER DAY 03/09/17 [History Confirmed 04/28/18] Simvastatin TAB(NF) [Zocor 10 MG (NF)] 10 mg PO QPM 03/09/17 [History Confirmed 04/28/18] Calcium Polycarbophil [Fiber] 2 cap PO BID 01/31/18 [History Confirmed 04/28/18] Carvedilol TAB* [Coreg TAB*] 3.125 mg PO BID #60 tab 03/31/18 [Rx Confirmed ] Clopidogrel TAB* [Plavix TAB*] 75 mg PO DAILY #30 tab 03/31/18 [Rx Confirmed ] Norvasc 2.5 mg tab 2.5 mg PO DAILY 04/28/18 [History Confirmed 04/28/18] Review of Systems - Measurements Intake and Output: Intake and Output Last 24 Hours 08/30/18 04/28/18 04/29/18 04/30/18 06:59 06:59 06:59 06:59 Intake Total 240 Output Total 300 Balance -60 Weight 110 lb 3.2 oz Intake: Oral 240 Output: Urine 300 Other: # Bowel Movements 0 # Voids 1 - Review of Systems Constitutional Symptoms: Negative: Weight Gain, Weight Loss Dermatology: Negative: Rash, Skin Lesions HEENT: Negative: Change in Hearing, Vertigo Eyes: Negative: Change in Vision, Double Vision Thyroid: Negative: Palpitations, Weight Loss, Weight Gain Pulmonary: Negative: Cough, Sputum, Hemoptysis Cardiology: Positive: Chest Pain Negative: Shortness of Breath, Palpitations, Peripheral Vascular Dis, Syncope , Claudication, Paroxysmal Nocturnal Dyspnea, Orthopnea Gastroenterology: Negative: Abdominal Pain, Nausea, Vomiting, Anorexia Genital - Urinary: Negative: Dysuria, Hematuria, Nocturia Musculoskeletal: Negative: Joint Pain, Joint Stiffness Endocrinology: Negative: Diabetes, Polydipsia, Polyuria Hematologic/Lymphatic: Positive: Use of Antiplatelet Drugs Negative: Use of Anticoagulant Neurology: Positive: Change in Memory Negative: Diplopia, Dizziness, Hx of Stroke\TIA Psychiatry: Negative: Unusual Anxiety, Suicidal Ideation Allergic/Immunologic: Negative: Hx HIV, Immunocompromise Review of Systems Statement: All other review of systems negative, unless stated above. Objective Vital Signs: Temp Pulse Resp BP Pulse Ox 97.6 F 77 14 159/81 96 04/29/18 03:59 04/29/18 03:59 04/29/18 03:59 04/29/18 03:59 04/29/18 03:59 Oxygen Devices in Use Now: None Appearance: nad, pleasant Ears/Nose/Mouth/Throat: Clear Oropharnyx Neck: NL Appearance and Movements; NL JVP, Trachea Midline Respiratory: Symmetrical Chest Expansion and Respiratory Effort, Clear to Auscultation Cardiovascular: NL Sounds; No Murmurs; No JVD, RRR, No Edema Abdominal: NL Sounds; No Tenderness; No Distention Extremities: No Edema Skin: No Rash or Ulcers Neurological: Alert and Oriented x 3 Laboratory Results: 04/29/18 05:19 04/29/18 05:19 INR (Anticoag Therapy) 0.94 (0.77-1.02) 04/28/18 17:01 Total Bilirubin 0.70 mg/dL (0.2-1.0) 04/28/18 17:01 AST 19 U/L (13-39) 04/28/18 17:01 ALT 11 U/L (7-52) 04/28/18 17:01 Alkaline Phosphatase 68 U/L (34-104) 04/28/18 17:01 Total Protein 6.5 g/dL (6.4-8.9) 04/28/18 17:01 Albumin 3.9 g/dL (3.2-5.2) 04/28/18 17:01 Globulin 2.6 g/dL (2-4) 04/28/18 17:01 Albumin/Globulin Ratio 1.5 (1-3) 04/28/18 17:01 Triglycerides 100 mg/dL 04/29/18 05:19 Cholesterol 121 mg/dL 04/29/18 05:19 LDL Cholesterol 62 mg/dL 04/29/18 05:19 HDL Cholesterol 38.6 mg/dL 04/29/18 05:19 TSH 3.19 mcIU/mL (0.34-5.60) 04/28/18 17:01 04/28/18 04/28/18 04/29/18 17:01 21:38 00:29 Troponin I 0.65 H* 0.75 H* 0.62 H* Diagnostic Imaging: Cardiac Testing: Echocardiogram - (03/27/2018): Akinesis of mid to apical segments with preserved basal function Echocardiogram - (01/13/2015) EF 50-55%, DD, RV dil, mod TR, PAPr 29 mmHg Echocardiogram - (10/30/2014) EF 35-40%, Echocardiogram - (02/06/2013) EF 60-65%, E to A reversal in the MV flow pattern suggestive of diastolic dysfunction. Trace MR, Mild-mod TR, moderate PHTN. Cardiac Procedures: Cardiac Catheterization - (10/31/2014) Diffuse mild coronary luminal irregularities with 50% stenosis seen in the mid LAB. Reduced LV function and EF of 40% with apical aneurysm consistent with Takotsubo. Mildly increased apical pressure. brain ct admission: no acute disease EKG Data: ekg 04/08/2017: NSR, LAD, otherwise unremarkable. ekg 03/27/18: NSR, LAD, IVCD, ischemic appearing T wave changes v3-v6, 1/aVL ekg 04/12/2018: NSR, much more pronounced deeply symmetric TWI across the precordium, 1/aVL and lead II ekg on admission: NSR, similar to the 03/27 ekg Assessment/Plan 1. Confusion and ACS-like presentation in setting of significant stress, suspect recurrent takotsubo. Type 1 [place] not definitively excluded. Recommendation uptitrate beta-fransisca (increased from 6.25 mg to 12.5 mg po bid this AM) continue other cardiac medications if remains pain free can be discharged tomorrow check echo in 3 weeks as an outpatient (will arrange) Thank you for allowing me to participate in the cardiovascular care of this patient. Please do not hesitate to contact me with questions or concerns.
[2018-04-29] MEDS ORDERED: Spiriva Inhaler DEVICE* 1 EACH DEVICE INH ONE (09:00)
[2018-04-29] MEDS ORDERED: Carvedilol TAB* 6.25 MG PO SCH (09:00)
[2018-04-29] MEDS: Calcium Polycarbophil TAB* 625 MG PO SCH ×2 (10:30→21:19)
[2018-04-29] MEDS: amLODIPine TAB* 5 MG PO SCH (10:30)
[2018-04-29] MEDS: Carvedilol TAB* 6.25 MG PO SCH ×2 (10:30→21:19)
[2018-04-29] MEDS: Lactobacillus Acidophilus* 1 TAB PO SCH (10:31)
[2018-04-29] MEDS: Aspirin EC TAB* 81 MG TAB.EC PO SCH (10:31)
[2018-04-29] MEDS: Clopidogrel TAB* 75 MG PO SCH (10:31)
[2018-04-29] MEDS: CMCS: Pantoprazole TAB (NF) 40 MG TAB PO SCH (10:31)
[2018-04-29 10:41] LABS: Urine Appearance Clear; Urine Blood 1+ (Negative); Urine Color Yellow; Urine Ketones Negative (Negative); Urine Protein Negative (Negative); Urine Red Blood Cell 1+(3-5/hpf) (Absent); Urine Specific Gravity 1.015 (1.010-1.030); Urine Urobilinogen Negative (Negative); Urine White Blood Cell 2+(11-20/hpf) (Absent)
--- NOTE | 2018-04-29 17:25 | PN ---
Subjective Date of Service: 04/29/18 Interval History: Pt is chest pain free today. She remember putting on clothing for the yesterday but otherwise nothing about yesterday. Had potential episode of transient global amnesia back in 2011. Decided with Dr. Jensen to not pursue [facility] and canceled her upcoming stress test in [address] Dillard. Denies SOB, dysuria, abdominal pain, fevers, chills. Objective Active Medications: Acetaminophen (Tylenol Tab*) 650 mg PO Q4H PRN PRN Reason: FEVER/PAIN Last Admin: 04/29/18 03:52 Dose: 650 mg Al Hydrox/Mg Hydrox/Simethicone (Maalox Plus*) 30 ml PO Q6H PRN PRN Reason: INDIGESTION Amlodipine Besylate (Norvasc Tab*) 2.5 mg PO DAILY [facility] Last Admin: 04/29/18 10:30 Dose: 2.5 mg Aspirin (Aspirin Ec Tab*) 81 mg PO QAM [facility] Last Admin: 04/29/18 10:31 Dose: 81 mg Calcium Polycarbophil (Fibercon Tab*) 1,250 mg PO BID [facility] Last Admin: 04/29/18 10:30 Dose: 1,250 mg Carvedilol (Coreg Tab*) 12.5 mg PO BID [facility] Last Admin: 04/29/18 10:30 Dose: 12.5 mg Clopidogrel Bisulfate (Plavix Tab*) 75 mg PO DAILY [facility] Last Admin: 04/29/18 10:31 Dose: 75 mg Heparin Sodium (Porcine) (Heparin Vial(*)) 5,000 units SUBCUT Q8HR [facility] Last Admin: 04/29/18 13:33 Dose: 5,000 units Lactobacillus Rhamnosus (Lactobacillus Acidophilus*) 1 tab PO QAM [facility] Last Admin: 04/29/18 10:31 Dose: 1 tab Metoprolol Tartrate (Lopressor Iv*) 5 mg IV Q6H PRN PRN Reason: Blood Pressure SBP >180 Mometasone Furoate/Formoterol Fumar (Dulera 200/5 Mdi*) 2 puff INH BID [facility] Last Admin: 04/29/18 07:23 Dose: 2 inh Montelukast Sodium (Singulair Tab*) 10 mg PO QPM [facility] Pantoprazole Sodium (Protonix Tab (Nf)) 40 mg PO QAM [facility] Last Admin: 04/29/18 10:31 Dose: 40 mg Polyethylene Glycol/Electrolytes (Miralax*) 17 gm PO EVERY OTHER DAY [facility] Last Admin: 04/28/18 22:25 Dose: 17 gm Simvastatin (Zocor(Nf)) 10 mg PO QPM [facility] Tiotropium [place] (Spiriva Cap.Inh*) 1 cap INH QAM [facility] Last Admin: 04/29/18 07:24 Dose: 1 cap Vital Signs - 8 hr 04/29/18 11:03 Temperature 97.8 F Pulse Rate 76 Respiratory 22 Rate Blood Pressure 167/77 (mmHg) O2 Sat by Pulse 97 Oximetry Oxygen Devices in Use Now: None Appearance: NAD Eyes: No Scleral Icterus, PERRLA Ears/Nose/Mouth/Throat: NL Teeth, Lips, Gums, Mucous Membranes Moist Neck: NL Appearance and Movements; NL JVP Respiratory: Symmetrical Chest Expansion and Respiratory Effort, Clear to Auscultation Cardiovascular: NL Sounds; No Murmurs; No JVD Abdominal: NL Sounds; No Tenderness; No Distention Extremities: No Edema, No Clubbing, Cyanosis Skin: No Rash or Ulcers, No Nodules or Sclerosis Neurological: Alert and Oriented x 3, NL Sensation, NL Muscle Strength and Tone Nutrition: Taking PO's Result Diagrams: 04/29/18 05:19 04/29/18 05:19 Additional Lab and Data: Laboratory Results - last 24 hr 04/28/18 04/28/18 04/28/18 17:01 17:01 17:01 WBC RBC Hgb Hct MCV MCH MCHC RDW Plt Count MPV Neut % (Auto) Lymph % (Auto) [place] % (Auto) Eos % (Auto) Baso % (Auto) Absolute Neuts (auto) Absolute Lymphs (auto) Absolute Monos (auto) Absolute Eos (auto) Absolute Basos (auto) Absolute Nucleated RBC Nucleated RBC % INR (Anticoag Therapy) 0.94 Sodium 141 Potassium 4.2 Chloride 110 Carbon Dioxide 24 Anion Gap 7 BUN 26 H Creatinine 1.23 H Est GFR ( Amer) 50.0 Est GFR (Non-Af Amer) 41.3 BUN/Creatinine Ratio 21.1 H Glucose 95 Lactic Acid 0.6 Calcium 8.9 Total Bilirubin 0.70 AST 19 ALT 11 Alkaline Phosphatase 68 Troponin I 0.65 H* Total Protein 6.5 Albumin 3.9 Globulin 2.6 Albumin/Globulin Ratio 1.5 Triglycerides Cholesterol LDL Cholesterol HDL Cholesterol TSH 3.19 Urine Color Urine Appearance Urine pH Ur Specific [place] Urine Protein Urine Ketones Urine Blood Urine Nitrate Urine Bilirubin Urine Urobilinogen Ur Leukocyte Esterase Urine WBC (Auto) Urine RBC (Auto) Ur Squamous Epith Cells Urine Bacteria Urine Glucose 04/28/18 04/29/18 04/29/18 21:38 00:29 05:19 WBC RBC Hgb Hct MCV MCH MCHC RDW Plt Count MPV Neut % (Auto) Lymph % (Auto) [place] % (Auto) Eos % (Auto) Baso % (Auto) Absolute Neuts (auto) Absolute Lymphs (auto) Absolute Monos (auto) Absolute Eos (auto) Absolute Basos (auto) Absolute Nucleated RBC Nucleated RBC % INR (Anticoag Therapy) Sodium 140 Potassium 4.1 Chloride 110 Carbon Dioxide 23 Anion Gap 7 BUN 29 H Creatinine 1.29 H Est GFR ( Amer) 47.3 Est GFR (Non-Af Amer) 39.1 BUN/Creatinine Ratio 22.5 H Glucose 80 Lactic Acid Calcium 8.3 L Total Bilirubin AST ALT Alkaline Phosphatase Troponin I 0.75 H* 0.62 H* Total Protein Albumin Globulin Albumin/Globulin Ratio Triglycerides 100 Cholesterol 121 LDL Cholesterol 62 HDL Cholesterol 38.6 TSH Urine Color Urine Appearance Urine pH Ur Specific [place] Urine Protein Urine Ketones Urine Blood Urine Nitrate Urine Bilirubin Urine Urobilinogen Ur Leukocyte Esterase Urine WBC (Auto) Urine RBC (Auto) Ur Squamous Epith Cells Urine Bacteria Urine Glucose 04/29/18 04/29/18 05:19 10:20 WBC 4.6 RBC 3.25 L Hgb 10.0 L Hct 29 L MCV 89 MCH 31 MCHC 35 RDW 15 Plt Count 151 MPV 6.9 L Neut % (Auto) 59.2 Lymph % (Auto) 21.4 L [place] % (Auto) 11.0 H Eos % (Auto) 7.8 H Baso % (Auto) 0.6 Absolute Neuts (auto) 2.7 Absolute Lymphs (auto) 1.0 Absolute Monos (auto) 0.5 Absolute Eos (auto) 0.4 Absolute Basos (auto) 0 Absolute Nucleated RBC 0 Nucleated RBC % 0.1 INR (Anticoag Therapy) Sodium Potassium Chloride Carbon Dioxide Anion Gap BUN Creatinine Est GFR ( Amer) Est GFR (Non-Af Amer) BUN/Creatinine Ratio Glucose Lactic Acid Calcium Total Bilirubin AST ALT Alkaline Phosphatase Troponin I Total Protein Albumin Globulin Albumin/Globulin Ratio Triglycerides Cholesterol LDL Cholesterol HDL Cholesterol TSH Urine Color Yellow Urine Appearance Clear Urine pH 5.0 Ur Specific [place] 1.015 Urine Protein Negative Urine Ketones Negative Urine Blood 1+ A Urine Nitrate Negative Urine Bilirubin Negative Urine Urobilinogen Negative Ur Leukocyte Esterase 2+ A Urine WBC (Auto) 2+(11-20/hpf) A Urine RBC (Auto) 1+(3-5/hpf) A Ur Squamous Epith Cells Present A Urine Bacteria Absent Urine Glucose Negative Assess/Plan/Problems-Billing Assessment: 87 yo female PMH HTN, CAD/WI, CKD stage IV-IIIB, Takutsubo's CM (2014), transient global amnesia 2011 p/w confusion, disorientation, amnesia after 's , then chest pain. Troponin peaked 0.75, TWI anterior leads. EF 30-35% on 03/27. - Patient Problems (1) Hypertensive urgency Current Visit: Yes Status: Acute Code(s): I16.0 - HYPERTENSIVE URGENCY SNOMED Code(s): 992900228 Comment: Improved. 200/140 in ED. In setting of stress of and possible catecholamine surge. (2) NSTEMI (non-ST elevated myocardial infarction) Current Visit: No Status: Acute Code(s): I21.4 - NON-ST ELEVATION (NSTEMI) MYOCARDIAL INFARCTION SNOMED Code(s): 424611641 Comment: - Appreciate cardiology consult. - demand ischemia vs Takutsubo's secondary to stress of husbands - Ms. Guerrero requests only medical management and declined a [facility]. Echo on 03/27 showed new LV dysfunction with EF 30% - repeat ECHO in 3 weeks. - Continue aspirin, Plavix - coreg increased to 12.5mg BID and may be able to increase further(previous discharge she was stoppped off spironolactone, valsartan, hctz). - continue statin. - Pt does not want [facility] and Dr. Jensen recommended canceling her stress test upcoming. (3) Transient global amnesia Current Visit: Yes Status: Acute Code(s): G45.4 - TRANSIENT GLOBAL AMNESIA SNOMED Code(s): 823664950 Comment: DDx transient global amnesia, hypertensive urgency, TIA, seizure. Resolved. CTHead without acute process. No other reported focal deficits but she does have CAD, HTN, HLD, CKD risk factors along with hypertensive urgency (4) Takotsubo cardiomyopathy Current Visit: Yes Status: Acute Code(s): I51.81 - TAKOTSUBO SYNDROME SNOMED Code(s): 152560141 Comment: Appreciate cardiology recs. Repeat ECHO in 3 weeks. Euvolemic on RA. (5) HLD (hyperlipidemia) Current Visit: No Status: Acute Code(s): E78.5 - HYPERLIPIDEMIA, UNSPECIFIED SNOMED Code(s): 68755740 Comment: - Resume simvastatin. (6) HTN (hypertension) Current Visit: No Status: Acute Code(s): I10 - ESSENTIAL (PRIMARY) HYPERTENSION SNOMED Code(s): 79723256 Comment: - increased coreg to 12.5mg BID. - amlodipine 2.5mg daily. better controlled to 130-160s from 200/140s max yesterday. (7) CKD (chronic kidney disease) stage 4, GFR 15-29 ml/min Current Visit: No Status: Chronic Code(s): N18.4 - CHRONIC KIDNEY DISEASE, STAGE 4 (SEVERE) SNOMED Code(s): 976853623 Comment: - Stage 3B-4. GFR actually up to 39. LHC would be risky with dye load. (8) DNR (do not resuscitate) Current Visit: No Status: Acute Comment: Status and Disposition: medicine inpatient for hypertensive urgency, NSTEMI, Altered mental status. Likely d/c 04/30
[2018-04-29] MEDS ORDERED: Montelukast Sodium TAB* 10 MG PO SCH (18:00)
[2018-04-29] MEDS ORDERED: CMCS:Simvastatin TAB(NF) 10 MG TAB PO SCH (18:00)
[2018-04-30] MEDS: Heparin VIAL(*) 5000 UNITS/ML VIAL (FIVE THOUSAND) SUBCUT SCH (05:41)
[2018-04-30] MEDS: Mometasone/Formoter 200/5 MDI INH SCH (07:35)
[2018-04-30] MEDS: Tiotropium CAP.INH* CAP.INH/18 MCG (USE ORDER SET !) INH SCH (07:35)
[2018-04-30 07:52] VITALS: BP 138/78
[2018-04-30] MEDS: Clopidogrel TAB* 75 MG PO SCH (08:34)
[2018-04-30] MEDS: CMCS: Pantoprazole TAB (NF) 40 MG TAB PO SCH (08:34)
[2018-04-30] MEDS: Lactobacillus Acidophilus* 1 TAB PO SCH (08:34)
[2018-04-30] MEDS: Carvedilol TAB* 6.25 MG PO SCH (08:34)
[2018-04-30] MEDS: Aspirin EC TAB* 81 MG TAB.EC PO SCH (08:36)
[2018-04-30] MEDS: amLODIPine TAB* 5 MG PO SCH (08:36)
[2018-04-30] MEDS: Calcium Polycarbophil TAB* 625 MG PO SCH (08:37)
[2018-04-30] MEDS ORDERED: Polyethylene Glycol 3350* 17 GM PACKET PO SCH ×2 (09:00→21:00)
--- NOTE | 2018-04-30 10:42 | PN ---
Subjective Date of Service: 04/30/18 Interval History: ACS-like presentation, working diagnosis takotsubo's, recurrent - No chest pain or dyspnea - Wants to go home - Discussed rationale for increased beta-fransisca dose with patient and her daughter tele: NSR, brief aivr Medications Active Medications: Acetaminophen (Tylenol Tab*) 650 mg PO Q4H PRN PRN Reason: FEVER/PAIN Last Admin: 04/29/18 03:52 Dose: 650 mg Al Hydrox/Mg Hydrox/Simethicone (Maalox Plus*) 30 ml PO Q6H PRN PRN Reason: INDIGESTION Amlodipine Besylate (Norvasc Tab*) 2.5 mg PO DAILY [facility] Last Admin: 04/30/18 08:36 Dose: 2.5 mg Aspirin (Aspirin Ec Tab*) 81 mg PO QAM [facility] Last Admin: 04/30/18 08:36 Dose: 81 mg Calcium Polycarbophil (Fibercon Tab*) 1,250 mg PO BID [facility] Last Admin: 04/30/18 08:37 Dose: 1,250 mg Carvedilol (Coreg Tab*) 12.5 mg PO BID [facility] Last Admin: 04/30/18 08:34 Dose: 12.5 mg Clopidogrel Bisulfate (Plavix Tab*) 75 mg PO DAILY [facility] Last Admin: 04/30/18 08:34 Dose: 75 mg Heparin Sodium (Porcine) (Heparin Vial(*)) 5,000 units SUBCUT Q8HR [facility] Last Admin: 04/30/18 05:41 Dose: 5,000 units Lactobacillus Rhamnosus (Lactobacillus Acidophilus*) 1 tab PO QAM [facility] Last Admin: 04/30/18 08:34 Dose: 1 tab Metoprolol Tartrate (Lopressor Iv*) 5 mg IV Q6H PRN PRN Reason: Blood Pressure SBP >180 Mometasone Furoate/Formoterol Fumar (Dulera 200/5 Mdi*) 2 puff INH BID [facility] Last Admin: 04/30/18 07:35 Dose: 2 inh Montelukast Sodium (Singulair Tab*) 10 mg PO QPM [facility] Last Admin: 04/29/18 18:54 Dose: 10 mg Pantoprazole Sodium (Protonix Tab (Nf)) 40 mg PO QAM [facility] Last Admin: 04/30/18 08:34 Dose: 40 mg Polyethylene Glycol/Electrolytes (Miralax*) 17 gm PO Q48H [facility] Simvastatin (Zocor(Nf)) 10 mg PO QPM [facility] Last Admin: 04/29/18 18:54 Dose: 10 mg Tiotropium [place] (Spiriva Cap.Inh*) 1 cap INH QAM [facility] Last Admin: 04/30/18 07:35 Dose: 1 cap Objective Vital Signs: Temp Pulse Resp BP Pulse Ox 97.7 F 70 18 138/78 96 04/30/18 07:35 04/30/18 07:35 04/30/18 07:35 04/30/18 07:35 04/30/18 07:35 Oxygen Devices in Use Now: None Appearance: nad, pleasant Ears/Nose/Mouth/Throat: Clear Oropharnyx Neck: NL Appearance and Movements; NL JVP, Trachea Midline Respiratory: Symmetrical Chest Expansion and Respiratory Effort, Clear to Auscultation Cardiovascular: NL Sounds; No Murmurs; No JVD, RRR, No Edema Abdominal: NL Sounds; No Tenderness; No Distention Extremities: No Edema Skin: No Rash or Ulcers Neurological: Alert and Oriented x 3 Laboratory Results: 04/29/18 05:19 04/29/18 05:19 INR (Anticoag Therapy) 0.94 (0.77-1.02) 04/28/18 17:01 Total Bilirubin 0.70 mg/dL (0.2-1.0) 04/28/18 17:01 AST 19 U/L (13-39) 04/28/18 17:01 ALT 11 U/L (7-52) 04/28/18 17:01 Alkaline Phosphatase 68 U/L (34-104) 04/28/18 17:01 Total Protein 6.5 g/dL (6.4-8.9) 04/28/18 17:01 Albumin 3.9 g/dL (3.2-5.2) 04/28/18 17:01 Globulin 2.6 g/dL (2-4) 04/28/18 17:01 Albumin/Globulin Ratio 1.5 (1-3) 04/28/18 17:01 Triglycerides 100 mg/dL 04/29/18 05:19 Cholesterol 121 mg/dL 04/29/18 05:19 LDL Cholesterol 62 mg/dL 04/29/18 05:19 HDL Cholesterol 38.6 mg/dL 04/29/18 05:19 TSH 3.19 mcIU/mL (0.34-5.60) 04/28/18 17:01 04/28/18 04/28/18 04/29/18 17:01 21:38 00:29 Troponin I 0.65 H* 0.75 H* 0.62 H* Diagnostic Imaging: Cardiac Testing: Echocardiogram - (03/27/2018): Akinesis of mid to apical segments with preserved basal function Echocardiogram - (01/13/2015) EF 50-55%, DD, RV dil, mod TR, PAPr 29 mmHg Echocardiogram - (10/30/2014) EF 35-40%, Echocardiogram - (02/06/2013) EF 60-65%, E to A reversal in the MV flow pattern suggestive of diastolic dysfunction. Trace MR, Mild-mod TR, moderate PHTN. Cardiac Procedures: Cardiac Catheterization - (10/31/2014) Diffuse mild coronary luminal irregularities with 50% stenosis seen in the mid LAB. Reduced LV function and EF of 40% with apical aneurysm consistent with Takotsubo. Mildly increased apical pressure. brain ct admission: no acute disease EKG Data: ekg 04/08/2017: NSR, LAD, otherwise unremarkable. ekg 03/27/18: NSR, LAD, IVCD, ischemic appearing T wave changes v3-v6, 1/aVL ekg 04/12/2018: NSR, much more pronounced deeply symmetric TWI across the precordium, 1/aVL and lead II ekg on admission: NSR, similar to the 03/27 ekg Assessment/Plan 1. Confusion and ACS-like presentation in setting of significant stress, suspect recurrent takotsubo. Type [address] not definitively excluded. Recommendation Continue current cardiac medications Can be discharged from a cardiac standpoint Echo in 3 weeks (will arrange) Thank you for allowing me to participate in the cardiovascular care of this patient. Please do not hesitate to contact me with questions or concerns.
--- NOTE | 2018-04-30 21:34 | DS ---
DISCHARGE SUMMARY: DATE OF ADMISSION: 04/29/18 DATE OF DISCHARGE: Dictation ends here. [id number]/[facility] #: [id number] MTDD
--- NOTE | 2018-05-02 04:07 | DS ---
DISCHARGE SUMMARY: DATE OF ADMISSION: 04/28/18 DATE OF DISCHARGE: 04/30/18 ADMITTING PROVIDER: Nivia Keen NP PRIMARY CARE PHYSICIAN: Aman James MD ATTENDING PHYSICIAN ON DAY OF DISCHARGE: Anish Hurt MD CHIEF COMPLAINT: Confusion/altered mental status with short-term memory loss and disorientation; chest pain/heaviness. 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 She was in her usual state of health though very stressed throughout the day of admission given that she was attending the [facility] service for her recently passed . She after the ceremony was noted to be confused, not oriented to place and was then evaluated by Dr. James, her primary care provider who sent her to [facility] Emergency Room. In the hospital waiting room, she started developing chest pressure/heaviness across the upper chest, it was on and off. Her initial evaluation included troponin which was elevated at 0.65. Her orientation seemed to improve. She was noted to be hypertensive to max of 203/143. She was referred to hospital service for admission due to the chest pain, elevated troponin, hypertension, and confusion. Her hypertension was initially treated with 6.25 mg of Coreg (twice her recently decreased home dose and then increased to 12.5 mg starting hospital day #2 with improvement in pressures to most recently 120s to 130s over 60s to 70s). Hospital day #2, she continued to have short-term memory loss of the day prior, but does remember getting ready and dressing for the service. Her troponins would peak at 0.[address] Jensen of cardiology was consulted, her chest pain had resolved. There was suspicion for recurrence of the Takotsubo cardiomyopathy, which was suspected last month and in 2014 with the echo on 03/27/18 showed ejection fraction of 30 to 35% with multiple regional wall motion abnormalities, moderate tricuspid valve regurgitation. Her initial EKG demonstrated Q-wave inversions and biphasic T-waves in the anterior leads, no ST elevations or depressions and was similar to this late April EKGs. Dr. Jensen had long talks with the patient about her goals of care and she did not wish to proceed with the stress test or a left heart catheterization. He did recommend follow up with Dr. Dillard in 3 weeks to get echocardiogram. As mentioned, her Coreg has been increased to 12.5 mg daily. She was continued on her aspirin and Plavix, DISCHARGE MEDICATIONS: Include: 1. Carvedilol 12.5 mg p.o. b.i.d. 2. Tiotropium (Spiriva) 1 puff inhaled q.a.m. 3. Simvastatin 10 mg p.o. q.p.m. 4. MiraLAX 17 g p.o. daily. 5. Omeprazole 20 mg p.o. daily. 6. Norvasc 2.5 mg p.o. daily. 7. Singulair 10 mg p.o. q.p.m. 8. Advair 1 puff inhaled b.i.d. 9. Clopidogrel (Plavix) 75 mg p.o. daily. 10. Calcium polycarbophil 2 cups full p.o. b.i.d. 11. Align (Bifidobacterium infantis) 4 mg p.o. q.a.m. 12. Aspirin 81 mg p.o. daily. DISCHARGE DIET: Heart healthy, unchanged. FOLLOWUP: The patient is to follow up with Dr. Checo James within 7 days, with Dr. Dillard as already scheduled in approximately 3 weeks for office echocardiogram. [id number]/[facility] #: [id number] DARREN
== END 2018-04-30 11:45 | disposition home or self-care (01) | DRG 281 ==
LOC: ED 14:04 → MEDTELE 19:43 → OBSVTOIN 04-29 15:38
PROVIDERS: ADMIT Internal Medicine; ATTEND Internal Medicine
DX: I51.81 Takotsubo syndrome (principal); I21.4 Non-ST elevation (NSTEMI) myocardial infarction; N18.4 Chronic kidney disease, stage 4 (severe); G45.4 Transient global amnesia; I16.0 Hypertensive urgency; I15.8 Other secondary hypertension; I25.10 Atherosclerotic heart disease of native coronary artery without angina pectoris; I13.10 Hypertensive heart and chronic kidney disease without heart failure, with stage 1 through stage 4 chronic kidney disease, or unspecified chronic kidney disease; E78.5 Hyperlipidemia, unspecified; J45.909 Unspecified asthma, uncomplicated; Z66 Do not resuscitate; K21.9 Gastro-esophageal reflux disease without esophagitis; I25.2 Old myocardial infarction; Z79.82 Long term (current) use of aspirin; Z79.899 Other long term (current) drug therapy; Z88.8 Allergy status to other drugs, medicaments and biological substances; Z88.1 Allergy status to other antibiotic agents; Z91.041 Radiographic dye allergy status; I87.2 Venous insufficiency (chronic) (peripheral); Z82.61 Family history of arthritis; Z87.891 Personal history of nicotine dependence
CPT/HCPCS: 36415; 70450; 80048; 80053; 80061; 81003; 81015; 83605; 84443; 84484; 85025; 85610; 87086; 93005; 94640; 99284; A9270-GY; J1644

== ENCOUNTER 2019-05-27 09:29 | Observation (INO) | payer MEDICARE ==
[2019-05-27] MEDS ORDERED: Ondansetron INJ* 2 MG/ML VIAL IV ONE (09:46)
[2019-05-27] MEDS ORDERED: NS 0.9% 1000 ML** 1,000 ML IV ONE (09:46)
[2019-05-27] MEDS ORDERED: Acetaminophen TAB* 325 MG PO ONE (09:46)
--- OUTSIDE RECORDS SUMMARY | 2019-05-27 09:48 | XMS REPORT | Continuity of Care Document ---
:1930 External Reference #:[id number] Author Name EdwardNivai Care Team Providers Name Role Phone Melissa Santa M.D. Primary Care Physician Unavailable Payers Date Identification Numbers Payment Provider Subscriber Policy Number: [id number] Medicare Blue Ppo [employer] Number: [id number] [address] [address] PayID: [id number] [place] [id number] Advance Directives Type Date Description Status Comment Other Directive 11/16/2017 Health Care Proxy Current and Verified Problems Active Problems Provider Date Takotsubo cardiomyopathy Winsome Rust N.P. Onset: 03/30/2018 Essential hypertension Dagmar Dillard M.D. Onset: 01/03/2015 Coronary arteriosclerosis Dagmar Dillard M.D. Onset: 01/03/2015 Peripheral venous insufficiency Dagmar Dillard M.D. Onset: 01/03/2015 Edema Dagmar Dillard M.D. Onset: 01/03/2015 Tricuspid valve disorder, Dagmar Dillard M.D. Onset: 01/28/2015 non-rheumatic Old myocardial infarction Dagmar Dillard M.D. Onset: 07/14/2015 Hyperlipidemia Dagmar Dillard M.D. Onset: 07/14/2015 Abdominal aortic aneurysm without Aman Urena M.D.,SAHRAP Onset: 2016 rupture Note: 2.4 cm Diverticular disease of colon Aman Urena M.D.,SAHRAP Onset: 03/23/2017 Note: recurrent divertic Cardiomyopathy Aman Urena M.D.,FACP Onset: 03/23/2017 Moderate persistent asthma Aman Urena M.D.,FACP Onset: 03/23/2017 Ex-smoker Aman Urena M.D.,FACP Onset: 03/23/2017 Anemia Aman Urena M.D.,FACP Onset: 12/19/2017 Note: normocytic Recurrent abdominal pain Aman Urena M.D.,FACP Onset: 12/19/2017 Note: mimics diverticulitis, ?stricture Chronic kidney disease stage 3 Jann Pretty II, M.D. Onset: 03/25/2018 Gastroesophageal reflux disease Winsome Rust N.P. 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 Onset: 06/12/2018 disease Inactive Problems Chronic kidney disease stage 2 Aman Urena M.D.,FACP Onset: 03/23/2017 Inactive: 04/06/2018 Resolved Problems Chronic kidney disease stage 4 Bailee Browne M.D. Onset: 03/26/2018 Resolved: 04/06/2018 Acute respiratory failure with hypoxia Annmarie Woo DO Onset: 03/28/2018 Resolved: 04/06/2018 Acute systolic heart failure Annmarie Woo DO Onset: 03/28/2018 Resolved: 04/06/2018 Hypertensive heart and chronic kidney disease Annmarie Woo DO Onset: 03/28 with heart failure and stage 1 through stage 4 chronic kidney disease, or unspecified chronic kidney disease Resolved: 04/06/2018 Acute subendocardial infarction Jann Pretty II, M.D. Onset: 03/25/2018 Resolved: 04/06/2018 Chest pain Nivia Keen NP Onset: 04/28/2018 Resolved: 06/07/2018 Altered mental status Nivia Keen NP Onset: 04/28/2018 Resolved: 06/07/2018 Transient global amnesia Anish Hurt MD Onset: 04/29/2018 Resolved: 06/07/2018 Family History Date Family Member(s) Observation Comments General No Current Problems General Rheumatoid Arthritis Father due to Unknown Causes () Mother due to Unknown Causes () Children 3 First Daughter Rheumatoid Arthritis Siblings None adopted, no knowledge Social History Type Date Description Comments Sex Unknown Marital Status Lives With Alone Occupation Retired Occupation Nurse Tobacco Use Start: Unknown End: Former Cigarette Smoker 30 year pack Unknown history Smoking Status Reviewed: 03/29/19 Former Cigarette Smoker 30 year pack history ETOH Use 02/01/2018 Occasionally consumes alcohol Tobacco Use Start: Unknown End: Patient is a former quit smoking in Unknown smoker 2010 Recreational Drug Use Denies Drug Use Exercise Type/Frequency Exercises sporadically Allergies, Adverse Reactions, Alerts Active Allergies Reaction Severity Comments Date Levaquin tendonitis 01/01/2015 Iodinated Diagnostic Agents rash 01/01/2015 Augmentin sore mouth 11/17/2017 Bactrim Nausea and Vomiting Moderate 12/19/2017 Tramadol 03/03/2018 Adhesive skin peels off, be careful Moderate 01/11/2019 Doxycycline 03/29/2019 Medications Active Medications SIG Qnty Indications Ordering Date Provider Aspirin 1 by mouth every 90tabs Dagmar Dillard, 03/18/[address] donnie Esparza Cyanocobalamin 1 sublingual 90tabs Melissa Santa MD 01/15/2019 2500mcg every day Tablets Sub Hydroxyzine HCL 1 tab by mouth 10tabs Melissa Santa MD 12/26/2018 25mg 1-2 hrs prior to Tablets procedure, as needed for anxiety Protonix 1 by mouth every 90tabs Anish Hurt MD 06/20/[address] donnie Carvedilol 1 by mouth twice 180tabs Anish Hurt MD 04/30/2018 12.5mg Tablets a day Amlodipine Besylate 2 tabs by mouth 180tabs I21.4 Anish Hurt MD 04/07/2018 2.5mg daily Tablets B12 Fast Dissolve sublingual daily 90tabs E53.8 Vinnie Huerta, 03/03/2018 5000mcg Vilma Tablets Dispers Montelukast Sodium take 1 tablet 90tabs Anish Hurt MD 04/15/2017 10mg daily Tablets Probiotic 1 by mouth every 30caps Other Ordering 03/10/2017 Capsules day Provider Miraladenise 1/2 cap qod Aman Hassan 03/10/2017 Gary Urena M.D.,FACP Simvastatin take one tablet 90tabs Anish Hurt MD 03/10/2017 10mg Tablets by mouth at bedtime Spiriva Handihaler 1 inhalation by 90caps Anish Hurt MD 18mcg mouth every Capsules morning Advair Diskus use 1 inhalation 90units Anish Hurt MD twice a day 250-50mcg/Dose Aerosol History Medications Cyanocobalamin 1ml one Melissagibson JoaquinSanta, 01/11/2019 - intramuscular weekly 02/07/2019 1000mcg/ML Solution once a month x 6 Mirtazapine one by mouth daily, 30tabs F43.21 Melissagibson Santa, 12/22/2018 - 7.5mg at bedtime 12/26/2018 Tablets Cephalexin three times a day by 21nivia Hassan 06/07/2018 - 500mg mouth Erika, 11/30/2018 Capsules Vilma,FACP Eliquis Starter Pack 2 tabs twice a day Aman Hassan 06/07/2018 - for 7 days then 1 Erika, 06/21/2018 5mg Tablets tab twice a day Alix.Mo,FACP Nitroglycerin 1 SL q 5 min X 3 prn 25tabs I21.4 Dagmar Dillard, 04/07/2018 - 0.3mg CP M.DShona 12/26/2018 Tablets Sub Carvedilol 1 by mouth twice a 180tabs Dagmar Dillard, 04/03/2018 - 3.125mg day M.D. 04/30/2018 Tablets Estrace ( Not Taking) 1 gm 42.500g Aman Hassan 02/01/2018 - 0.1mg/GM Cream by way of vagina m Erika, 04/28/2018 4x/wk for 2 wks then M.DShona,FACP 2/wk ongoing Proair Respiclick 2 puffs four times a 1units Aman Hassan 12/19/2017 - day as needed Erika, 04/03/2018 108(90Base) mcg/Act M.DShona,FACP Aerosol Cheratussin ac 5-10 milliliters by 118ml R05 Elizabeth 11/17/2017 - mouth four times a Campos, SEAN 12/19/2017 100-10mg/5ML Solution day as needed cough, use mostly at night Sulfamethoxazole/Trim 1 by mouth twice a 14tabs J20.9 Elizabeth 11/17/2017 - ethoprim DS day Campos, [employer]BE [employer] DEVELOPER 12/19/2017 800-160mg Tablets Amoxicillin/Clavulana one tab twice/day 20tabs J01.90 Elizabeth 09/12/2017 - te Potassium Campos, ADOBE FLEX DEVELOPER 11/17/2017 875-125mg Tablets Melatonin ER 1 by mouth every 30tabs Aman Hassan 03/23/2017 - 5mg night at bedtime Erika, 04/05/2018 Tablets ER Vilma,FACP Montelukast Sodium 2 tabs by mouth 60tabs Aman Hassan 03/10/2017 - 10mg every day Erika, 04/15/2017 Tablets Vilma,FACP Fiber-Caps 1 capsule daily Other Ordering 03/10/2017 - 625mg Provider 05/02/2018 Tablets Calcium Polycarbophil 2 cups full bid Unknown - 12/26/2018 Powder Clopidogrel Bisulfate 1/2 tab by mouth 90tabs Dagmar Dillard, - every day until late M.D. 03/29/2019 75mg Tablets February, then discontinue Simvastatin 1 by mouth every day Unknown - 20mg 03/10/2017 Tablets Diovan HCT one tab daily 90tabs [place] - 160-12.5mg [facility], 04/03/2018 Tablets M.DShona Aldactone 1/2 tab by mouth 45tabs [place] - 25mg Tablets every day [facility], 04/03/2018 M.DShona Aspirin 1 by mouth every day Unknown - 81mg Tablets 09/04/2018 Carvedilol 1 by mouth twice a 180tabs [place] - 6.25mg day [facility], 04/03/2018 Tablets M.DShona Xarelto 1 by mouth every day Unknown - 20mg Tablets 01/15/2015 Proventil HFA 2 puffs by mouth Unknown - every 4 hours as 09/05/2014 108(90Base) mcg/Act needed Aerosol Singulair 1 by mouth every day 90tabs [place] - 10mg Tablets [place], 04/03/2018 Vilma Evista 1 by mouth every day Unknown - 60mg Tablets 09/05/2014 Diovan 1 by mouth every day Unknown - 160mg Tablets 01/28/2015 Omeprazole 1 by mouth daily 90caps Narinder - 20mg [place], 06/20/[address] Esparza Immunizations CPT Code Status Date Vaccine Reaction Lot # [id number] Given 05/10/2018 Influenza Virus Vaccine, Quadrivalent, [id number] Split, Preservative Free [id number] Given 12/19/2017 Pneumococcal Conjugate Vaccine 13 no reaction [id number] Valent For Intramuscular Use [id number] Given 07/25/2017 Influenza Virus Vaccine, Quadrivalent, Split, Preservative Free [id number] Given 07/13/2006 Pneumonia Vaccine Vital Signs Date Vital Result Comment 03/29/2019 10:31am Height 57 inches 4'9" Weight 107.00 lb Heart Rate 66 /min BP Systolic 149 mmHg BP Diastolic 82 mmHg Respiratory Rate 18 /min Body Temperature 97.6 F O2 % BldC Oximetry 92 % BMI (Body Mass Index) 23.2 kg/m2 02/08/2019 11:16am Height 57.5 inches 4'9.50" Weight 112.00 lb w/shoes Heart Rate 70 /min reg BP Systolic Sitting 160 mmHg Lue reg cuff BP Diastolic Sitting 90 mmHg Lue reg cuff Respiratory Rate 16 /min BMI (Body Mass Index) 23.8 kg/m2 01/11/2019 2:20pm Height 57.5 inches 4'9.50" Weight 112.00 lb Heart Rate 80 /min BP Systolic 194 mmHg lue reg cuff BP Diastolic 108 mmHg lue reg cuff BP Systolic Sitting 188 mmHg lue reg cuff BP Diastolic Sitting 106 mmHg lue reg cuff Respiratory Rate 14 /min BMI (Body Mass Index) 23.8 kg/m2 Ejection Fraction 55-60% 05/15/18 12/26/2018 1:14pm Heart Rate 63 /min BP Systolic Sitting 174 mmHg R-203/88 BP Diastolic Sitting 83 mmHg R-203/88 12/22/2018 11:38am Height 58 inches 4'10" Weight 112.00 lb Heart Rate 67 /min BP Systolic Sitting 157 mmHg BP Diastolic Sitting 89 mmHg O2 % BldC Oximetry 97 % BMI (Body Mass Index) 23.4 kg/m2 06/12/2018 3:57pm Height 58 inches 4'10" Weight 113.00 lb Heart Rate 66 /min BP Systolic Sitting 142 mmHg lue reg cuff BP Diastolic Sitting 87 mmHg lue reg cuff BP Systolic Standing 134 mmHg BP Diastolic Standing 78 mmHg Respiratory Rate 16 /min BMI (Body Mass Index) 23.6 kg/m2 Ejection Fraction 55-60% 05/15/2018 echo 06/07/2018 4:34pm Height 58 inches 4'10" Weight 112.25 lb Heart Rate 71 /min BP Systolic Sitting 140 mmHg BP Diastolic Sitting 82 mmHg Body Temperature 97.7 F O2 % BldC Oximetry 96 % BMI (Body Mass Index) 23.5 kg/m2 05/25/2018 2:55pm Height 58 inches 4'10" Weight 112.25 lb Heart Rate 60 /min BP Systolic Sitting 142 mmHg BP Diastolic Sitting 88 mmHg Body Temperature 97.2 F O2 % BldC Oximetry 96 % at rest on room air BMI (Body Mass Index) 23.5 kg/m2 05/10/2018 1:41pm Weight 111.00 lb Heart Rate 72 /min BP Systolic Sitting 150 mmHg BP Diastolic Sitting 90 mmHg BP Systolic Recheck 165 mmHg BP Diastolic Recheck 92 mmHg Body Temperature 97.4 F O2 % BldC Oximetry 98 % 04/28/2018 1:28pm Heart Rate 94 /min BP Systolic Sitting 160 mmHg BP Diastolic Sitting 98 mmHg Body Temperature 98.1 F O2 % BldC Oximetry 96 % 04/07/2018 3:18pm Height 58 inches 4'10" Weight 110.00 lb with shoes Heart Rate 70 /min BP Systolic Sitting 140 mmHg Lue reg cuff BP Diastolic Sitting 80 mmHg Lue reg cuff BP Systolic Standing 136 mmHg Lue reg cuff BP Diastolic Standing 80 mmHg Lue reg cuff Respiratory Rate 16 /min BMI (Body Mass Index) 23.0 kg/m2 04/06/2018 10:52am Height 58 inches 4'10" Weight 108.50 lb Heart Rate 73 /min BP Systolic 120 mmHg BP Diastolic 80 mmHg Body Temperature 97.0 F O2 % BldC Oximetry 97 % BMI (Body Mass Index) 22.7 kg/m2 03/20/2018 3:43pm Height 58 inches 4'10" Weight 108.00 lb w/ shoes Heart Rate 68 /min BP Systolic Sitting 116 mmHg lue regg cuff BP Diastolic Sitting 72 mmHg lue regg cuff BP Systolic Standing 124 mmHg lue regg cuff BP Diastolic Standing 78 mmHg lue regg cuff Respiratory Rate 18 /min BMI (Body Mass Index) 22.6 kg/m2 Ejection Fraction 50-55% Echo 01/13/2015 03/03/2018 9:48am Height 58 inches 4'10" Weight 107.00 lb Heart Rate 82 /min BP Systolic Sitting 126 mmHg BP Diastolic Sitting 80 mmHg Respiratory Rate 14 /min Pain Level 0 BMI (Body Mass Index) 22.4 kg/m2 02/01/2018 11:01am Height 58 inches 4'10" Weight 107.00 lb Heart Rate 81 /min BP Systolic Sitting 114 mmHg BP Diastolic Sitting 62 mmHg Body Temperature 97.9 F O2 % BldC Oximetry 98 % BMI (Body Mass Index) 22.4 kg/m2 12/19/2017 3:31pm Height 58 inches 4'10" Weight 111.00 lb Heart Rate 74 /min BP Systolic Sitting 130 mmHg BP Diastolic Sitting 80 mmHg Body Temperature 97.1 F O2 % BldC Oximetry 94 % BMI (Body Mass Index) 23.2 kg/m2 11/17/2017 11:11am Weight 109.00 lb Heart Rate 84 /min BP Systolic 137 mmHg BP Diastolic 78 mmHg Body Temperature 98.7 F O2 % BldC Oximetry 98 % 09/12/2017 2:05pm Weight 108.00 lb Heart Rate 78 /min BP Systolic Sitting 119 mmHg BP Diastolic Sitting 85 mmHg Body Temperature 97.5 F O2 % BldC Oximetry 89 % 04/08/2017 12:42pm Height 47.50 inches 3'11.50" Weight 107.00 lb no shoes Heart Rate 78 /min BP Systolic Sitting 148 mmHg Rue reg cuff BP Diastolic Sitting 88 mmHg Rue reg cuff BP Systolic Standing 138 mmHg Rue reg cuff BP Diastolic Standing 84 mmHg Rue reg cuff Respiratory Rate 17 /min BMI (Body Mass Index) 33.3 kg/m2 Ejection Fraction 50-55% date 01/13/2015 ECHO 03/23/2017 11:51am Weight 102.50 lb Heart Rate 62 /min BP Systolic Sitting 114 mmHg BP Diastolic Sitting 72 mmHg Body Temperature 97.8 F O2 % BldC Oximetry 95 % 03/12/2016 8:32am Height 57.25 inches 4'9.25" Weight 118.00 lb Heart Rate 64 /min BP Systolic Sitting 128 mmHg left arm, reg cuff BP Diastolic Sitting 82 mmHg left arm, reg cuff BP Systolic Standing 118 mmHg left arm, reg cuff BP Diastolic Standing 82 mmHg left arm, reg cuff Respiratory Rate 16 /min BMI (Body Mass Index) 25.3 kg/m2 Ejection Fraction 50-55% 01/13/15 07/14/2015 10:55am Height 57.25 inches 4'9.25" Weight 119.75 lb w/o shoes Heart Rate 70 /min reg BP Systolic Sitting 116 mmHg Lue, reg cuff BP Diastolic Sitting 86 mmHg Lue, reg cuff BP Systolic Standing 120 mmHg Lue BP Diastolic Standing 84 mmHg Lue Respiratory Rate 18 /min BMI (Body Mass Index) 25.7 kg/m2 Ejection Fraction 50-55% as of 01/13/15 echo 01/28/2015 1:12pm Height 57.25 inches 4'9.25" Weight 125.00 lb Heart Rate 60 /min BP Systolic Sitting 154 mmHg LA reg cuff BP Diastolic Sitting 102 mmHg LA reg cuff BP Systolic Standing 152 mmHg LA BP Diastolic Standing 98 mmHg LA Respiratory Rate 16 /min BMI (Body Mass Index) 26.8 kg/m2 Ejection Fraction 50-55% 01/13/15 01/03/2015 2:03pm Height 58.75 inches 4'10.75" Weight 126.00 lb [...] Ejection Fraction 35-40% 10/30/14 Results Test Date Facility Test Result H/L Range Note Laboratory test 01/04/2019 [facility] Vitamin B12 208 pg/mL Normal 180-[address] [place] [address] [phone] Lipid Profile 01/04/2019 [facility] Triglycerides 126 mg/dL 2 (Trig/Chol/HDL) [address] [place] [address] [phone] Cholesterol 156 mg/dL 3 HDL Cholesterol 51.9 mg/dL 4 LDL Cholesterol 79 mg/dL 5 CBC Auto 01/04/2019 [facility] White Blood 6.0 10^3/uL Normal 3.5-10.[address] [place] [address] [phone] Red Blood Count 3.84 10^6/uL Normal 3.70-4.87 Hemoglobin 11.8 g/dL Low 12.0-16.0 Hematocrit 35 % Normal 35-47 Mean Corpuscular Volume 90 fL Normal 80-97 Mean Corpuscular Hemoglobin 31 pg Normal 27-31 Mean Corpuscular HGB Conc 34 g/dL Normal 31-36 Red Cell Distribution Width 15 % Normal 10.5-15 Platelet Count 162 10^3/uL Normal 150-450 Mean Platelet Volume 6.7 fL Low 7.4-10.4 Abs Neutrophils 4.0 10^3/uL Normal 1.5-7.7 Abs Lymphocytes 1.1 10^3/uL Normal 1.0-4.8 Abs Monocytes 0.6 10^3/uL Normal 0-0.8 Abs Eosinophils 0.3 10^3/uL Normal 0-0.6 Abs Basophils 0.0 10^3/uL Normal 0-0.2 Abs Nucleated RBC 0.0 10^3/uL Granulocyte % 65.8 % Lymphocyte % 18.0 % Monocyte % 10.3 % Eosinophil % 5.4 % Basophil % 0.5 % Nucleated Red Blood Cells % 0.2 Laboratory test 01/04/2019 [facility] Ferritin 118.8 Normal 11 -307 [address] ng/[place] [address] [phone] Laboratory test 01/04/2019 [facility] TSH (Thyroid 3.37 Normal 0.34-5.60 [address] Stim Horm) mcIU/[place] [address] [phone] Basic Metabolic 01/04/2019 [facility] Sodium 142 Normal 135- [address] mmol/[place] [address] [phone] Potassium 4.7 mmol/L Normal 3.5-5.0 Chloride 109 mmol/L Normal 101-111 Co2 Carbon Dioxide 26 mmol/L Normal 22-32 Anion Gap 7 mmol/L Normal 2-11 Glucose 96 mg/dL Normal 70-100 Blood Urea Nitrogen 27 mg/dL High 6-24 Creatinine 1.21 mg/dL High 0.51-0.95 BUN/Creatinine Ratio 22.3 High 8-20 Calcium 9.1 mg/dL Normal 8.6-10.3 Egfr Non- 42.0 >60 Egfr 50.8 >60 8 Wound 07/10/2018 [facility] Wound/Misc SEE RESULT 9 Culture/Sensi [address] [address] Stain [phone] Laboratory test 06/23/2018 [facility] Erythrocyte Sed 32 mm/Hr Normal 0-[address] [place] [address] [phone] Prealbumin 19 mg/dL Normal 18-38 Iron & Iron Binding 06/23/2018 [facility] Iron 70 g/dL Normal 50-[address] [place], [place] [id number] [phone] Unsaturated Iron Binding 167 g/dL Total Iron Binding Capacity 237 g/dL Low 250-450 Transferrin 169 mg/dL Low 203-362 % Iron Saturation 30 % Normal 15-55 Laboratory test 06/23/2018 [facility] C Reactive 2.68 mg/L Normal <8.[address] [place] [address] [phone] Ferritin 104.0 ng/mL Normal 11-307 Vitamin B12 236 pg/mL Normal 180-914 10 Zinc Serum 0.71 g/mL 0.66-1.10 11 Laboratory test 06/08/2018 [facility] C Reactive 9.30 mg/L High <8.[address] [place] [address] [phone] Comp Metabolic 06/08/2018 [facility] Sodium 143 Normal 135- [address] mmol/[place] [address] [phone] Potassium 4.2 mmol/L Normal 3.5-5.0 Chloride 111 mmol/L Normal 101-111 Co2 Carbon Dioxide 26 mmol/L Normal 22-32 Anion Gap 6 mmol/L Normal 2-11 Glucose 83 mg/dL Normal 70-100 Blood Urea Nitrogen 22 mg/dL Normal 6-24 Creatinine 1.27 mg/dL High 0.51-0.95 BUN/Creatinine Ratio 17.3 Normal 8-20 Calcium 8.6 mg/dL Normal 8.6-10.3 Total Protein 6.1 g/dL Low 6.4-8.9 Albumin 3.9 g/dL Normal 3.2-5.2 Globulin 2.2 g/dL Normal 2-4 Albumin/Globulin Ratio 1.8 Normal 1-3 Total Bilirubin 0.50 mg/dL Normal 0.2-1.0 Alkaline Phosphatase 71 U/L Normal 34-104 Alt 6 U/L Low 7-52 Ast 13 U/L Normal 13-39 Egfr Non- 39.8 >60 Egfr 48.2 >60 12 CBC Auto 06/08/2018 [facility] White Blood 4.1 10^3/uL Normal 3.5-10.[address] Count [place], [place] [id number] [phone] Red Blood Count 3.46 10^6/uL Low 4.00-5.40 Hemoglobin 10.4 g/dL Low 12.0-16.0 Hematocrit 31 % Low 35-47 Mean Corpuscular Volume 89 fL Normal 80-97 Mean Corpuscular Hemoglobin 30 pg Normal 27-31 Mean Corpuscular HGB Conc 34 g/dL Normal 31-36 Red Cell Distribution Width 16 % High 10.5-15 Platelet Count 152 10^3/uL Normal 150-450 Mean Platelet Volume 6.4 um3 Low 7.4-10.4 Abs Neutrophils 2.2 10^3/uL Normal 1.5-7.7 Abs Lymphocytes 1.0 10^3/uL Normal 1.0-4.8 Abs Monocytes 0.5 10^3/uL Normal 0-0.8 Abs Eosinophils 0.3 10^3/uL Normal 0-0.6 Abs Basophils 0 10^3/uL Normal 0-0.2 Abs Nucleated RBC 0 10^3/uL Granulocyte % 54.9 % Normal 38-83 Lymphocyte % 25.5 % Normal 25-47 Monocyte % 12.4 % High 0-7 Eosinophil % 6.7 % High 0-6 Basophil % 0.5 % Normal 0-2 Nucleated Red Blood Cells % 0.5 Laboratory 06/08/2018 [facility] D Dimer 235 ng/mL High Less 13 test finding [address] Quantitative Than [place], [place] [id number] [phone] CBC Auto Diff 04/28/2018 [facility] White Blood 7.2 Normal 3.5 -10. [address] Count 10^3/uL 8 [place], [place] [id number] [phone] Red Blood Count 3.82 10^6/uL Low 4.00-5.40 Hemoglobin 11.6 g/dL Low 12.0-16.0 Hematocrit 34 % Low 35-47 Mean Corpuscular Volume 90 fL Normal 80-97 Mean Corpuscular Hemoglobin 31 pg Normal 27-31 Mean Corpuscular HGB Conc 34 g/dL Normal 31-36 Red Cell Distribution Width 15 % Normal 10.5-15 Platelet Count 175 10^3/uL Normal 150-450 Mean Platelet Volume 6.5 um3 Low 7.4-10.4 Abs Neutrophils 4.9 10^3/uL Normal 1.5-7.7 Abs Lymphocytes 1.2 10^3/uL Normal 1.0-4.8 Abs Monocytes 0.6 10^3/uL Normal 0-0.8 Abs Eosinophils 0.4 10^3/uL Normal 0-0.6 Abs Basophils 0 10^3/uL Normal 0-0.2 Abs Nucleated RBC 0 10^3/uL Granulocyte % 68.0 % Normal 38-83 Lymphocyte % 16.5 % Low 25-47 Monocyte % 8.8 % High 0-7 Eosinophil % 6.1 % High 0-6 Basophil % 0.6 % Normal 0-2 Nucleated Red Blood Cells % 0.2 Inr/Protime 04/28/2018 [facility] Inr 0.94 Normal 0.77-1.[address] [place] [address] [phone] Laboratory test 04/28/2018 [facility] Lactic Acid 0.6 Normal 0.5-2.0 [address] mmol/[place] [address] [phone] Comp Metabolic 04/28/2018 [facility] Sodium 141 Normal 135- [address] mmol/[place] [address] [phone] Potassium 4.2 mmol/L Normal 3.5-5.0 Chloride 110 mmol/L Normal 101-111 Co2 Carbon Dioxide 24 mmol/L Normal 22-32 Anion Gap 7 mmol/L Normal 2-11 Glucose 95 mg/dL Normal 70-100 Blood Urea Nitrogen 26 mg/dL High 6-24 Creatinine 1.23 mg/dL High 0.51-0.95 BUN/Creatinine Ratio 21.1 High 8-20 Calcium 8.9 mg/dL Normal 8.6-10.3 Total Protein 6.5 g/dL Normal 6.4-8.9 Albumin 3.9 g/dL Normal 3.2-5.2 Globulin 2.6 g/dL Normal 2-4 Albumin/Globulin Ratio 1.5 Normal 1-3 Total Bilirubin 0.70 mg/dL Normal 0.2-1.0 Alkaline Phosphatase 68 U/L Normal 34-104 Alt 11 U/L Normal 7-52 Ast 19 U/L Normal 13-39 Egfr Non- 41.3 >60 Egfr 50.0 >60 15 Laboratory 04/28/2018 [facility] Troponin-I 0.65 Critical < 0.[address] (TnI) ng/[place] [address] [phone] TSH (Thyroid Stim Horm) 3.19 mcIU/mL Normal 0.34-5.60 Urinalysis Profile 04/28/2018 [facility] Urine Color Yellow [address] [place] [address] [phone] Urine Appearance Clear Urine Specific [place] 1.015 Normal 1.010-1.030 Urine pH 5.0 Normal 5-9 Urine Urobilinogen Negative Negative Urine Ketones Negative Negative Urine Protein Negative Negative Urine Leukocytes 2+ Abnormal Negative Urine Blood 1+ Abnormal Negative Urine Nitrite Negative Negative Urine Bilirubin Negative Negative Urine Glucose Negative Negative Urine White Blood Cell 2+(11-20/hpf) Abnormal Absent Urine Red Blood Cell 1+(3-5/hpf) Abnormal Absent Urine Bacteria Absent Absent Urine Squamous Epithelial Cell Present Abnormal Absent Urine Culture And 04/28/2018 [facility] Urine Culture SEE RESULT [address] [place] [address] [phone] Lipid Profile 03/16/2018 [facility] Triglycerides 86 mg/dL 18 (Trig/Chol/HDL) [address] [place] [address] [phone] Cholesterol 144 mg/dL 19 HDL Cholesterol 44.9 mg/dL 20 LDL Cholesterol 82 mg/dL 21 Laboratory test 03/16/2018 [facility] Creatine 57 U/L Normal 10-[address] Kinase(CK) [place] [address] [phone] Ast (Sgot) 13 U/L Normal 13-39 23 Ssa/SSB Abs Igg 03/16/2018 [facility] SS-A/Ro Antibody <0.2 U [address] [place] [address] [phone] SS-B/La Antibody <0.2 U 25 CBC Auto 12/17/2017 [facility] White Blood 6.2 10^3/uL Normal 3.5-10.[address] [place] [address] [phone] Red Blood Count 3.61 10^6/uL Low 4.0-5.4 Hemoglobin 11.0 g/dL Low 12.0-16.0 Hematocrit 33 % Low 35-47 Mean Corpuscular Volume 92 fL Normal 80-97 Mean Corpuscular Hemoglobin 30 pg Normal 27-31 Mean Corpuscular HGB Conc 33 g/dL Normal 31-36 Red Cell Distribution Width 15 % Normal 10.5-15 Platelet Count 213 10^3/uL Normal 150-450 Mean Platelet Volume 7.1 um3 Low 7.4-10.4 Abs Neutrophils 4.0 10^3/uL Normal 1.5-7.7 Abs Lymphocytes 1.2 10^3/uL Normal 1.0-4.8 Abs Monocytes 0.6 10^3/uL Normal 0-0.8 Abs Eosinophils 0.4 10^3/uL Normal 0-0.6 Abs Basophils 0 10^3/uL Normal 0-0.2 Abs Nucleated RBC 0 10^3/uL Granulocyte % 64.9 % Normal 38-83 Lymphocyte % 19.0 % Low 25-47 Monocyte % 9.0 % High 0-7 Eosinophil % 6.7 % High 0-6 Basophil % 0.4 % Normal 0-2 Nucleated Red Blood Cells % 0 Laboratory test 12/17/2017 [facility] Vitamin B12 293 pg/mL Normal 180-914 [address] [place] [address] [phone] Iron & Iron 12/17/2017 [facility] Iron 82 g/dL Normal 50- [address] [place] [address] [phone] Unsaturated Iron Binding 142 g/dL Total Iron Binding Capacity 224 g/dL Low 250-450 Transferrin 160 mg/dL Low 203-362 % Iron Saturation 37 % Normal 15-55 Basic Metabolic 12/17/2017 [facility] Sodium 143 mmol/L Normal 139-[address] [place] [address] [phone] Potassium 4.7 mmol/L Normal 3.5-5.0 Co2 Carbon Dioxide 25 mmol/L Normal 22-32 Glucose 90 mg/dL Normal 70-100 Blood Urea Nitrogen 32 mg/dL High 6-24 Creatinine 1.47 mg/dL High 0.51-0.95 BUN/Creatinine Ratio 21.8 High 8-20 Calcium 8.7 mg/dL Normal 8.6-10.3 Egfr Non- 33.6 >60 Egfr 43.2 >60 27 Chloride 112 mmol/L High 101-111 Anion Gap 6 mmol/L Normal 2-11 Laboratory test 12/17/2017 [facility] C Reactive 3.32 mg/L Normal < 5.[address] [place] [address] [phone] Erythrocyte Sed Rate 39 mm/Hr Normal 0-40 29 Rheumatoid Factor 48 IU/mL Abnormal 0-14 30 Laboratory 10/07/2017 [facility] Surgical SEE RESULT 31, 32 test finding [address] [place] [address] [phone] Laboratory 08/16/2017 [facility] Surgical SEE RESULT 33 test finding [address] [place] [address] [phone] Lipid Profile 04/15/2017 [facility] Triglycerides 149 mg/dL Normal 34 (Trig/Chol/HDL [address] ) [place] [address] [phone] Cholesterol 138 mg/dL Normal 35 HDL Cholesterol 39.4 mg/dL Normal 36 LDL Cholesterol 69 mg/dL Normal 37 Laboratory test 04/15/2017 [facility] Ast (Sgot) 15 U/L Normal 13-39 [address] [place] [address] [phone] Creatine Kinase(CK) 35 U/L Normal 10-223 39 C Reactive Protein 8.92 mg/L High < 5.00 40 CBC Auto 03/18/2017 [facility] White Blood 6.6 10^3/uL Normal 3.5-10.[address] [place] [address] [phone] Red Blood Count 3.33 10^6/uL Low 4.0-5.4 Hemoglobin 10.1 g/dL Low 12.0-16.0 Hematocrit 31 % Low 35-47 Mean Corpuscular Volume 94 fL Normal 80-97 Mean Corpuscular Hemoglobin 30 pg Normal 27-31 Mean Corpuscular HGB Conc 32 g/dL Normal 31-36 Red Cell Distribution Width 14 % Normal 10.5-15 Platelet Count 376 10^3/uL Normal 150-450 Mean Platelet Volume 7 um3 Low 7.4-10.4 Abs Neutrophils 4.8 10^3/uL Normal 1.5-7.7 Abs Lymphocytes 0.8 10^3/uL Low 1.0-4.8 Abs Monocytes 0.6 10^3/uL Normal 0-0.8 Abs Eosinophils 0.3 10^3/uL Normal 0-0.6 Abs Basophils 0 10^3/uL Normal 0-0.2 Abs Nucleated RBC 0 10^3/uL Normal Granulocyte % 73.2 % Normal 38-83 Lymphocyte % 12.0 % Low 25-47 Monocyte % 9.4 % High 1-9 Eosinophil % 4.7 % Normal 0-6 Basophil % 0.7 % Normal 0-2 Nucleated Red Blood Cells % 0 Normal Laboratory test 03/18/2017 [facility] C Reactive 86.17 High < 5.00 [address] Protein mg/[place] [address] [phone] Basic Metabolic 03/18/2017 [facility] Sodium 135 Normal 133- [address] mmol/[place] [address] [phone] Potassium 4.8 mmol/L Normal 3.5-5.0 Chloride 105 mmol/L Normal 101-111 Co2 Carbon Dioxide 22 mmol/L Normal 22-32 Anion Gap 8 mmol/L Normal 2-11 Glucose 131 mg/dL High 70-100 Blood Urea Nitrogen 34 mg/dL High 6-24 Creatinine 1.63 mg/dL High 0.51-0.95 BUN/Creatinine Ratio 20.9 High 8-20 Calcium 8.3 mg/dL Low 8.6-10.3 Egfr Non- 29.9 Normal >60 Egfr 38.5 Normal >60 42 Comp Metabolic 03/08/2017 [facility] Sodium 135 mmol/L Normal 133-[address] [facility] [place] [address] [phone] Potassium 4.3 mmol/L Normal 3.5-5.0 Chloride 108 mmol/L Normal 101-111 Co2 Carbon Dioxide 18 mmol/L Low 22-32 Anion Gap 9 mmol/L Normal 2-11 Glucose 153 mg/dL High 70-100 Blood Urea Nitrogen 49 mg/dL High 6-24 Creatinine 2.23 mg/dL High 0.51-0.95 BUN/Creatinine Ratio 22.0 High 8-20 Calcium 8.7 mg/dL Normal 8.6-10.3 Total Protein 6.2 g/dL Low 6.4-8.9 Albumin 3.1 g/dL Low 3.2-5.2 Globulin 3.1 g/dL Normal 2-4 Albumin/Globulin Ratio 1.0 Normal 1-3 Total Bilirubin 0.50 mg/dL Normal 0.2-1.0 Alkaline Phosphatase 52 U/L Normal 34-104 Alt 13 U/L Normal 7-52 Ast 13 U/L Normal 13-39 Egfr Non- 20.8 Normal >60 Egfr 26.8 Normal >60 43 Laboratory test 03/08/2017 [facility] Lipase 11 U/L Normal 11.0-82.0 finding [address] [place] [address] [phone] C Reactive Protein 208.47 mg/L High < 5.00 44 Lactic Acid 0.7 mmol/L Normal 0.5-2.0 45 CBC Auto 03/08/2017 [facility] White Blood 15.3 10^3/uL High 3.5-10.[address] [place] [address] [phone] Red Blood Count 3.65 10^6/uL Low 4.0-5.4 Hemoglobin 11.1 g/dL Low 12.0-16.0 Hematocrit 34 % Low 35-47 Mean Corpuscular Volume 94 fL Normal 80-97 Mean Corpuscular Hemoglobin 30 pg Normal 27-31 Mean Corpuscular HGB Conc 32 g/dL Normal 31-36 Red Cell Distribution Width 14 % Normal 10.5-15 Platelet Count 172 10^3/uL Normal 150-450 Mean Platelet Volume 8 um3 Normal 7.4-10.4 Abs Neutrophils 12.7 10^3/uL High 1.5-7.7 Abs Lymphocytes 0.9 10^3/uL Low 1.0-4.8 Abs Monocytes 1.5 10^3/uL High 0-0.8 Abs Eosinophils 0.2 10^3/uL Normal 0-0.6 Abs Basophils 0.1 10^3/uL Normal 0-0.2 Abs Nucleated RBC 0.01 10^3/uL Normal Granulocyte % 82.8 % Normal 38-83 Lymphocyte % 5.6 % Low 25-47 Monocyte % 9.7 % High 1-9 Eosinophil % 1.5 % Normal 0-6 Basophil % 0.4 % Normal 0-2 Nucleated Red Blood Cells % 0 Normal Urine Culture And 03/08/2017 [facility] Urine SEE RESULT [address] [place] [address] [phone] Urinalysis Profile 03/08/2017 [facility] Urine Color Yellow Normal [address] [place] [address] [phone] Urine Appearance Cloudy Normal Urine Specific [place] 1.010 Normal 1.010-1.030 Urine pH 5.0 Normal 5-9 Urine Urobilinogen Negative Normal Negative Urine Ketones Negative Normal Negative Urine Protein Negative Normal Negative Urine Leukocytes 1+ Abnormal Negative Urine Blood 1+ Abnormal Negative Urine Nitrite Negative Normal Negative Urine Bilirubin Negative Normal Negative Urine Glucose Negative Normal Negative Urine White Blood Cell 1+(6-10/hpf) Abnormal Absent Urine Red Blood Cell Trace(0-2/hpf) Normal Absent Urine Bacteria 1+ Abnormal Absent Urine Squamous Epithelial Cell Present Abnormal Absent Laboratory test 01/17/2015 [facility] B-Type 228 pg/mL High [address] [place] [address] Peptide BNP [phone] Basic Metabolic 01/17/2015 [facility] Sodium 141 mmol/L Normal 133- Panel [address] [place] [address] [phone] Potassium 4.0 mmol/L Normal 3.5-5.0 Chloride 112 mmol/L High 101-111 Co2 Carbon Dioxide 24 mmol/L Normal 22-32 Anion Gap 5 mmol/L Normal 2-11 Glucose 124 mg/dL High 70-100 Blood Urea Nitrogen 26 mg/dL High 6-24 Creatinine 1.33 mg/dL High 0.51-0.95 BUN/Creatinine Ratio 19.5 Normal 8-20 Calcium 8.6 mg/dL Normal 8.6-10.3 Egfr Non- 38.0 Normal >60 Egfr 48.9 Normal >60 48 1 Normal Range 180 to 914 Indeterminate Range 145 to 180 Deficient Range <145 2 Desirable: <150 Borderline High: 150-199 High: 200-499 Very High: >500 3 Desirable: <200 Borderline High: 200-239 High: >239 4 Low: <40 Desirable: 40-60 High: >60 5 Desirable: <100 Near Optimal: 100-129 Borderline High: 130-159 High: 160-189 Very High: >189 6 FASTING 10 HOUR 7 FASTING 10 HOUR 8 Because ethnic data is not always readily [...] 15-29 5 Kidney failure <15 (or dialysis) 9 SEE RESULT BELOW Name: RITO GRANDADENNIS Hollis : [address]: Adriana Ellis NP Acct: [id number] Unit: [id number] AGE: 87 Location: WOUND Re07/10/18 SEX: F Status: REG REF SPEC: [id number] PONCE: 07/10/[address] [facility] [address]: Adriana Ellis [employer] DEVELOPER REQ: [id number] RECD: 07/10/18 STATUS: ELEAZAR OMALLEY DR: Aman Urena MD _ SOURCE: LEG,LEFT SPDESC: ORDERED: Culture Stain Procedure Result Reported Site Wound/Misc Gram Stain Final 07/10/18- 1658 ML 2+ Epithelial Cells 1+ Neutrophils 2+ Gram Positive Cocci Wound/Misc Culture Final 07/12/18- 1026 ML Organism 1 STAPHYLOCOCCUS AUREUS Quantity 3+ 1. STAPHYLOCOCCUS AUREUS M.I.C. RX --------- ------ Penicillin >=0.5 R Clindamycin R This isolate is presumed to be resistant based on detection of inducible Clindamycin resistance. Clindamycin may still be effective in some patients. Erythromycin >=8 R Gentamicin <=0.5 S Linezolid 2 S Oxacillin 0.5 S * Quinupristin/Dalfopristin 0.5 S Rifampin <=0.5 S Tetracycline <=1 S Doxycycline - Deduced S * Minocycline - Deduced S Trimethoprim/Sulfamethoxazole <=10 S Vancomycin 1 S Imipenem-Deduced S * Ampicillin/Sulbactam-Deduced S CONTINUED ON NEXT PAGE DEPARTMENT OF PATHOLOGY, [address] [place] [address] Jozef De Oliveira M.D. Director [facility] # [id number] Patient: ANALILIA GRANDA [id number] (Continued) Specimen: [id number] Collected: 07/10/18160 Received: 07/10/18-161 (Continued) Procedure Result Reported Site Wound/Misc Culture Final (continued) 07/12/18- 1026 1. STAPHYLOCOCCUS AUREUS (continued) M.I.C. RX --------- ------ Cefazolin-Deduced S * These antibiotics are not available in the [facility] Formulary Contact the Microbiology Department for any additional antibiotic reporting. * ML - Main Lab . END OF REPORT DEPARTMENT OF PATHOLOGY, [address] [place] [address] Jozef De Oliveira M.D. Director [facility] # [id number] 10 Normal Range 180 to 914 Indeterminate Range 145 to 180 Deficient Range <145 11 ADDITIONAL INFORMATION This test was developed and its performance characteristics determined by [facility] in a manner consistent with CLIA requirements. This test has not been cleared or approved by the U.S. Food and Drug Administration. Test Performed by: [facility] - [address] [address] 12 Because ethnic data is not always readily [...] 15-29 5 Kidney failure <15 (or dialysis) 13 Please note: The following may produce a false positive D Dimer test: - Rheumatoid factor greater than 60 IU/ml - Plasma hemoglobin greater than 0.05 gm/dl - Bilirubin greater than 50 mg/dl - Lipids greater than 1000 mg/dl - FDP greater than 20 ug/ml 14 [facility] Severe Sepsis and Septic Shock Management Bundle Measure requires all lactic acids initially measuring >2.0 mmol/L be repeated. 15 Because ethnic data is not always readily [...] 15-29 5 Kidney failure <15 (or dialysis) 16 Result TnIDx:0.65 Called to [id number] at: 17:38:10 by:[email or web address] Read back by: [email or web address] 17 SEE RESULT BELOW Name: ANALILIA GRANDA : [address]: Anish Hurt MD Acct: [id number] Unit: [id number] AGE: 87 Location: [place] [id number] Re04/29/18 SEX: F Status: ADM IN SPEC: [id number] PONCE: 04/29/18-[address] [facility] [address]: Willy Felder MD REQ: [id number] RECD: 04/29/18 STATUS: ELEAZAR OMALLEY DR: Aman Urena MD _ SOURCE: URINE SPDESC: ORDERED: Urine Culture Procedure Result Reported Site Urine Culture Final 04/30/18- 0940 ML Mixed estefany; possible contamination. Suggest resubmission. * ML - Main Lab . END OF REPORT DEPARTMENT OF PATHOLOGY, [address] [place] [address] Jozef De Oliveira M.D. Director [facility] # [id number] 18 Desirable: <150 Borderline High: 150-199 High: 200-499 Very High: >500 19 Desirable: <200 Borderline High: 200-239 High: >239 20 Low: <40 Desirable: 40-60 High: >60 21 Desirable: <100 Near Optimal: 100-129 Borderline High: 130-159 High: 160-189 Very High: >189 22 FASTING 10 HOUR 23 FASTING 10 HOUR 24 REFERENCE VALUE <1.0 (Negative) 25 REFERENCE VALUE <1.0 (Negative) Test Performed by: [address] [id number] 26 Normal Range 180 to 914 Indeterminate Range 145 to 180 Deficient Range <145 27 Because ethnic data is not always readily [...] 15-29 5 Kidney failure <15 (or dialysis) 28 Acute inflammation: >10.00 29 FASTING 10 HOUR 30 Performed by [facility], [address] [place] [id number] [email or web address], Seng Laws MD - Lab. Director Test Performed by: [facility] [address] [place] [id number] 32 SEE RESULT BELOW Name: ANALILIA GRANDA : [address]: Edi Sheikh MD Acct: [id number] Unit: [id number] AGE: 87 Location: [employer] Re10/07/17 SEX: F Status: REG REF SPEC: [id number] PONCE: 10/07/[address] [facility] [address]: Edi Sheikh MD REQ: [id number] RECD: 10/07/17 STATUS: JANET OMALLEY DR: Aman Berry MD _ ORDERED: LEVEL 4 COMMENTS: [id number] FINAL DIAGNOSIS Skin, left leg, excision: -- Invasive squamous cell carcinoma, well-differentiated. -- All margins are clear. PRE-OPERATIVE DIAGNOSIS Basal cell carcinoma/squamous cell carcinoma; suture del cid 12 o?clock proximal apex margin GROSS DESCRIPTION The specimen is received in formalin labeled, Excision Nonhealing Lesion Left Leg, Suture Del Cid 12:00 Proximal [place] Margin, and consists of a 4.3 x [...] Merino MD 0949 END OF REPORT * ML = Testing performed at Main Lab DEPARTMENT OF PATHOLOGY, [address] [place] [address] Jozef De Oliveira M.D. Director [facility] # [id number] 33 SEE RESULT BELOW Name: ANALILIA GRANDA : [address]: Edi Sheikh MD Acct: [id number] Unit: [id number] AGE: 86 Location: [place] Re08/16/17 SEX: F Status: JULIO OHRNE SPEC: [id number] PONCE: 08/16/[address] [facility] [address]: Edi Sheikh MD REQ: [id number] RECD: 08/16/17 STATUS: JANET OMALLEY DR: Aman Berry MD _ ORDERED: FS 1ST PER SPEC, FS ADD PER SPEC/3, LEVEL 4 FINAL DIAGNOSIS Skin, left cheek, excision: -- Scar and residual actinic change. -- No evidence of residual invasive squamous cell carcinoma. -- Incidental basal cell carcinoma, superficial and nodular type. -- All margins are clear. COMMENT: The previous lesion at this site ([id number]) has been completely excised. PATHOLOGY SURGICAL CONSULT Frozen section (FS)/Touch Prep (TP)/Gross Consult (GC) FS) Skin, left cheek orbital, excision: a. Actinic change of prior biopsy site. (DS) b. Incidental focus of basal cell carcinoma. (DS) c. Margins clear. (DS) Dr Sheikh notified on 08/16/17 at 1750. [...] half black, CONTINUED ON NEXT PAGE * ML = Testing performed at Main Lab DEPARTMENT OF PATHOLOGY, [address] [place] [address] Jozef De Oliveira M.D. Director [facility] # [id number] RUN DATE: 08/17/17 [facility] LAB LIVE PAGE 2 Patient: ANALILIA GRANDA [id number] (Continued) GROSS DESCRIPTION (Continued) GROSS DESCRIPTION (Continued) 3:00 half blue and 12:00 end green, serially sectioned from 12:00 to 6:00 and entirely submitted for frozen section microscopy. The frozen section residue is submitted in cassettes FSA through [facility] to include ends in cassette FSA. Signed (signature on file) Anais Merino MD 1350 END OF REPORT * ML = Testing performed at Main Lab DEPARTMENT OF PATHOLOGY, [address] [place] [address] Jozef De Oliveira M.D. Director [facility] # [id number] 34 Desirable <150 Borderline high 150-199 High 200-499 Very High >500 35 Desirable <200 Borderline high 200-239 High >239 36 Low <40 Desirable: 40-60 High: >60 37 Desirable: <100 mg/dL Near Optimal: 100-129 mg/dL Borderline High: 130-159 mg/dL High: 160-189 mg/dL Very High: >189 mg/dL 38 FASTING Copy Result to: STACI URENA ([id number]) 39 FASTING Copy Result to: STACI URENA ([id number]) 40 Acute inflammation: >10.00 41 Acute inflammation: >10.00 42 Because ethnic data is not always readily [...] 15-29 5 Kidney failure <15 (or dialysis) 43 Because ethnic data is not always readily [...] 15-29 5 Kidney failure <15 (or dialysis) 44 Acute inflammation: >10.00 45 [facility] Severe Sepsis and Septic Shock Management Bundle Measure requires all lactic acids initially measuring >2.0 mmol/L be repeated. 46 SEE RESULT BELOW Name: ANALILIA GRANDA : [address]: To Solano MD Acct: [id number] Unit: [id number] AGE: 86 Location: [place] [address]-02 Re03/09/17 Dis: 03/09/17 SEX: F Status: DIS Ni SPEC: [id number] PONCE: 03/09/17-[address]: Willy Felder MD REQ: [id number] RECD: 03/09/17 STATUS: LEEAZAR OMALLEY DR: Aman Urena MD _ SOURCE: URINE SPDESC: ORDERED: Urine Culture Procedure Result Reported Site Urine Culture Final 03/10/17- 1039 ML No growth of clinically significant organisms * ML - MAIN LAB ([facility]) . END OF REPORT * ML = Testing performed at Main Lab DEPARTMENT OF PATHOLOGY, [address] [place] [address] Jozef De Oliveira M.D. Director [facility] # [id number] 47 >100 to <200 pg/mL: likely compensated congestive heart failure (CHF) 200 to 400 pg/mL: likely moderate CHF >400 pg/mL: likely moderate to severe CHF 48 Because ethnic data is not always readily [...] Kidney failure <15 (or dialysis) Procedures Date Code Description Status 01/11/2019 59399 EKG Tracing & Interpretation Completed 07/10/2018 79728 Chemical Cautery Granulation Tissue Completed 06/12/2018 70401 EKG Tracing & Interpretation Completed 05/15/2018 37889 ECHO Transthoracic, Real-Time 2D With Doppler And Color Completed Flow 05/15/2018 97575 ECHO Transthoracic, Real-Time 2D With Doppler And Color Completed Flow 04/07/2018 06003 EKG Tracing & Interpretation Completed 03/27/2018 16686 ECHO Transthorasic Realtime 2D W Doppler & Color Flow Completed Hosp 03/27/2018 77505 EKG, Interpretation Only Completed 03/26/2018 55673 EKG, Interpretation Only Completed 03/20/2018 43441 EKG Tracing & Interpretation Completed 04/22/2017 [id number] Mammogram Completed 04/08/2017 50299 EKG Tracing & Interpretation Completed 04/19/2016 [id number] Mammogram Completed 07/14/2015 03368 EKG Tracing & Interpretation Completed 01/13/2015 06674 ECHO Transthoracic, Real-Time 2D With Doppler And Color Completed Flow 01/03/2015 06706 EKG Tracing & Interpretation Completed 02/06/2013 69121 ECHO Transthorasic Realtime 2D W Doppler & Color Flow Completed Hosp 02/06/2013 20896 EKG, Interpretation Only Completed 02/05/2013 61119164 Colonoscopy Completed 05/18/2007 [id number] Colonoscopy Completed Encounters Type Date Location Provider Dx Diagnosis Office Visit 02/08/2019 [facility] Yessi Reza, I51.81 Takotsubo 11:30a Of [facility] N.P. 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 syndrome I25.10 Athscl heart disease of [place] coronary artery w/o ang pctrs N18.3 Chronic kidney disease, stage 3 (moderate) I10 Essential (primary) hypertension K02.9 Dental caries, unspecified Office Visit 12/22/2018 11:20a [facility] Internal Melissa Santa MD Z00.00 [facility] for Medicine - [facility] general adult medical exam w/o abnormal findings I10 Essential (primary) hypertension D50.9 Iron deficiency anemia, unspecified F43.21 Adjustment disorder with depressed mood I42.9 Cardiomyopathy, unspecified N18.3 Chronic kidney disease, stage 3 (moderate) Office Visit 07/28/2018 3:15p Wound Care Adriana Ellis, I87.312 Chronic venous Center AT [facility] [place] DOMINGUEZ, RN, EMERGENCY TELECOMMUNICATIONS DISPATCHER-BC hypertension w ulcer of l low extrem 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 Office Visit 07/14/2018 3:15p Wound Care Guido Moreno.312 Chronic venous Center AT [facility] [place] [facility] w ulcer of l low extrem 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 I73.9 Peripheral vascular disease, unspecified E46 Unspecified protein-calorie malnutrition Office Visit 07/10/2018 3:30p Wound Care Guido Moreno.312 Chronic venous Center AT [facility] [place] [facility]IX[facility] w ulcer of l low extrem 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 E46 Unspecified protein-calorie malnutrition I73.89 Other specified peripheral vascular diseases Office Visit 06/30/2018 3:00p Wound Care Guido Moreno.312 Chronic venous Center AT [facility] [place] GARRISON MIX, [place] hypertension w ulcer of l low extrem 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 I73.89 Other specified peripheral vascular diseases E46 Unspecified protein-calorie malnutrition Office Visit 06/23/2018 2:00p Wound Care Guido Moreno.312 Chronic venous Center AT [facility] [place] [facility] hypertension w ulcer of l low extrem 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 E46 Unspecified protein-calorie malnutrition I73.89 Other specified peripheral vascular diseases Office Visit 06/12/2018 Nadia Dillard, I42.9 Cardiomyopathy, 4:00p Cardiology Of [place] unspecified [facility] I25.10 Athscl heart disease of [place] coronary artery w/o ang pctrs I87.2 Venous insufficiency (chronic) (peripheral) I10 Essential (primary) hypertension 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 Office Visit 06/07/2018 4:20p [facility] Aman Hassan I82.412 Acute embolism Vincent Urena M.D.,FACP and thrombosis [address] of left femoral vein L97.829 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 severity Office Visit 05/25/2018 [facility] Aman Hassan D69.2 Other 3:00p Medicine - [place], nonthrombocytopenic [address] [place],FACP purpura Office Visit 05/10/2018 [facility] Aman Hassan I43 Cardiomyopathy in 1:40p Vincent Urena, diseases classified [address] [place],FACP elsewhere 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 Z23 Encounter for immunization Office Visit 04/30/2018 [facility] Anish Hurt, R41.0 Disorientation, 12:56p Assoc,pc unspecified Hospitalists R07.9 Chest pain, unspecified I16.0 Hypertensive urgency Office Visit 04/30/2018 9:02a [facility] Charan Gray R07.9 Chest pain , Of [facility] Mikey, DO unspecified FACC R41.0 Disorientation, unspecified Office Visit 04/29/2018 12:55p [facility] Anish Hurt, I21.4 Non-St elevation Assockenny MD (Nstemi) Hospitalists myocardial infarction I16.0 Hypertensive urgency I51.81 Takotsubo syndrome N18.4 Chronic kidney disease, stage 4 (severe) G45.4 Transient global amnesia Office Visit 04/29/2018 9:50a [facility] Charan Gray R07.9 Chest pain , [facility] Mikey, DO unspecified FACC R41.0 Disorientation, unspecified Office Visit 04/28/2018 [facility] Nivia R07.9 Chest pain, 12:55p Assoc,kenny Keen NP unspecified Hospitalists R41.0 Disorientation, unspecified I10 Essential (primary) hypertension K21.9 Gastro-esophageal reflux disease without esophagitis Office Visit 04/28/2018 [facility] Aamn Hassan F05 Delirium due to 3:40p Vincent Urena M.D.,FACP known physiological R condition Office Visit 04/07/2018 [facility] Dagmar Dillard, I25.10 Athscl heart 3:30p Cardiology Of [place] disease of [place] [facility] coronary artery w/o ang pctrs I21.4 Non-St elevation (Nstemi) myocardial infarction R94.31 Abnormal electrocardiogram [ECG] [EKG] Office Visit 04/06/2018 11:00a [facility] Brooks Hassan I43 Cardiomyopathy in Medicine - [place], M.D.,FACP diseases classified [address] elsewhere N18.3 Chronic kidney disease, stage 3 (moderate) Office Visit 03/31/2018 2:40p [facility] Winsome Rust, I21.4 Non-St elevation Assoc,pc N.P. (Nstemi) Hospitalists myocardial infarction I13.0 Hyp hrt & chr kdny dis w hrt fail and stg 1-4/unsp chr kdny N18.3 Chronic kidney disease, stage 3 (moderate) K21.9 Gastro-esophageal reflux disease without esophagitis Office Visit 03/30/2018 2:39p [facility] Winsome Rust, I21.4 Non-St elevation Assoc,pc N.P. (Nstemi) Hospitalists myocardial infarction J96.01 Acute respiratory failure with hypoxia I50.21 Acute systolic (congestive) heart failure I13.0 Hyp hrt & chr kdny dis w hrt fail and stg 1-4/unsp chr kdny N18.4 Chronic kidney disease, stage 4 (severe) I51.81 Takotsubo syndrome Office Visit 03/29/2018 2:39p [facility] Sammi Graff, I13.0 Hyp hrt & chr Assoc,pc AD[employer]BE FLEX DEVELOPER kdny dis w hrt Hospitalists fail and stg 1-4/unsp chr kdny J96.01 Acute respiratory failure with hypoxia I50.21 Acute systolic (congestive) heart failure I21.4 Non-St elevation (Nstemi) myocardial infarction N18.4 Chronic kidney disease, stage 4 (severe) Office Visit 03/28/2018 2:38p [facility] Annmarie I21.4 Non-St elevation Assoc,pc DO Chilo (Nstemi) Hospitalists myocardial infarction N18.4 Chronic kidney disease, stage 4 (severe) I13.0 Hyp hrt & chr kdny dis w hrt fail and stg 1-4/unsp chr kdny I12.9 Hypertensive chronic kidney disease w stg 1-4/unsp chr kdny I50.21 Acute systolic (congestive) heart failure J96.01 Acute respiratory failure with hypoxia Office Visit 03/27/2018 2:38p [facility] Bailee I21.4 Non-St elevation Assoc,pc Vilma Browne ([facility]) Hospitalists myocardial infarction N18.4 Chronic kidney disease, stage 4 (severe) I12.9 Hypertensive chronic kidney disease w stg 1-4/unsp chr kdny Office Visit 03/26/2018 2:37p [facility] Bailee I21.4 Non-St elevation Assockenny M.D. ([facility]) Hospitalists myocardial infarction N18.4 Chronic kidney disease, stage 4 (severe) I12.9 Hypertensive chronic kidney disease w stg 1-4/unsp chr kdny Office Visit 03/26/2018 [facility] Kaveh Payne I21.4 Non-St elevation 4:40p Vilma Escamilla ([facility]) myocardial infarction Office Visit 03/25/2018 [facility] Jann Pretty I21.4 Non-St elevation 2:36p Assoc,kenny BLANCHARD M.D. 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, unspecified hand E53.8 Deficiency of other specified B group vitamins D64.9 Anemia, unspecified Office Visit 02/01/2018 [facility] Aman Hassan Z01.810 Encounter for 11:40a Vincent Urena M.D.,FACP preprocedural Suite R cardiovascular examination H02.105 Unspecified ectropion of left lower eyelid I25.10 Athscl heart disease [place] coronary artery w/o ang pctrs I10 Essential (primary) hypertension Office Visit 11/17/2017 11:00a [facility] Internal Medicine - Elizabeth Campos, ADOBE FLEX DEVELOPER R05 Cough Suite R J20.9 Acute bronchitis, unspecified Office Visit 09/12/2017 2:10p [facility] Elizabeth J01.90 Acute sinusitis , Medicine - Derrick Campos, ADOBE FLEX DEVELOPER unspecified R Office Visit 04/08/2017 1:00p [facility] Dagmar Dillard, I25.10 Athscl heart Cardiology Of M.D. disease [place] [facility] coronary artery w/o ang pctrs I51.81 Takotsubo syndrome I10 Essential (primary) hypertension E78.5 Hyperlipidemia, unspecified Office Visit 03/23/2017 11:50a [facility] Aman Hassan R10.84 Generalized Vincent Urena M.D.,FACP abdominal pain Suite R Z87.19 Personal history of other diseases of the digestive system N18.2 Chronic kidney disease, stage 2 (mild) R22.33 Localized swelling, mass and lump, upper limb, bilateral Office Visit 03/09/2017 10:14a [facility] To R10.31 Right lower Assoc,kenny Solano M.D. quadrant pain Hospitalists Z87.19 Personal history of other diseases of the digestive system N17.0 Acute kidney failure with tubular necrosis N18.3 Chronic kidney disease, stage 3 (moderate) Office Visit 03/12/2016 8:40a [facility] Dagmar Dillard, I25.10 Athscl heart Of [facility] AT [facility] M.D. disease of [place] coronary artery w/o ang pctrs I10 Essential (primary) hypertension E78.5 Hyperlipidemia, unspecified Office Visit 07/14/2015 11:00a [facility] Dagmar Dillard, I25.10 Athscl heart Of [facility] M.D. disease of [place] coronary artery w/o ang pctrs I25.2 Old myocardial infarction I10 Essential (primary) hypertension E78.5 Hyperlipidemia, unspecified Office Visit 01/28/2015 [facility] Dagmar Dillard, 425.9 Cardiomyopathy 1:15p Cardiology Of M.D. Secondary [facility] Unspecified 401.9 Hypertension Unspec 424.2 Tricuspid Valve Disorder Spec as Nonrheumatic 414.01 Coronary Atherosclerosis [place] 782.3 Edema Office Visit 01/03/2015 2:00p [facility] Dagmar Dillard, 401.9 Hypertension Of [facility] M.D. Unspec 414.01 Coronary Atherosclerosis Agda[place] 459.81 Venous Insufficiency (Peripheral) Unspec 782.3 Edema 425.9 Cardiomyopathy Secondary Unspecified Office Visit 02/13/2013 12:29p [facility] 008.45 Clostridium Assoc,kenny Carlson D.O. Difficile Hospitalists 789.07 Pain Abdominal Generalized 401.9 Hypertension Unspec 493.10 Asthma Intrinsic Unspecified Office Visit 02/12/2013 12:29p [facility] Clostridium Assoc,kenny Carlson D.O. Difficile Hospitalists 789.07 Pain Abdominal Generalized 401.9 Hypertension Unspec 493.10 Asthma Intrinsic Unspecified Office Visit 02/12/2013 10:41a [facility] Papito Hassan 008.45 Clostridium For Infectious Vilma Diaz Difficile Diseases 787.91 Diarrhea 558.9 Gastroenteritis & Colitis Noninfectious Other Office Visit 02/11/2013 12:29p [facility] 008.[facility] Clostridium Assoc,kenny Carlson D.O. Difficile Hospitalists 789.07 Pain Abdominal Generalized 401.9 Hypertension Unspec 493.10 Asthma Intrinsic Unspecified Office Visit 02/10/2013 12:28p [facility] 008.[facility] Clostridium Assoc,kenny Carlson D.O. Difficile Hospitalists 789.07 Pain Abdominal Generalized 401.9 Hypertension Unspec 493.10 Asthma Intrinsic Unspecified Office Visit 02/09/2013 12:28p [facility] 008.45 Clostridium Assoc,kenny Carlson D.O. Difficile Hospitalists 789.07 Pain Abdominal Generalized 401.9 Hypertension Unspec 493.10 Asthma Intrinsic Unspecified Office [facility]/08[facility]2013 [facility] Clostridium Assoc,pc Bradley DO Difficile Hospitalists 789.07 Pain Abdominal Generalized 401.9 Hypertension Unspec 491.20 Bronchitis Obstructive Chronic W/O Acute Exacerbation Office Visit 02/07/2013 12:25p [facility] 008.[facility] Clostridium Assoc,pc Rootthalia, DO Difficile Hospitalists 789.07 Pain Abdominal Generalized 560.9 Intestinal Obstruction Unspec 401.9 Hypertension Unspec Office Visit 02/06/2013 [facility] Mackenzie 562.11 Diverticulitis 12:23p Assoc,pc DO Bradley Colon W/O Hospitalists Hemorrhage 560.9 Intestinal Obstruction Unspec 401.9 Hypertension Unspec 789.07 Pain Abdominal Generalized Office Visit 02/05/2013 [facility] [place] 562.11 Diverticulitis 12:23p Assockenny M.D. Colon W/O Hospitalists Hemorrhage 401.9 Hypertension Unspec 530.81 Esophageal Reflux 493.10 Asthma Intrinsic Unspecified Plan of Treatment Future Appointment(s):08/09/2019 1:50 pm - Dagmar Dillard M.D. at [facility]
[2019-05-27 10:20] LABS: ABS Basophils 0.1 10^3/ul (0-0.2); ABS Eosinophils 0.2 10^3/ul (0-0.6); ABS Lymphocytes 0.6 10^3/ul (1.0-4.8); ABS Monocytes 0.7 10^3/ul (0-0.8); ABS Neutrophils 18.6 10^3/ul (1.5-7.7); Eosinophil % 0.9 %; Hematocrit 33 % (35-47); Hemoglobin 11.3 g/dL (12.0-16.0); Lymphocyte % 2.8 %; Mean Corpuscular HGB Conc 34 g/dL (31-36); Mean Corpuscular Hemoglobin 31 pg (27-31); Mean Corpuscular Volume 90 fL (80-97); Mean Platelet Volume 7.1 fL (7.4-10.4); Platelet Count 143 10^3/uL (150-450); Red Blood Count 3.68 10^6 /uL (3.70-4.87); Red Cell Distribution Width 15 % (10-15); White Blood Count 20.1 10^3/uL (3.5-10.8)
[2019-05-27 10:35] LABS: Albumin 4.2 g/dL (3.2-5.2); Albumin/Globulin Ratio 1.7 (1-3); BUN/Creatinine Ratio 16.7 (8-20); C Reactive Protein 26.08 mg/L (<8.01); Calcium 8.9 mg/dL (8.6-10.3); EGFR African American 54.4 (>60); Globulin 2.5 g/dL (2-4); Magnesium 1.5 mg/dL (1.9-2.7); Potassium 3.8 mmol/L (3.5-5.0); Total Bilirubin 0.8 mg/dL (0.2-1.0); Total Protein 6.7 g/dL (6.4-8.9)
[2019-05-27 10:37] LABS: Troponin I 0.01 ng/mL (<0.04)
--- NOTE | 2019-05-27 11:19 | ED ---
Abdominal Pain/Female - HPI Summary HPI Summary: Patient is a 88-year-old female who presents emergency department for acute abdominal pain, vomiting and diarrhea that started early this morning. Patient resides at home with her son. Past medical history of hyperlipidemia, hypertension, CAD, IBS. Patient denies chest pain, shortness breath, cough, urinary symptoms.. Associated symptoms of fever. Symptoms are moderate in severity. No current modifying factors. - History of Current Complaint Chief Complaint: EDNauseaVomitDiarrh Stated Complaint: FEVER/NAUSEA/VOMITING PER PT DAUGHTER INLAW Time Seen by Provider: 05/27/19 09:44 Hx Obtained From: Patient, Family/Psychiatric Specialist Pain Intensity: 6 Allergies/Adverse Reactions: Allergies Allergy/AdvReac Type Severity Reaction Status Date / Time Iodinated Contrast Media Allergy Intermediate Rash Verified 05/27/19 09:40 [Iodinated Contrast- Oral and IV Dye] iodine Allergy Intermediate Rash Verified 05/27/19 09:40 tramadol Allergy Unknown Verified 05/27/19 09:40 Reaction Details amoxicillin [From Augmentin] AdvReac Severe mouth sores Verified 05/27/19 09:40 clavulanic acid AdvReac Severe mouth sores Verified 05/27/19 09:40 [From Augmentin] sulfamethoxazole AdvReac Severe vomiting, Verified 05/27/19 09:40 [From Bactrim] nausea trimethoprim [From Bactrim] AdvReac Severe vomiting, Verified 05/27/19 09:40 nausea Home Medications: Home Medications Cyanocobalamin TAB (NF) [B-12 Tabs (Nf)] 2,500 mcg SL DAILY 05/27/19 [History Confirmed 05/27/19] PMH/Surg Hx/FS Hx/Imm Hx Previously Healthy: Yes Endocrine/Hematology History: Denies: Hx Diabetes Cardiovascular History: Reports: Hx Cardiac Arrest - 20 years ago, Hx Coronary Artery Disease, Hx Hypertension, Other Cardiovascular Problems/Disorders - hypercholesterolemia Denies: Hx Pacemaker/ICD, Hx Peripheral Vascular Disease Respiratory History: Reports: Hx Asthma, Hx Chronic Obstructive Pulmonary Disease (COPD), Hx Seasonal Allergies GI History: Reports: Hx Diverticulosis, Hx Gastroesophageal Reflux Disease - on meds, Other GI Disorders - diverticulitis HX of Musculoskeletal History: Reports: Hx Arthritis - RA,OSTEOARTHRITS BILAT HIPS Sensory History: Reports: Hx Cataracts - bilateral, Hx Contacts or Glasses, Hx Vision Problem Denies: Hx Hearing Aid Opthamlomology History: Reports: Hx Cataracts - bilateral, Hx Contacts or Glasses, Hx Vision Problem Neurological History: Denies: Hx Transient Ischemic Attacks (TIA) Psychiatric History: Denies: Hx Panic Disorder - Cancer History Cancer Type, Location and Year: skin CA Hx Chemotherapy: No Hx Radiation Therapy: No - Surgical History Surgery Procedure, Year, and Place: tonsillectomy as a child. hysterectomy [facility] umbilical hernia repair [facility]. left inguinal hernia repair. bilateral cataract extractions with IOL's. 06/2017 biopsy left cheek. 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 Hx Anesthesia Reactions: No Infectious Disease History: No Infectious Disease History: Reports: Hx Clostridium Difficile Denies: Hx of Known/Suspected MRSA, Hx Shingles, Hx Tuberculosis, Traveled Outside the [place] in Last 30 Days - Family History Known Family History: Positive: Unknown - adopted , Non-Contributory - Social History Occupation: Retired Lives: With Family Alcohol Use: Rare Substance Use Type: Reports: None Hx Tobacco Use: Yes Smoking Status (MU): Former Smoker Amount Used/How Often: 1/2 ppd for 40 years Review of Systems Positive: Fever, Chills Cardiovascular: Negative Negative: Palpitations, Chest Pain Respiratory: Negative Negative: Shortness Of Breath, Cough Positive: Abdominal Pain, Vomiting, Diarrhea, Nausea Genitourinary: Negative Negative: dysuria Skin: Negative Neurological: Negative All Other Systems Reviewed And Are Negative: Yes Physical Exam Triage Information Reviewed: Yes Vital Signs On Initial Exam: Initial Vitals Temp Pulse Resp BP Pulse Ox 103.2 F 89 16 167/87 92 05/27/19 09:37 05/27/19 09:37 05/27/19 09:37 05/27/19 09:37 05/27/19 09:37 Vital Signs Reviewed: Yes Appearance: Positive: Pain Distress - Patient lying in bed, appears to feel unwell. Family present. Answers questions appropriately. Skin: Positive: Warm, Dry Head/Face: Positive: Normal Head/Face Inspection Eyes: Positive: Normal, EOMI Neck: Positive: Supple Respiratory/Lung Sounds: Positive: Clear to Auscultation, Breath Sounds Present Cardiovascular: Positive: Normal, RRR Abdomen Description: Positive: Other: - Abdomen is soft with diffuse tenderness. Diagnostics - Vital Signs Vital Signs Temp Pulse Resp BP Pulse Ox 05/27/19 10:18 99.2 F 83 24 172/79 92 05/27/19 10:00 83 19 94 05/27/19 09:50 89 95 05/27/19 09:48 86 168/92 94 05/27/19 09:37 103.2 F 89 16 167/87 92 - Laboratory Lab Results: Lab Results 05/27/19 05/27/19 05/27/19 Range/Units 09:57 09:57 09:57 WBC 20.1 H (3.5-10.8) 10^3/uL RBC 3.68 L (3.70-4.87) 10^6 /uL Hgb 11.3 L (12.0-16.0) g/dL Hct 33 L (35-47) % MCV 90 (80-97) fL MCH 31 (27-31) pg MCHC 34 (31-36) g/dL RDW 15 (10-15) % Plt Count 143 L (150-450) 10^3/uL MPV 7.1 L (7.4-10.4) fL Neut % (Auto) 92.6 % Lymph % (Auto) 2.8 % [place] % (Auto) 3.3 % Eos % (Auto) 0.9 % Baso % (Auto) 0.4 % Absolute Neuts (auto) 18.6 H (1.5-7.7) 10^3/ul Absolute Lymphs (auto) 0.6 L (1.0-4.8) 10^3/ul Absolute Monos (auto) 0.7 (0-0.8) 10^3/ul Absolute Eos (auto) 0.2 (0-0.6) 10^3/ul Absolute Basos (auto) 0.1 (0-0.2) 10^3/ul Absolute Nucleated RBC 0.0 10^3/ul Nucleated RBC % 0.0 Sodium 139 (135-145) mmol/L Potassium 3.8 (3.5-5.0) mmol/L Chloride 107 (101-111) mmol/L Carbon Dioxide 23 (22-32) mmol/L Anion Gap 9 (2-11) mmol/L BUN 19 (6-24) mg/dL Creatinine 1.14 H (0.51-0.95) mg/dL Est GFR ( Amer) 54.4 (>60) Est GFR (Non-Af Amer) 45.0 (>60) BUN/Creatinine Ratio 16.7 (8-20) Glucose 138 H (70-100) mg/dL Lactic Acid 1.1 (0.5-2.0) mmol/L Calcium 8.9 (8.6-10.3) mg/dL Magnesium 1.5 L (1.9-2.7) mg/dL Total Bilirubin 0.80 (0.2-1.0) mg/dL AST 14 (13-39) U/L ALT 7 (7-52) U/L Alkaline Phosphatase 100 (34-104) U/L Troponin I 0.01 (<0.04) ng/mL C-Reactive Protein 26.08 H (<8.01) mg/L Total Protein 6.7 (6.4-8.9) g/dL Albumin 4.2 (3.2-5.2) g/dL Globulin 2.5 (2-4) g/dL Albumin/Globulin Ratio 1.7 (1-3) Lipase 15 (11.0-82.0) U/L Result Diagrams: 05/27/19 09:57 05/27/19 09:57 Lab Statement: Any lab studies that have been ordered have been reviewed, and results considered in the medical decision making process. Abdominal Pain Fem Course/Dx - Course Course Of Treatment: Patient presenting for acute abdominal pain, vomiting, diarrhea, fever. Temperature is 103F. Patient was started on IV fluids, Zofran and Tylenol for fever. EKG done at 0954 shows a sinus rhythm of 84bpm, left axis deviation, no ST elevation or depression. Labs show leukocytosis of 20,000, CRP 26, mag 1.5. Patient with CT contrast allergy so noncon CT obtained and is negative for acute findings, reading per radiology. Chest x- ray shows questionable infiltrate versus atelectasis per radiology. Patient without complaints of cough. Reexamination patient is feeling better and pain has improved. Case discussed with hospitalist, Dr. Hurt, with concerns of leukocytosis and fever. He agrees to admission. - Diagnoses Differential Diagnosis: Positive: Bowel Obstruction, Diverticulitis, Gall Bladder Disease, Hepatitis, Pneumonia, Renal Colic, Urinary Tract Infection Provider Diagnoses: Fever, Leukocytosis, Vomiting Discharge ED - Sign-Out/Discharge Documenting (check all that apply): Patient Departure Patient Received Moderate/Deep Sedation with Procedure: No - Discharge Plan Condition: Stable Disposition: ADMITTED TO [facility] Disposition and Condition Condition: STABLE Disposition: Admitted to [facility]
[2019-05-27] MEDS ORDERED: Ondansetron TAB* 4 MG PO PRN (13:44)
[2019-05-27] MEDS ORDERED: SPIRIVA Respimat* (tiotropium) 2.5 mcg/inh Inhaler INH SCH (13:45)
[2019-05-27] MEDS ORDERED: amLODIPine TAB* 5 MG PO SCH (13:45)
[2019-05-27] MEDS ORDERED: Magnesium Sulfate IV* 3 GM in NS 0.9% 100 ML* 100 ML IVPB ONE (13:49)
[2019-05-27 14:29] LABS: Urine Appearance Cloudy; Urine Bacteria 1+ (Absent); Urine Bilirubin Negative (Negative); Urine Blood 1+ (Negative); Urine Color Yellow; Urine Glucose Negative (Negative); Urine Ketones Negative (Negative); Urine Nitrite Negative (Negative); Urine Protein 1+(30 mg/dL) (Negative); Urine Red Blood Cell 2+(6-10/hpf) (Absent); Urine Specific Gravity 1.011 (1.010-1.030); Urine Squamous Epithelial Cell Present (Absent); Urine Urobilinogen Negative (Negative); Urine White Blood Cell Trace(0-5/hpf) (Absent)
[2019-05-27] MEDS: Aspirin EC TAB* 81 MG TAB.EC PO SCH (14:36)
[2019-05-27] MEDS: Pantoprazole TAB * 40 MG TAB PO SCH (14:36)
--- NOTE | 2019-05-27 15:44 | HP ---
HISTORY AND PHYSICAL: DATE OF ADMISSION: 05/27/19 ADMITTING PROVIDER: Anish Hurt MD PRIMARY CARE PROVIDER: Anish Hurt MD OUTPATIENT MEDICAL SCIENTIFIC OFFICER: Dr. Dillard. CHIEF COMPLAINT: Severe 10/10 abdominal pain, fever, diarrhea, nausea. HISTORY OF PRESENT ILLNESS: Analilia Guerrero is an 88-year-old female with past medical history of hypertension, takotsubo's cardiomyopathy (twice, resolved), GA, CAD, GERD, asthma, chronic kidney disease stage 3, diverticulosis, diverticulitis, remote C. diff, venous insufficiency, hyperlipidemia. The evening prior to admission, she felt more tired than usual and went to bed 90 minutes before she usually does. She woke up at 3 a.m. on the morning of admission with complaint of frequent trips to the bathroom with loose mushy stools. She had some nausea with dry heaves and developed severe 10/10 achy abdominal pain in her lower abdomen. She denied dysuria or increased frequency. She felt very cold/could not get warm. She presented to [facility] Emergency Room and initial workup revealed temperature of 103.2, leukocytosis of 20.1, no lactic acidosis, and CRP of 26. Her temperature decreased to 99.2 after 1 L of normal saline fluid was administered, but no Tylenol. She has not been able to produce urine sample yet and has not gotten any antibiotics yet. She had a CT abdomen and pelvis without contrast (she has IV CONTRAST allergy), which demonstrated some bilateral nephrolithiasis without hydronephrosis, atherosclerosis and extensive colonic diverticulosis. Chest x-ray demonstrated patchy atelectasis versus consolidation of the right upper lung field. Recommend followup until resolution to exclude underlying pulmonary parenchymal pathology. She was referred to hospitalist service given the abdominal pain, leukocytosis and fevers. She is saying that she is feeling a bit better now. The abdominal pain is greatly reduced and she has not had a bowel movement since 7:45 a.m. She denies any shortness of breath, chest pain. She did develop a headache she says only after she got to the emergency room and they put oxygen via nasal cannula (she had been satting 92% on room air on admission) . She denies any rashes. PAST MEDICAL HISTORY: CAD; GA; chronic kidney disease, stage 3; hypertension; hyperlipidemia; asthma; GERD; takotsubo's cardiomyopathy x2, status post resolution; diverticulosis; diverticulitis; remote C. diff; chronic venous stasis. MEDICATIONS: Include: 1. Cyanocobalamin 2500 mcg sublingual daily. 2. Probiotic daily. 3. Spiriva 1 puff inhaled q.a.m. 4. Simvastatin 10 mg p.o. q.a.m. 5. MiraLAX 17 g p.o. every other day. 6. Prilosec 20 mg p.o. q.a.m. 7. Singulair 10 mg p.o. q.a.m. 8. Advair 1 puff inhaled b.i.d. 9. Norvasc 5 mg daily. 10. Aspirin 81 mg daily. ALLERGIES: Include IV CONTRAST, rash; IODINE, rash; TRAMADOL, unknown; AUGMENTIN, mouth sores; BACTRIM, vomiting, nausea. FAMILY HISTORY: She was adopted at age 8. SOCIAL HISTORY: The patient is a former smoker, 40-pack year, quit 13 years ago. Rare alcohol use few times a year. No drug use. She is after 67 years of marriage. She lives alone, but with children on either side of her. She is a retired nurse. REVIEW OF SYSTEMS: A complete 14-point review of systems negative except as per HPI. PHYSICAL EXAMINATION GENERAL APPEARANCE: No acute distress, lying in the hospital bed. VITAL SIGNS: Temperature initially 103.2, most recently 99.2; heart rate 82; respiratory 16 to 25; satting 92% on room air; blood pressure initially 167/87. HEENT: Normocephalic, atraumatic. Pupils are equal, round, and reactive to light. Extraocular motions intact. No scleral icterus. LUNGS: Clear to auscultation bilaterally with slight wheezing. No rhonchi or rales. CARDIOVASCULAR: Regular rate and rhythm. No murmurs, rubs, or gallops. ABDOMEN: Soft. There is mild tenderness, worse in the right lower quadrant and suprapubic, slightly in the left lower quadrant. No rebound. No guarding. No Lyon's sign. EXTREMITIES: Warm, well perfused. No peripheral edema. NEURO: Alert and oriented x3. Cranial nerves II through XII intact. Moving all extremities. SKIN: There is slight erythema to her right ankle with slight warmth, nontender. DIAGNOSTIC STUDIES/LAB DATA: White count 20.1, hemoglobin 11.3, hematocrit 33 , platelets 143. Sodium 139, potassium 3.8, chloride 107, carbon dioxide 23, BUN 19, creatinine 1.14, glucose 138. Lactic acid 1.1 and repeat is 0.6, magnesium 1.5. AST 14, ALT 7, total bili 0.8, alk phos 100. Troponin 0.01. CRP 26.8. Lipase 15. Imaging: Chest x-ray demonstrated patchy atelectasis versus consolidation in the right upper lung field, recommend followup until resolution to exclude underlying pulmonary parenchymal pathology. CT abdomen and pelvis noncontrast demonstrated bilateral nephrolithiasis without hydronephrosis, atherosclerosis, and extensive colonic diverticulosis. ASSESSMENT AND PLAN: Analilia Guerrero is an 88-year-old female with past medical history of hypertension; diverticulosis; takotsubo's CM (resolved); gastroesophageal reflux disease, presenting with severe abdominal pain, nausea, dry heaving, fevers, and leukocytosis of unclear etiology. She is feeling a lot better actually after a few hours in the emergency room and after getting 1 L of fluids. Her fevers have improved without other intervention. It has been a few hours since rechecked and she does feel warm on exam. I have asked the nurses again to get a urine sample so we can potentially start some empiric antibiotics for sepsis, likely Cipro & Flagyl versus ceftriaxone. Etiology could include a viral gastroenteritis or Clostridium difficile. She does have remote history of Clostridium difficile, but she describes her bowel movements mostly as mushy and not as watery, also has not had a bowel movement in the last 6-1/2 hours, making that less likely. No recent antibiotic courses. She does have some erythema on the right ankle and a skin wound bandage 4 inches proximally and slight warmth, potential minor cellulitis playing a role in her presentation. She does have a headache, some fatigue. I will add on a flu swab. She does have some patchy right upper lobe atelectasis, but denies any respiratory symptoms whatsoever. I am adding on a strep urinary antigen and legionella urinary antigen. Blood cultures were obtained. She is slightly hypertensive in the setting of not taking her morning medications. Given her nontoxic appearance, I am going to continue her amlodipine 5 mg daily and her other home meds such as omeprazole 20 mg daily, simvastatin 10 mg daily, her Spiriva, Singulair and Advair, aspirin 81 mg daily. I am giving her Tylenol 650 mg p.o. q.6 hours p.r.n. for mild pain or fevers. I will trend her CBC and BMP daily. I am adding a BNP given her history of takotsubo's. Heart healthy diet. She is a full code per her sonGustavo. [id number]/[facility] #: [id number] [facility]
[2019-05-27] MEDS: Acetaminophen TAB* 325 MG PO PRN (16:35)
[2019-05-27] MEDS: Mometasone/Formoter 200/5 MDI INH SCH ×2 (16:57→21:09)
[2019-05-27] MEDS: cefTRIAXone(*) 1 GM in NS 0.9% 50 ML* 50 ML IVPB SCH ×2 (17:16→18:02)
[2019-05-27] MEDS: Montelukast Sodium TAB* 10 MG PO SCH (17:57)
[2019-05-27] MEDS: CMC:Simvastatin TAB(NF) 10 MG TAB PO SCH (17:57)
[2019-05-27 17:58] LABS: Influenza A Molecular NEGATIVE (Negative); Influenza B Molecular NEGATIVE (Negative)
[2019-05-28] MEDS: Acetaminophen TAB* 325 MG PO PRN ×2 (03:04→20:41)
[2019-05-28 06:46] LABS: ABS Eosinophils 0.3 10^3/ul (0-0.6); ABS Monocytes 0.8 10^3/ul (0-0.8); ABS Neutrophils 12.4 10^3/ul (1.5-7.7); Eosinophil % 1.7 %; Hematocrit 27 % (35-47); Hemoglobin 9.3 g/dL (12.0-16.0); Lymphocyte % 6.7 %; Mean Corpuscular HGB Conc 35 g/dL (31-36); Mean Corpuscular Hemoglobin 31 pg (27-31); Mean Corpuscular Volume 91 fL (80-97); Mean Platelet Volume 6.8 fL (7.4-10.4); Platelet Count 110 10^3/uL (150-450); Red Blood Count 2.96 10^6 /uL (3.70-4.87); Red Cell Distribution Width 15 % (10-15); White Blood Count 14.5 10^3/uL (3.5-10.8)
[2019-05-28] MEDS: Mometasone/Formoter 200/5 MDI INH SCH ×2 (08:04→20:48)
[2019-05-28] MEDS: SPIRIVA Respimat* (tiotropium) 2.5 mcg/inh Inhaler INH SCH (08:05)
--- NOTE | 2019-05-28 08:14 | PN ---
Subjective Date of Service: 05/28/19 Interval History: HOSPITALIST PROGRESS NOTE Patient seen and examined at bedside. Care reviewed and d/w Mackenzie Atkins RN. She feels better today. No further episodes of diarrhea or vomiting; has mild nausea. Family History: Unchanged from Admission Social History: Unchanged from Admission Past Medical History: Unchanged from Admission Objective Active Medications: Acetaminophen (Tylenol Tab*) 650 mg PO Q6H PRN PRN Reason: PAIN-MILD/TEMP >/= 100.4 Last Admin: 05/28/19 03:04 Dose: 650 mg Amlodipine Besylate (Norvasc Tab*) 2.5 mg PO BID [facility] Aspirin (Aspirin Ec Tab*) 81 mg PO QAM [facility] Last Admin: 05/27/19 14:36 Dose: 81 mg Ceftriaxone Sodium 1 gm/ (Sodium Chloride) 50 mls @ 100 mls/hr IVPB Q24H [facility] Last Admin: 05/27/19 18:02 Dose: 100 mls/hr Mometasone Furoate/Formoterol Fumar (Dulera 200/5 Mdi*) 2 puff INH BID [facility] Last Admin: 05/28/19 08:04 Dose: 2 puff Montelukast Sodium (Singulair Tab*) 10 mg PO QPM [facility] Last Admin: 05/27/19 17:57 Dose: 10 mg Ondansetron HCl (Zofran Tab*) 4 mg PO Q8H PRN PRN Reason: NAUSEA Last Admin: 05/28/19 03:04 Dose: 4 mg Pantoprazole Sodium (Protonix Tab*) 40 mg PO QAM [facility] Last Admin: 05/27/19 14:36 Dose: 40 mg Simvastatin (Zocor(Nf)) 10 mg PO QPM [facility] Last Admin: 05/27/19 17:57 Dose: 10 mg Tiotropium [place] (Spiriva Respimat 2.5 Mcg) 2 puff INH QAM [facility] Last Admin: 05/28/19 08:05 Dose: 2 puff Vital Signs - 8 hr 05/28/19 05/28/19 03:47 07:15 Temperature 97.4 F 97.9 F Pulse Rate 71 66 Respiratory 16 22 Rate Blood Pressure 134/49 142/51 (mmHg) O2 Sat by Pulse 93 93 Oximetry Oxygen Devices in Use Now: None Appearance: Elderly lady sitting up in bed in NAD. Eyes: No Scleral Icterus Ears/Nose/Mouth/Throat: Mucous Membranes Moist Neck: Trachea Midline Respiratory: Symmetrical Chest Expansion and Respiratory Effort, Clear to Auscultation Cardiovascular: RRR - Normal S1 and S2 Abdominal: - - Soft, mild LLQ tenderness, NG, NR, BS+ Extremities: No Edema Neurological: Alert and Oriented x 3, NL Muscle Strength and Tone Result Diagrams: 05/28/19 06:19 05/28/19 11:18 Assess/Plan/Problems-Billing Assessment: Mrs Guerrero is an 88yo F with PMH of CAD, CKD stage 3, HTN, HLD, asthma, GERD, Takotsubo's CMP, diverticulosis, h/o C. diff; who presented to ED with c/o fever , abdominal pain, N/V/D. - Patient Problems (1) Sepsis Comment: - Present on admission with fever and leukocytosis. - Source is gastroenteritis. (2) Gastroenteritis Comment: - Suspect viral. - Still has some nause, but other symptoms resolved. - Continue Ceftriaxone empirically. (3) Cellulitis Comment: - Mild RLE cellulitis - continue Ceftriaxone. (4) HTN (hypertension) Comment: - Controlled - continue Amlodipine. (5) DVT prophylaxis Comment: - SQ heparin.
[2019-05-28] MEDS: Aspirin EC TAB* 81 MG TAB.EC PO SCH (10:48)
[2019-05-28] MEDS: Pantoprazole TAB * 40 MG TAB PO SCH (10:48)
[2019-05-28] MEDS: amLODIPine TAB* 5 MG PO SCH ×2 (10:49→20:27)
[2019-05-28 12:52] LABS: BUN/Creatinine Ratio 17.7 (8-20); Calcium 8.1 mg/dL (8.6-10.3); EGFR African American 49.4 (>60); EGFR Non-African American 40.8 (>60); Magnesium 2.4 mg/dL (1.9-2.7); Potassium 3.9 mmol/L (3.5-5.0)
[2019-05-28] MEDS: cefTRIAXone(*) 1 GM in NS 0.9% 50 ML* 50 ML IVPB SCH (17:00)
[2019-05-28] MEDS: CMC:Simvastatin TAB(NF) 10 MG TAB PO SCH (17:00)
[2019-05-28] MEDS: Montelukast Sodium TAB* 10 MG PO SCH (17:00)
[2019-05-28] MEDS: Heparin VIAL(*) 5000 UNITS/ML VIAL (FIVE THOUSAND) SUBCUT SCH (20:27)
[2019-05-29] MEDS: Heparin VIAL(*) 5000 UNITS/ML VIAL (FIVE THOUSAND) SUBCUT SCH (05:24)
[2019-05-29 06:43] LABS: ABS Eosinophils 0.6 10^3/ul (0-0.6); ABS Lymphocytes 0.8 10^3/ul (1.0-4.8); ABS Monocytes 0.6 10^3/ul (0-0.8); ABS Neutrophils 6.7 10^3/ul (1.5-7.7); Eosinophil % 7.2 %; Hematocrit 29 % (35-47); Hemoglobin 9.9 g/dL (12.0-16.0); Lymphocyte % 9.5 %; Mean Corpuscular HGB Conc 35 g/dL (31-36); Mean Corpuscular Hemoglobin 31 pg (27-31); Mean Corpuscular Volume 91 fL (80-97); Mean Platelet Volume 7.3 fL (7.4-10.4); Platelet Count 125 10^3/uL (150-450); Red Blood Count 3.16 10^6 /uL (3.70-4.87); Red Cell Distribution Width 15 % (10-15); White Blood Count 8.8 10^3/uL (3.5-10.8)
[2019-05-29] MEDS: Mometasone/Formoter 200/5 MDI INH SCH (08:10)
[2019-05-29] MEDS: SPIRIVA Respimat* (tiotropium) 2.5 mcg/inh Inhaler INH SCH (08:10)
[2019-05-29] MEDS: Aspirin EC TAB* 81 MG TAB.EC PO SCH (08:42)
[2019-05-29] MEDS: Pantoprazole TAB * 40 MG TAB PO SCH (08:42)
[2019-05-29] MEDS: amLODIPine TAB* 5 MG PO SCH (08:42)
[2019-05-29] MEDS: Acetaminophen TAB* 325 MG PO PRN (08:49)
[2019-05-29 12:16] VITALS: BP 148/68
--- NOTE | 2019-05-30 01:16 | DS ---
CC: Dr. Anish Hurt; Dr. Dillard * DISCHARGE SUMMARY: DATE OF ADMISSION: 05/27/19 DATE OF DISCHARGE: 05/29/19 PRIMARY CARE PROVIDER: Dr. Anish Hurt. OUTPATIENT SPECIAL DEPUTY SHERIFF: Dr. Dillard. DISCHARGE DIAGNOSES: 1. Acute gastroenteritis. 2. Sepsis secondary to acute gastroenteritis. 3. Mild right lower extremity cellulitis. SECONDARY DIAGNOSES: 1. Coronary artery disease. 2. Chronic kidney disease, stage 3. 3. Hypertension. 4. Hyperlipidemia. 5. Asthma. 6. Gastroesophageal reflux disease. 7. Takotsubo's cardiomyopathy. 8. Diverticulosis. 9. Diverticulitis. 10. Remote history of Clostridium difficile. 11. Chronic venous stasis. HOSPITAL COURSE: Ms. Guerrero is an 88-year-old female with a past medical history as stated above, who presented to the emergency room with complaints of abdominal pain, fever, diarrhea, and nausea. For more details about her presentation, I refer you to her history and physical. In the emergency room, the patient was found to have a wbc of 20.1, fever of 103.2. A CT of the abdomen and pelvis showed bilateral nephrolithiasis without hydronephrosis, atherosclerosis and an extensive colonic diverticulosis. The impression was that the patient likely had a gastroenteritis as her symptoms resolved in the course of 12 hours. After being admitted to the hospital, she had no further diarrhea. She remained afebrile; nausea and vomiting resolved. The patient was started on ceftriaxone for right lower extremity cellulitis with improvement of the area of erythema. Her cellulitis was mild and I believe it was responsible for her systemic symptoms. I believe her symptoms are secondary to gastritis probably viral, but she could also have toxin mediated diarrhea. The patient does not remember eating any suspected food or any sick contacts. The patient also developed mild thrombocytopenia probably secondary to her infection and this is also improving. The patient is found to be medically stable to be discharged home today to follow up with Dr. Hurt as outpatient. PHYSICAL EXAMINATION: Vital Signs: Temperature 98.2, heart rate is 70 today, respiratory rate is 16, oxygen saturation is 95% on room air, blood pressure is 148/68. General: The patient is a pleasant, elderly lady lying in bed, in no acute distress. CVS: Normal S1, S2. Regular rate and rhythm. Chest: Breath sounds bilaterally, no added sounds. Abdomen is soft, nontender, nondistended. Bowel sounds present. Extremities: The patient has chronic skin changes secondary to chronic venous stasis, but the area of the erythema on her right lower extremity is improved. Neuro: She is alert and oriented x3. Able to move all 4 extremities. DIET: Regular diet. ACTIVITIES: As tolerated. DISPOSITION: To home. STATUS WHILE IN THE HOSPITAL: Observation. CONDITION AT THE TIME OF DISCHARGE: Fair. MEDICATION LIST: 1. Aspirin 81 mg p.o. daily. 2. Align 4 mg p.o. daily. 3. Carvedilol 12.5 mg p.o. b.i.d. 4. Vitamin B12 2500 mcg sublingual daily. 5. Advair 250/50 one puff inhale b.i.d. 6. Montelukast 10 mg p.o. at bedtime. 7. Norvasc 2.5 mg p.o. b.i.d. 8. Omeprazole 20 mg p.o. daily. 9. MiraLAX 17 grams p.o. every other day. Hold for loose stools. 10. Simvastatin 10 mg p.o. at bedtime. 11. Spiriva 1 puff inhale daily. 12. PreserVision 1 capsule p.o. b.i.d. New medication: Cephalexin 500 mg p.o. t.i.d. for 5 more days. Please keep in mind this is a summarized version of this patient's hospital stay. If you need more information, please feel free to call me at [phone] or please obtain full medical records. TIME SPENT: Approximately 45 minutes was spent on this discharge. [id number]/[facility] #: [id number] [facility]ITALDarin
== END 2019-05-29 14:05 | disposition home or self-care (01) ==
LOC: ED 09:29 → MED 13:25
PROVIDERS: ADMIT Internal Medicine; ATTEND Internal Medicine
DX: A41.9 Sepsis, unspecified organism (principal); K52.89 Other specified noninfective gastroenteritis and colitis; L03.115 Cellulitis of right lower limb; I25.10 Atherosclerotic heart disease of native coronary artery without angina pectoris; I12.9 Hypertensive chronic kidney disease with stage 1 through stage 4 chronic kidney disease, or unspecified chronic kidney disease; N18.3 Chronic kidney disease, stage 3 (moderate); E78.5 Hyperlipidemia, unspecified; J45.909 Unspecified asthma, uncomplicated; K21.9 Gastro-esophageal reflux disease without esophagitis; I51.81 Takotsubo syndrome; K57.92 Diverticulitis of intestine, part unspecified, without perforation or abscess without bleeding; K57.90 Diverticulosis of intestine, part unspecified, without perforation or abscess without bleeding; E78.00 Pure hypercholesterolemia, unspecified; Z86.19 Personal history of other infectious and parasitic diseases; I87.8 Other specified disorders of veins; Z79.82 Long term (current) use of aspirin; Z79.899 Other long term (current) drug therapy; I25.2 Old myocardial infarction; Z87.891 Personal history of nicotine dependence
CPT/HCPCS: 36415; 71045; 74176; 80048; 80053; 81003; 81015; 83605; 83690; 83735; 83880; 84484; 85025; 86140; 87040; 87077; 87086; 87186; 87899; 93005; 94640; 96361; 96365; 96366; 96367; 96372; 96375; 99285; A9270-GY; G0378; J0696; J1644; J2405; J3535